=== PATIENT | female | born 1985 | race Caucasian/White ===

== ENCOUNTER 2020-11-09 12:18 | Outpatient (REF) | payer OTHER, SELFPAY ==
[2020-11-09 13:25] LABS: MANUAL DIFF FLAG NO
[2020-11-09 13:34] LABS: Basophils Percent Auto 0.4 % (0-2); Eosinophils Absolute Auto 0.2 X10*3/uL (0.0-0.4); Eosinophils Percent Auto 3.7 % (0-4); Hematocrit 40.3 % (37-47); Hemoglobin 13.1 g/dl (12.0-16.0); Imm Gran Abs Auto 0.02 X10*3/uL (0.00-0.03); Imm Gran Pct Auto 0.4 % (0.0-0.4); Lymphocytes Absolute Auto 2.3 X10*3/uL (1.2-4.9); Lymphocytes Percent Auto 40.7 % (20-40); Mean Corpuscular HGB Conc 32.5 g/dl (31.0-35.0); Mean Corpuscular Hemoglobin 27.1 pg (27.0-33.0); Mean Corpuscular Volume 83.4 fL (80-98); Mean Platelet Volume 10.9 fL (9.4-12.3); Monocytes Absolute Auto 0.5 X10*3/uL (0.1-1.2); Monocytes Percent Auto 9.4 % (2-11); Neutrophils Absolute Auto 2.6 X10*3/uL (2.0-8.3); Neutrophils Percent Auto 45.4 % (45-73); Platelet Count 334 X10*3/uL (160-400); Red Blood Count 4.83 X10*6/uL (4.20-5.50); Red Cell Distribution Width 14.2 % (11.0-16.0); White Blood Count 5.6 X10*3/uL (4.8-10.8)
[2020-11-09 13:40] LABS: Estimated Average Glucose 100 mg/dL; Hemoglobin A1c % 5.1 %
[2020-11-09 14:04] LABS: Alanine Aminotransferase 105 U/L (0-31); Albumin Level 4.1 g/dL (3.5-5.0); Alkaline Phosphatase 73 U/L (39-117); Anion Gap 12 (12-20); Aspartate Amino Transferase 40 U/L (5-31); Bilirubin Total 0.7 mg/dL (0.0-1.0); Blood Urea Nitrogen 10 mg/dL (9-16); Calcium 9.1 mg/dL (8.4-10.2); Carbon Dioxide 29 mmol/L (22-29); Chloride 102 mmol/L (96-108); Cholesterol 165 mg/dL; Estimated Glomerular Filt Rate > 60; Glucose Random 96 mg/dL (60-115); HDL Cholesterol 64 mg/dL; LDL Cholesterol Calculated 81 mg/dl; Potassium 4.2 mmol/L (3.3-5.1); Sodium 139 mmol/L (135-145); Total Protein 7.5 g/dL (6.5-8.0); Triglycerides 101 mg/dL
== END 2020-11-09 12:19 | disposition home or self-care (01) ==
LOC: HO.LAB 12:18
PROVIDERS: PCP Internal Medicine; Visit Provider Internal Medicine
DX: I10 Essential (primary) hypertension (principal); M54.5 Low back pain; N62 Hypertrophy of breast; R07.89 Other chest pain; R42 Dizziness and giddiness
CPT/HCPCS: 36415; 80053; 80061; 83036; 85025

== ENCOUNTER 2020-11-18 08:16 | Outpatient (REF) | payer OTHER, SELFPAY ==
--- NOTE | ~2020-11-18 | US_ITS ---
EXAMINATION: US ABDOMEN COMPLETE CLINICAL INFORMATION: Right upper quadrant pain. COMPARISON: Ultrasound abdomen 07/23/2018 TECHNIQUE: Real-time imaging of the abdominal viscera. FINDINGS: PANCREAS: Normal. ABDOMINAL AORTA: The proximal, mid, and distal segments are normal in caliber. INFERIOR VENA CAVA: Visualized portions are normal. LIVER: The liver is enlarged. The liver contour is normal. Parenchymal echogenicity is increased. No focal hepatic lesion. There is no intrahepatic biliary duct dilatation seen. GALLBLADDER: Surgically absent. COMMON BILE DUCT: Normal in caliber measuring 0.27 cm in diameter. RIGHT KIDNEY: Normal. No hydronephrosis. No renal calculi or focal parenchymal lesions. The kidney measures 12.2 cm in maximum dimension. LEFT KIDNEY: Normal. No hydronephrosis. No renal calculi or focal parenchymal lesions. The kidney measures 11.2 cm in maximum dimension. SPLEEN: Normal. The spleen measures 9.6 cm in maximum dimension. FREE FLUID: None. US/US abdomen complete IMPRESSION: Enlarged right hepatic lobe measuring 20.0 cm. No focal lesion seen in the liver. Similar findings were seen on the previous ultrasound 07/23/2018. Since the previous study, the gallbladder has been removed. The rest of the abdominal ultrasound is unremarkable.
[2020-11-18 10:44] LABS: Alanine Aminotransferase 176 U/L (0-31); Albumin Level 4.3 g/dL (3.5-5.0); Alkaline Phosphatase 65 U/L (39-117); Anion Gap 15 (12-20); Aspartate Amino Transferase 106 U/L (5-31); Bilirubin Total 0.5 mg/dL (0.0-1.0); Blood Urea Nitrogen 9 mg/dL (9-16); Calcium 8.9 mg/dL (8.4-10.2); Carbon Dioxide 25 mmol/L (22-29); Chloride 103 mmol/L (96-108); Estimated Glomerular Filt Rate > 60; Glucose Random 95 mg/dL (60-115); HBsAGNum1 0.18 S/CO (0.00-0.99); Hepatitis B Surface Antigen Negative (Negative); Potassium 4.2 mmol/L (3.3-5.1); Sodium 139 mmol/L (135-145); Total Protein 7.8 g/dL (6.5-8.0)
[2020-11-18 10:46] LABS: Thyroid Stimulating Hormone 2.34 uIU/mL (0.32-4.0)
[2020-11-18 10:57] LABS: HBS Num1 35.07 mIU/mL (0-7.99); HBc Num1 0.09 S/CO (0.00-0.79); Hepatitis B Core Antibody Nonreactive (Nonreactive); ~HepC Num1 0.18 S/CO (0.00-0.79); ~Hepatitis B Surface Antibody REACTIVE (Nonreactive); ~Hepatitis C Antibody Nonreactive (Nonreactive)
[2020-11-19 04:44] LABS: Hepatitis A Antibody IgM 0.21 Index (0-0.79); ~Hepatitis A Antibody IgM Nonreactive (Nonreactive)
== END 2020-11-18 08:17 | disposition home or self-care (01) ==
LOC: HO.US 08:16
PROVIDERS: PCP Internal Medicine; Visit Provider Internal Medicine
DX: R10.11 Right upper quadrant pain (principal); E66.01 Morbid (severe) obesity due to excess calories; H81.12 Benign paroxysmal vertigo, left ear; I10 Essential (primary) hypertension; M54.16 Radiculopathy, lumbar region; R74.01 Elevation of levels of liver transaminase levels
CPT/HCPCS: 36415; 76700; 80053; 84443; 86704; 86706; 86709; 86803; 87340

== ENCOUNTER 2020-11-22 00:26 | Emergency (ER) | payer OTHER, SELFPAY ==
[2020-11-22 00:31] VITALS: BP 130/82; PULSE 77; RESP 16; TEMP 36.8; O2SAT 100; BMI 39.6
--- NOTE | 2020-11-22 01:09 | ED_ITS ---
HPI - Headache General Chief Complaint: Headache Stated Complaint: Headache/? High Blood Pressure Time Seen by Provider: 11/22/20 00:32 Source: patient Mode of arrival: ambulatory History of Present Illness HPI Narrative: This is a 35-year-old female with history of headaches, hypertension who presents with onset of headache that goes from the right shoulder up along the side of her neck and along the right side of her head. This is not associated with photosensitivity auditory sensitivity but patient does describe some dizziness, mild nausea, and states that she did take Tylenol 1 time for the headache with mild improvement but then it came back. She denies any recent illnesses, fevers, chills. Patient did tell triage that the headache started on Sunday and that she had blurry vision, however these were not communicated at this time. She currently suffers from vertigo and is under the care of her primary care provider for this. She denies any speech changes or unilateral numbness/tingling/weakness. She was also concerned because she stated that her blood pressure machine indicated that it was low. Related Data Allergies Allergy/AdvReac Type Severity Reaction Status Date / Time No Known Allergies Allergy Unverified 11/22/20 00:30 Review of Systems Review of Systems: Pertinent positives and negatives as stated in HPI and 10 point review of systems is otherwise negative. PMFSH Past Medical History Source: nursing notes reviewed Medical History Cholecystectomy planned Fibromyalgia Vertigo Social History Social History Smoking Status: Former smoker Use of substances other than those prescribed or required for medical reasons: No Advance Directives: No Advance Directives Information Provided: No Physical Exam Vital Signs: Vital Signs: Last Vital Signs Temp 98.3 F 11/22/20 00:31 Pulse 77 11/22/20 00:31 Resp 16 11/22/20 00:31 BP 130/82 11/22/20 00:31 Pulse Ox 100 11/22/20 00:31 Body Mass Index 39.6 VITAL SIGNS: Reviewed. GENERAL: Well developed, well nourished, in no acute distress. HEAD: Normocephalic/atraumatic EYES: PERRLA, EOMI intact without pain, no nystagmus EARS: Ext canals without abnormality, TMs non-bulging and non-erythematous NOSE: Nares patent bilateral OROPHARYNX: no oral lesions noted, posterior pharynx clear NECK: Supple, no adenopathy LUNGS: Normal breath sounds. No adventitious sounds or accessory muscle use. SpO2<100> CARDIOVASCULAR: Regular rate and rhythm without noted murmurs ABDOMEN: Obese, Soft, non-tender, non-distended with bowel sounds. NEUROLOGIC: Alert and oriented x 4. Strength and sensation to light touch were grossly intact x 4, cranial nerves 2-12 are grossly intact, cerebellar testing is intact, no facial asymmetry. Course Course Course Narrative: This is a 35-year-old female with history and clinical presentation consistent with tension headache and suspect that the dizziness is part of her recently diagnosed vertigo. Low clinical suspicion for any intracranial pathologies. -labs, UA, U preg, IV fluids + migraine cocktail On review of all investigations there are no acute findings from baseline and on re-evaluation patient has had significant improvement of her headache and resolution of her dizziness. All results and findings were discussed with her bedside and she was strongly encouraged to follow-up with her primary care provider tomorrow morning for re-evaluation and further outpatient management her headaches. MDM - Headache Lab Data Result diagrams: 11/22/20 01:20 11/22/20 01:20 Labs: Lab Results 11/22/20 11/22/20 11/22/20 Range/Units 01:20 01:20 01:20 WBC 8.0 (4.8-10.8) X10*3/uL RBC 4.49 (4.20-5.50) X10*6/uL Hgb 12.1 (12.0-16.0) g/dl Hct 37.2 (37-47) % MCV 82.9 (80-98) fL MCH 26.9 L (27.0-33.0) pg MCHC 32.5 (31.0-35.0) g/dl RDW 14.4 (11.0-16.0) % Plt Count 284 (160-400) X10*3/uL MPV 10.1 (9.4-12.3) fL Immature Gran % (Auto) 0.2 (0.0-0.4) % Neut % (Auto) 42.5 L (45-73) % Lymph % (Auto) 44.0 H (20-40) % Garrard % (Auto) 9.0 (2-11) % Eos % (Auto) 4.1 H (0-4) % Baso % (Auto) 0.2 (0-2) % Lymph # (Auto) 3.5 (1.2-4.9) X10*3/uL Garrard # (Auto) 0.7 (0.1-1.2) X10*3/uL Eos # (Auto) 0.3 (0.0-0.4) X10*3/uL Baso # (Auto) 0.0 (0.0-0.2) X10*3/uL Abs Immat Gran (auto) 0.02 (0.00-0.03) X10*3/uL Absolute Neuts (auto) 3.4 (2.0-8.3) X10*3/uL Absolute Nucleated RBC 0.000 (0.0-0.012) X10*3/uL Nucleated RBC % (auto) 0.0 (0.0-0.2) /100WBC Sodium 137 (135-145) mmol/L Potassium 3.7 (3.3-5.1) mmol/L Chloride 104 (96-108) mmol/L Carbon Dioxide 24 (22-29) mmol/L Anion Gap 13 (12-20) BUN 13 (9-16) mg/dL Creatinine 0.77 (0.5-1.4) mg/dL Estim Creat Clear Calc 108.5 Estimated GFR > 60 Random Glucose 84 (60-115) mg/dL Calcium 8.4 (8.4-10.2) mg/dL Total Bilirubin 0.2 (0.0-1.0) mg/dL AST 36 H D (5-31) U/L ALT 110 H (0-31) U/L Alkaline Phosphatase 59 (39-117) U/L Total Protein 6.8 (6.5-8.0) g/dL Albumin 3.7 (3.5-5.0) g/dL Urine Color YELLOW Urine Appearance CLEAR Urine pH 6.0 (5.0-8.0) Ur Specific [place] 1.025 (1.005-1.025) Urine Protein NEG (NEG-TRACE) MG/DL Urine Glucose (UA) NEG (NEG) MG/DL Urine Ketones NEG (NEG) MG/DL Urine Blood NEG (NEG) Urine Nitrite NEG (NEG) Ur Leukocyte Esterase NEG (NEG) Discharge Plan Discharge Clinical Impression: Vertigo Headache Qualifiers: Headache type: tension-type Headache chronicity pattern: acute headache Intractability: not intractable Qualified Code(s): G44.209 - Tension-type headache, unspecified, not intractable Patient Disposition: Home, Self-Care Instructions: General Headache (ED), Vertigo (ED) Additional Instructions: 1. Tylenol 1000 mg, orally, every 6 hours as needed for headache control. Do not exceed 4000 mg within 24 hours. 2. Ibuprofen 400 mg, orally with milk or food, every 6 hours as needed for headache control. Recommend taking this in combination with the Tylenol for improved pain control. 3. Lidocaine patch, this is available at every [facility], apply to area of maximal tenderness on the neck/shoulder area as directed on the outside packaging. As there appears to be somewhat of a tension/stress component to your headaches. 4. Please follow-up with your primary care provider in the morning for re- evaluation. Do not hesitate to return to the emergency department for any acute worsening of your symptoms. Referrals: Graciela Benson MD [Primary Care Provider] - 2 days (Re-evaluation outpatient management of headaches.)
[2020-11-22 01:26] LABS: MANUAL DIFF FLAG NO
[2020-11-22 01:27] LABS: Basophils Percent Auto 0.2 % (0-2); Eosinophils Absolute Auto 0.3 X10*3/uL (0.0-0.4); Eosinophils Percent Auto 4.1 % (0-4); Hematocrit 37.2 % (37-47); Hemoglobin 12.1 g/dl (12.0-16.0); Imm Gran Abs Auto 0.02 X10*3/uL (0.00-0.03); Imm Gran Pct Auto 0.2 % (0.0-0.4); Lymphocytes Absolute Auto 3.5 X10*3/uL (1.2-4.9); Mean Corpuscular HGB Conc 32.5 g/dl (31.0-35.0); Mean Corpuscular Hemoglobin 26.9 pg (27.0-33.0); Mean Corpuscular Volume 82.9 fL (80-98); Mean Platelet Volume 10.1 fL (9.4-12.3); Monocytes Absolute Auto 0.7 X10*3/uL (0.1-1.2); Neutrophils Absolute Auto 3.4 X10*3/uL (2.0-8.3); Neutrophils Percent Auto 42.5 % (45-73); Platelet Count 284 X10*3/uL (160-400); Red Blood Count 4.49 X10*6/uL (4.20-5.50); Red Cell Distribution Width 14.4 % (11.0-16.0)
[2020-11-22 01:29] LABS: Appearance Urine CLEAR; Color Urine YELLOW; Glucose Urine UA NEG (NEG); Leukocyte Esterase Urine NEG (NEG); Nitrite Urine NEG (NEG); Specific Gravity - Urine 1.025 (1.005-1.025); UACC Culture Trigger NO; Urine Blood NEG (NEG); Urine Ketones NEG (NEG); Urine Protein NEG (NEG-TRACE)
[2020-11-22] MEDS: 0.9 % Sodium Chloride 1,000 ML 999 ML IV (01:30)
[2020-11-22] MEDS: diphenhydrAMINE HCL 50 MG/ML VIAL 25 MG IVPUSH (01:43)
[2020-11-22] MEDS: Ketorolac Tromethamine 15 MG/ML VIAL IVPUSH (01:43)
[2020-11-22] MEDS: Metoclopramide HCl 10 MG/2 ML VIAL IVPUSH (01:43)
[2020-11-22] MEDS: Acetaminophen 325 MG TABLET 975 MG PO (01:44)
[2020-11-22 01:49] LABS: Alanine Aminotransferase 110 U/L (0-31); Albumin Level 3.7 g/dL (3.5-5.0); Alkaline Phosphatase 59 U/L (39-117); Anion Gap 13 (12-20); Aspartate Amino Transferase 36 U/L (5-31); Bilirubin Total 0.2 mg/dL (0.0-1.0); Blood Urea Nitrogen 13 mg/dL (9-16); Calcium 8.4 mg/dL (8.4-10.2); Carbon Dioxide 24 mmol/L (22-29); Chloride 104 mmol/L (96-108); Creatinine Clr Calc Pharmacy 108.5; Estimated Glomerular Filt Rate > 60; Glucose Random 84 mg/dL (60-115); Potassium 3.7 mmol/L (3.3-5.1); Sodium 137 mmol/L (135-145); Total Protein 6.8 g/dL (6.5-8.0)
[2020-11-22 02:27] LABS: UPreg QC Valid YES; Urine Pregnancy NEGATIVE (NEGATIVE)
== END 2020-11-22 02:31 | disposition home or self-care (01) ==
PROVIDERS: Emergency Provider Student in an Organized Health Care Education/Training Program; PCP Internal Medicine
DX: G44.209 Tension-type headache, unspecified, not intractable (principal); R42 Dizziness and giddiness; I10 Essential (primary) hypertension
CPT/HCPCS: 36415; 80053; 81003; 81025; 85025; 96361; 96374; 96375; 99284; J1200; J1885; J2765

== ENCOUNTER → 2020-11-26 13:06 | Outpatient (BNVA) | payer OTHER, SELFPAY | PROVIDERS: PCP Internal Medicine; Visit Provider Student in an Organized Health Care Education/Training Program | DX: M54.5 Low back pain (principal) | CPT/HCPCS: 99212 ==

== ENCOUNTER 2021-01-11 14:01 | Outpatient (REF) | payer OTHER, SELFPAY ==
[2021-01-11 15:10] LABS: Prothrombin Time 11.9 SEC (10.8-13.0)
[2021-01-11 15:22] LABS: Alanine Aminotransferase 69 U/L (0-31); Alkaline Phosphatase 66 U/L (39-117); Aspartate Amino Transferase 37 U/L (5-31); Bilirubin Direct 0.2 mg/dL (0.0-0.5); Bilirubin Total 0.4 mg/dL (0.0-1.0); Iron 143 mcg/dL (30-160); Percent Iron Saturation 45 % (15-50); Total Iron Binding Capacity 318 mcg/dL (228-428); Total Protein 7.2 g/dL (6.5-8.0); Unsaturated Iron Binding 175 ug/dL
[2021-01-11 15:44] LABS: Ferritin 222 ng/mL (10-122)
[2021-01-12 08:03] LABS: ~HepC Num1 0.16 S/CO (0.00-0.79); ~Hepatitis C Antibody Nonreactive (Nonreactive)
[2021-01-12 11:42] LABS: Alpha 1 Anti-trypsin 152 mg/dL (83-199)
[2021-01-12 14:12] LABS: Alpha 1 Anti-trypsin 156 mg/dL (83-199); Ceruloplasmin 33 mg/dL (18-53)
[2021-01-13 13:32] LABS: Anti Nuclear Antibody Screen NEGATIVE (NEGATIVE)
[2021-01-13 15:37] LABS: Mitochondrial Antibodies NEGATIVE (NEGATIVE)
[2021-01-14 23:06] LABS: Smooth Muscle Antibody <20 U (<20)
== END 2021-01-11 14:02 | disposition home or self-care (01) ==
LOC: HO.LAB 14:01
PROVIDERS: PCP Internal Medicine; Visit Provider Internal Medicine
DX: R79.89 Other specified abnormal findings of blood chemistry (principal); K76.0 Fatty (change of) liver, not elsewhere classified
CPT/HCPCS: 36415; 80076; 82103; 82390; 82728; 83540; 85610; 86038; 86039; 86255; 86256; 86803

== ENCOUNTER 2021-01-12 08:53 | Day surgery (SDC) | payer OTHER, SELFPAY ==
--- NOTE | 2021-01-10 13:09 | P.CONAN_ITS ---
Documented by User: Tere Hastings 01/10/21 13:10 HPI - Anesthesia Eval Consult details Narrative: 35yo F for Upper Endoscopy PMFSH Active Problems Active Problems: All Active Problems (Updated 11/26/20 @ 13:20 by Ana Jones MD) Low back pain (Acute) Past Medical History Medical History (Updated 01/12/21 @ 09:55 by Ysabel Ramírez) Cholecystectomy planned Epidural anesthesia-induced headache during labor and delivery Fibromyalgia GERD (gastroesophageal reflux disease) hemorrhage Scoliosis Spina bifida Vertigo Vitamin D deficiency Vocal cord polyp Family History Family History Mother Lymphoma Diabetes Father HTN (hypertension) Surgical History Surgical History (Updated 01/12/21 @ 09:55 by Ysabel Ramírez) H/O vaginal surgery History of vocal cord polypectomy Hx laparoscopic cholecystectomy Social History Social History Alcohol intake: current Alcohol intake frequency: holidays/special occasions only Smoking Status: Never smoker Second Hand Smoke Exposure: No Use of substances other than those prescribed or required for medical reasons: No Are you DNR?: No Advance Directives: No Advance Directives Information Provided: Yes Patient : No (HCG negative) Meds Allergies Allergy/AdvReac Type Severity Reaction Status Date / Time No Known Allergies Allergy Verified 11/26/20 13:11 Home Medications Medication Instructions Recorded Confirmed Last Taken Type albuterol sulfate 90 mcg/actuation 2 puff INHALATION Q6H PRN 11/26/20 11/26/20 Unknown History aerosol inhaler cholecalciferol (vitamin D3) 25 25 mcg PO DAILY 11/26/20 11/26/20 Unknown History mcg (1,000 unit) capsule gabapentin 100 mg capsule 100 mg PO BEDTIME 11/26/20 11/26/20 Unknown History ibuprofen 600 mg tablet 600 mg PO Q8H PRN 11/26/20 11/26/20 Unknown History lisinopril 10 mg tablet 10 mg PO DAILY 11/26/20 11/26/20 Unknown History omeprazole 20 mg capsule,delayed 20 mg PO DAILY 11/26/20 11/26/20 Unknown History release sertraline 100 mg tablet 100 mg PO DAILY 11/26/20 11/26/20 Unknown History Exam Exam Date and Time: January 10, 2021 1309 Assessment and Plan Assessment Anesthesia Assessment: Chart Reviewed Documented by User: Ysabel Ramírez 01/12/21 09:57 PMFSH Past Medical History Medical History (Updated 01/12/21 @ 09:55 by Ysabel Ramírez) Cholecystectomy planned Epidural anesthesia-induced headache during labor and delivery Fibromyalgia GERD (gastroesophageal reflux disease) hemorrhage Scoliosis Spina bifida Vertigo Vitamin D deficiency Vocal cord polyp Family History Family History Mother Lymphoma Diabetes Father HTN (hypertension) Family history of problems with anesthesia: No Surgical History Surgical History (Updated 01/12/21 @ 09:55 by Ysabel Ramírez) H/O vaginal surgery History of vocal cord polypectomy Hx laparoscopic cholecystectomy History of Problems with Anesthesia: No Social History Social History Alcohol intake: current Alcohol intake frequency: holidays/special occasions only Smoking Status: Never smoker Second Hand Smoke Exposure: No Use of substances other than those prescribed or required for medical reasons: No Are you DNR?: No Advance Directives: No Advance Directives Information Provided: Yes Patient : No (HCG negative) Meds Allergies Allergy/AdvReac Type Severity Reaction Status Date / Time No Known Allergies Allergy Verified 11/26/20 13:11 Home Medications Medication Instructions Recorded Confirmed Last Taken Type albuterol sulfate 90 mcg/actuation 2 puff INHALATION Q6H PRN 11/26/20 11/26/20 Unknown History aerosol inhaler cholecalciferol (vitamin D3) 25 25 mcg PO DAILY 11/26/20 11/26/20 Unknown History mcg (1,000 unit) capsule gabapentin 100 mg capsule 100 mg PO BEDTIME 11/26/20 11/26/20 Unknown History ibuprofen 600 mg tablet 600 mg PO Q8H PRN 11/26/20 11/26/20 Unknown History lisinopril 10 mg tablet 10 mg PO DAILY 11/26/20 11/26/20 Unknown History omeprazole 20 mg capsule,delayed 20 mg PO DAILY 11/26/20 11/26/20 Unknown Hist ory release sertraline 100 mg tablet 100 mg PO DAILY 11/26/20 11/26/20 Unknown History Exam Height,Weight and Vital Signs: Vital Signs Temp Pulse Resp BP Pulse Ox 01/12/21 09:23 96.2 F L 82 16 124/74 98 Pertinent Lab Results Pertinent Lab Results: Lab Results 01/12/21 Range/Units 08:55 Urine Test NEGATIVE (NEGATIVE) Airway Mallampati Class: II TM Dist: >3cm Neck ROM: Full Loose/Missing/Broken Teeth: Yes (Top front chipped) Heart: RRR Lungs: CTAB Assessment and Plan Assessment Anesthesia Assessment: Anesthesia Plan Discussed and Chart Reviewed Final Anesthetic Review NPO: Yes ASA Class: III Final Preanesthetic Review: No Changes in Pt Med Stat, Meds/Allgs Chart Reviewed, Consent Obtained/Reviewed and Anes Risks/Benef Reviewed Patient Risk: Intermediate Procedure Risk: Low Assessment/Block/Sedation in SS: Assess/Block/Sedation-SS Anesthetic Plan Anesthetic Plan: MAC: Disposition: Standard PACU
[2021-01-12 09:11] LABS: UPreg QC Valid YES; Urine Pregnancy NEGATIVE (NEGATIVE)
[2021-01-12 09:23] VITALS: BP 124/74; PULSE 82; RESP 16; TEMP 35.7; O2SAT 98; BMI 39.6
[2021-01-12] MEDS: Lactated Ringers 1,000 ML 100 ML IVCONT (09:32)
[2021-01-12 10:25] VITALS: BP 106/63; PULSE 87; RESP 16; TEMP 36.8; O2SAT 96
--- NOTE | 2021-01-12 10:28 | PM.OP ---
Brief Operative Note Date of Service: 01/12/21 Pre-op diagnosis: GERD Post-op diagnosis: other (Hiatal hernia, GERD, Gastritis) Procedure: EGD with biopsies Surgeon: Demian Santos Anesthesia: MAC Was an Psychiatry Teacher used for this Procedure?: No Estimated blood loss (mL): 3.0 Pathology: other (A. Gastric antrum B. EG Junction at 35cm) Condition: stable Disposition: PACU
[2021-01-12 10:40] VITALS: BP 112/69; PULSE 82; RESP 16; TEMP 36.8; O2SAT 98
--- NOTE | 2021-01-12 10:42 | OP_ITS ---
SURGEON: Demian Santos MD INDICATIONS: The patient presents for evaluation of chronic gastroesophageal reflux. Full consent has been obtained from her for this, including risks of bleeding and perforation. PREOPERATIVE DIAGNOSIS: Gastroesophageal reflux. POSTOPERATIVE DIAGNOSIS: PROCEDURE PERFORMED: Esophagogastroduodenoscopy with biopsy. ESTIMATED BLOOD LOSS: COMPLICATIONS: ANESTHESIA: Monitored anesthesia care. ASSISTANTS: SPECIMENS: POSTOPERATIVE DIAGNOSES: Gastroesophageal reflux, gastritis, hiatal hernia. DESCRIPTION OF PROCEDURE: The patient was placed in the left lateral decubitus position. The Olympus video gastroscope was passed in the posterior oropharynx and upper esophagus under direct vision. The scope was passed slowly to the distal esophagus. The gastroesophageal junction appeared at 35 cm. There was some slight irregularity consistent with chronic reflux, but no esophagitis nor any evidence of Cali's esophagus. The scope entered into the stomach. There was a small hiatal hernia. The scope was advanced to pylorus and the duodenum was cannulated to the descending portion. The duodenum including the bulb appeared normal without mass or ulceration. The scope was withdrawn back into the stomach. The gastric antrum had areas of gastritis with some erythema and edema. There were no ulcerations nor erosions. There was good peristalsis. The scope was retroflexed visualizing the proximal stomach carefully, which appeared normal, without any sign of mass or ulceration. Scope was straightened. Biopsies were obtained from the gastric antrum. Scope was withdrawn back into the esophagus. Biopsies were obtained from the EG junction at 35 cm. Proximal to this, the esophageal mucosa appeared normal. The scope was withdrawn from the patient. She tolerated the procedure well and was returned to the recovery area in stable condition. IMPRESSION: 1. Hiatal hernia, gastroesophageal reflux. 2. Gastritis. PLAN: The results of the biopsy will be checked. She does report that she continues to do well on her daily omeprazole and I have advised her to continue that on a long-term basis. If Helicobacter pylori is present in the gastric biopsies, we could consider treating that depending upon how she is doing from a clinical standpoint. In regard to the recent elevated LFTs and fatty liver, her most recent liver profile on January 11 was much improved with an AST 37 and ALT of 69, with a normal bilirubin, albumin, and alkaline phosphatase. She will be seen in the fall for a followup visit in that regard. MD HARPREET [place]ied[place]/COLBY / [id number] RAJESH
== END 2021-01-12 10:59 | disposition home or self-care (01) ==
PROVIDERS: Nurse Practitioner; PCP Internal Medicine; Visit Provider Internal Medicine
PROC: 0DJ08ZZ Inspection of Upper Intestinal Tract, Via Natural or Artificial Opening Endoscopic (ICD-10-PCS; CPT 43235; principal; 2021-01-12 09:50)
DX: K21.00 Gastro-esophageal reflux disease with esophagitis, without bleeding (principal); K29.50 Unspecified chronic gastritis without bleeding; B96.81 Helicobacter pylori [H. pylori] as the cause of diseases classified elsewhere; K44.9 Diaphragmatic hernia without obstruction or gangrene; K76.0 Fatty (change of) liver, not elsewhere classified; Z79.899 Other long term (current) drug therapy
CPT/HCPCS: 43239; 81025; 88305; 88342; J3010

== ENCOUNTER 2021-03-08 13:34 | Outpatient (REF) | payer OTHER, SELFPAY ==
--- NOTE | ~2021-03-08 | XR_ITS ---
EXAMINATION: XR LUMBAR SPINE XR HIP, BILATERAL CLINICAL INFORMATION: Low back pain and bilateral hip pain. COMPARISON: None TECHNIQUE: Lumbar spine 3 views. 2 views each hip. FINDINGS: LUMBAR SPINE: There is normal lumbar lordosis. The vertebral heights, alignment and disc heights are normal. There is no visible acute fracture, dislocation or lytic process seen. The SI joints are symmetrical and normal. Incidental findings of a copper T/IUD within the pelvis is noted. RIGHT HIP: There is no visible acute fracture, dislocation or subluxation. No bony erosive changes. The soft tissues are normal. LEFT HIP: The hip joint space is maintained normal. There is a small bone fragment lateral acetabulum likely old injury. No acute fracture seen. The soft tissues are normal. XR/XR hip LT min 2V IMPRESSION: Unremarkable lumbar spine exam. Small avulsion fracture fragment lateral acetabulum left hip. No acute fracture or dislocation seen. The soft tissues are normal.
--- NOTE | ~2021-03-08 | XR_ITS ---
EXAMINATION: XR LUMBAR SPINE XR HIP, BILATERAL CLINICAL INFORMATION: Low back pain and bilateral hip pain. COMPARISON: None TECHNIQUE: Lumbar spine 3 views. 2 views each hip. FINDINGS: LUMBAR SPINE: There is normal lumbar lordosis. The vertebral heights, alignment and disc heights are normal. There is no visible acute fracture, dislocation or lytic process seen. The SI joints are symmetrical and normal. Incidental findings of a copper T/IUD within the pelvis is noted. RIGHT HIP: There is no visible acute fracture, dislocation or subluxation. No bony erosive changes. The soft tissues are normal. LEFT HIP: The hip joint space is maintained normal. There is a small bone fragment lateral acetabulum likely old injury. No acute fracture seen. The soft tissues are normal. XR/XR hip RT min 2V IMPRESSION: Unremarkable lumbar spine exam. Small avulsion fracture fragment lateral acetabulum left hip. No acute fracture or dislocation seen. The soft tissues are normal.
--- NOTE | ~2021-03-08 | XR_ITS ---
EXAMINATION: XR LUMBAR SPINE XR HIP, BILATERAL CLINICAL INFORMATION: Low back pain and bilateral hip pain. COMPARISON: None TECHNIQUE: Lumbar spine 3 views. 2 views each hip. FINDINGS: LUMBAR SPINE: There is normal lumbar lordosis. The vertebral heights, alignment and disc heights are normal. There is no visible acute fracture, dislocation or lytic process seen. The SI joints are symmetrical and normal. Incidental findings of a copper T/IUD within the pelvis is noted. RIGHT HIP: There is no visible acute fracture, dislocation or subluxation. No bony erosive changes. The soft tissues are normal. LEFT HIP: The hip joint space is maintained normal. There is a small bone fragment lateral acetabulum likely old injury. No acute fracture seen. The soft tissues are normal. XR/XR lumbar spine 2-3V IMPRESSION: Unremarkable lumbar spine exam. Small avulsion fracture fragment lateral acetabulum left hip. No acute fracture or dislocation seen. The soft tissues are normal.
[2021-03-08 14:54] LABS: Anion Gap 12 (12-20); Calcium 9.3 mg/dL (8.4-10.2); Carbon Dioxide 26 mmol/L (22-29); Chloride 104 mmol/L (96-108); Sodium 138 mmol/L (135-145)
[2021-03-08 15:14] LABS: T4 Thyroxine 6.1 ug/dL (4.5-12.0); Thyroid Stimulating Hormone 1.68 uIU/mL (0.32-4.0)
== END 2021-03-08 13:35 | disposition home or self-care (01) ==
LOC: HO.XRAY 13:34
PROVIDERS: Absent Provider Psychiatry & Neurology Neurology; PCP Student in an Organized Health Care Education/Training Program; Visit Provider Student in an Organized Health Care Education/Training Program
DX: R25.2 Cramp and spasm (principal); M54.5 Low back pain
CPT/HCPCS: 36415; 72100; 73502; 80051; 82310; 82550; 83735; 84436; 84443

== ENCOUNTER 2021-04-08 15:26 | Outpatient (REF) | payer OTHER, SELFPAY ==
[2021-04-08 16:07] LABS: Prothrombin Time 11.5 SEC (9.9-13.0)
[2021-04-08 16:14] LABS: Alanine Aminotransferase 218 U/L (0-31); Alkaline Phosphatase 65 U/L (39-117); Aspartate Amino Transferase 129 U/L (5-31); Bilirubin Direct 0.2 mg/dL (0.0-0.5); Bilirubin Total 0.4 mg/dL (0.0-1.0); Iron 88 mcg/dL (30-160); Total Protein 7.3 g/dL (6.5-8.0)
[2021-04-08 16:24] LABS: Percent Iron Saturation 27 % (15-50); Total Iron Binding Capacity 330 mcg/dL (228-428); Unsaturated Iron Binding 242 ug/dL
[2021-04-08 16:32] LABS: Ferritin 559 ng/mL (10-122)
[2021-04-09 20:38] LABS: Anti Nuclear Antibody Screen NEGATIVE (NEGATIVE)
[2021-04-11 07:11] LABS: Mitochondrial Antibodies NEGATIVE (NEGATIVE)
[2021-04-11 23:10] LABS: Alpha 1 Anti-trypsin 150 mg/dL (83-199); Ceruloplasmin 33 mg/dL (18-53)
[2021-04-12 18:21] LABS: FIB-ALT 194 U/L (6-29); FIB-Alpha-2-Macroglobulin 200 mg/dL (106-279); FIB-Apolipoprotein A1 168 mg/dL (101-198); FIB-GGT 39 U/L (3-50); FIB-Haptoglobin 74 mg/dL (43-212); FIB-Total Bilirubin 0.3 mg/dL (0.2-1.2); Liver Fibrosis Stage F0; Nec Inflam Act Grade A3; Nec Inflam Act Score 0.75
[2021-04-14 12:11] LABS: Smooth Muscle Antibody <20 U (<20)
== END 2021-04-08 15:27 | disposition home or self-care (01) ==
LOC: HO.LAB 15:26
PROVIDERS: PCP Internal Medicine; Visit Provider Internal Medicine
DX: R79.89 Other specified abnormal findings of blood chemistry (principal); K76.0 Fatty (change of) liver, not elsewhere classified
CPT/HCPCS: 36415; 80076; 81596; 82103; 82390; 82728; 83540; 85610; 86038; 86039; 86255; 86256

== ENCOUNTER 2021-05-09 13:25 | Outpatient (REF) | payer OTHER, SELFPAY ==
[2021-05-09 14:26] LABS: Alanine Aminotransferase 72 U/L (0-31); Albumin Level 3.9 g/dL (3.5-5.0); Alkaline Phosphatase 64 U/L (39-117); Aspartate Amino Transferase 38 U/L (5-31); Bilirubin Direct 0.2 mg/dL (0.0-0.5); Bilirubin Total 0.5 mg/dL (0.0-1.0); Total Protein 6.9 g/dL (6.5-8.0)
== END 2021-05-09 13:26 | disposition home or self-care (01) ==
LOC: HO.LAB 13:25
PROVIDERS: PCP Internal Medicine; Visit Provider Internal Medicine
DX: R79.89 Other specified abnormal findings of blood chemistry (principal); K76.0 Fatty (change of) liver, not elsewhere classified
CPT/HCPCS: 36415; 80076

== ENCOUNTER 2021-05-14 07:41 | Emergency (ER) | payer OTHER, SELFPAY ==
--- NOTE | ~2021-05-14 | US_ITS ---
EXAMINATION: US ABDOMEN LIMITED CLINICAL INFORMATION: Right upper quadrant pain. History of elevated LFTs.. COMPARISON: Ultrasound of the abdomen dated 11/18/2020 and 07/23/2018. TECHNIQUE: Real-time imaging of the right upper quadrant abdominal viscera. FINDINGS: PANCREAS: Normal. LIVER: Abnormal. The liver is normal in size. The liver contour is normal. There is diffuse increased liver parenchymal echogenicity, consistent with hepatic steatosis. No focal hepatic lesion. There is no intrahepatic biliary duct dilatation seen. With color Doppler imaging, normal hepatopetal flow is seen within the main and right portal vein. Dedicated Doppler ultrasound of the liver was not performed. GALLBLADDER: Normal. The gallbladder is physiologically distended without evidence of stones, sludge, polyps, wall thickening or pericholecystic fluid. COMMON BILE DUCT: Normal in caliber measuring 0.2 cm in diameter. RIGHT KIDNEY: Normal. No hydronephrosis. No renal calculi or focal parenchymal lesions. The kidney measures 11.6 cm in maximum dimension. FREE FLUID: None. US/US abdomen limited IMPRESSION: 1. Diffuse hepatic steatosis. 2. Otherwise unremarkable right upper quadrant ultrasound.
--- NOTE | 2021-05-14 08:49 | ED_ITS ---
HPI - Abdominal Pain General Chief Complaint: Abdominal Pain Stated Complaint: ABD PAIN Time Seen by Provider: 05/14/21 08:49 Source: patient Mode of arrival: ambulatory Limitations: no limitations History of Present Illness MD elicited complaint: abdominal pain Pertinent past history: other (elevated LFTs and fatty liver) Onset (ago): month(s) (November) Pain Consistency: intermittent Location: RUQ Severity: mild Quality: cramping Radiation: none Migration to: no migration Exacerbating factors: nothing Relieving factors: nothing Context: history of similar episodes (was told she had a fatty liver by GI doctor) Associated symptoms: nausea and vomiting (intermittent AM since November) Related Data Home Medications Medication Instructions Recorded Confirmed albuterol sulfate 90 mcg/actuation 2 puff INHALATION Q6H PRN 11/26/20 11/26/20 aerosol inhaler cholecalciferol (vitamin D3) 25 25 mcg PO DAILY 11/26/20 11/26/20 mcg (1,000 unit) capsule gabapentin 100 mg capsule 100 mg PO BEDTIME 11/26/20 11/26/20 ibuprofen 600 mg tablet 600 mg PO Q8H PRN 11/26/20 11/26/20 lisinopril 10 mg tablet 10 mg PO DAILY 11/26/20 11/26/20 omeprazole 20 mg capsule,delayed 20 mg PO DAILY 11/26/20 11/26/20 release sertraline 100 mg tablet 100 mg PO DAILY 11/26/20 11/26/20 Previous Rx's Medication Instructions Recorded tizanidine 2 mg tablet 2 mg PO BEDTIME PRN #30 tab 11/26/20 nitrofurantoin 100 mg PO Q12H 5 Days #10 cap 05/14/21 monohydrate/macrocrystals 100 mg capsule (Macrobid) ondansetron 4 mg disintegrating 4 mg PO Q8H PRN #20 tab 05/14/21 tablet Allergies Allergy/AdvReac Type Severity Reaction Status Date / Time No Known Allergies Allergy Verified 11/26/20 13:11 Review of Systems Review of Systems Constitutional : No Weight loss, No Fever, No Chills ENT/Mouth : No sore throat, No Rhinorrhea Eyes: No Swelling, No Redness Cardiovascular : No Chest Pain, No SOB, NoEdema Respiratory : No Cough, No Sputum, No Wheezing Gastrointestinal : Positive Nausea, Positive Vomiting, no Diarrhea, positive abdominal Pain, No Hematochezia, No Melena Genitourinary : No Dysuria, No Urinary Frequency, No Hematuria, No Urgency Musculoskeletal : No joint pain, No Myalgias, No Joint Swelling Skin : No Skin Lesions, No rash Neuro : No Weakness, No Numbness, No Dizziness, No Headache Psych : No Anxiety/Panic, No Depression Heme/Lymph: No Bruising, No Lymphadenopathy Endocrine : No Polyuria, No Polydipsia All other systems reviewed and are negative. Physical Exam Vital Signs: Vital Signs: Last Vital Signs Temp 98.4 F 05/14/21 09:02 Pulse 78 05/14/21 09:02 Resp 16 05/14/21 09:02 BP 110/70 05/14/21 09:02 Pulse Ox 98 05/14/21 09:02 Body Mass Index 39.1 Appearance: Alert. Oriented X3. No acute distress. Eyes: Pupils equal, round and reactive to light. ENT: Pharynx normal. Neck: Normal inspection. Neck supple. CVS: Normal heart rate and rhythm. Pulses normal. Respiratory: No respiratory distress. Breath sounds normal. Abdomen: Soft and mild RUQ ttp no rebound or guarding, no mass felt Skin: Skin warm and dry. Normal skin color. Normal skin turgor. Extremities: No lower extremity edema. No calf ttp Neuro: Oriented X 3. No motor deficit. No sensory deficit. Course Course Course Narrative: LFTs down, fatty liver, + UA will dc home MDM - Abdominal Pain MDM Narrative Medical decision making narrative: 36 yo female chronic abdominal pain RUQ known fatty liver has seen GI in past at one point her LFTs were in 200s she cut out ETOH and APAP / greasy food at times has AM n/v - came in today as pain came ba ck and she is worried. At this time will need repeat labs, US to evaluate liver she is not toxic appearing anticipate DC home pending results Lab Data Result diagrams: 05/14/21 10:00 05/14/21 10:00 Labs: Lab Results 05/14/21 05/14/21 05/14/21 Range/Units 09:58 09:58 10:00 WBC 6.6 (4.8-10.8) X10*3/uL RBC 5.09 (4.20-5.50) X10*6/uL Hgb 13.6 (12.0-16.0) g/dl Hct 40.9 (37-47) % MCV 80.4 (80-98) fL MCH 26.7 L (27.0-33.0) pg MCHC 33.3 (31.0-35.0) g/dl RDW 13.2 (11.0-16.0) % Plt Count 294 (160-400) X10*3/uL MPV 10.5 (9.4-12.3) fL Immature Gran % (Auto) 0.5 H (0.0-0.4) % Neut % (Auto) 42.9 L (45-73) % Lymph % (Auto) 42.3 H (20-40) % [place] % (Auto) 11.4 H (2-11) % Eos % (Auto) 2.4 (0-4) % Baso % (Auto) 0.5 (0-2) % Lymph # (Auto) 2.8 (1.2-4.9) X10*3/uL [place] # (Auto) 0.8 (0.1-1.2) X10*3/uL Eos # (Auto) 0.2 (0.0-0.4) X10*3/uL Baso # (Auto) 0.0 (0.0-0.2) X10*3/uL Abs Immat Gran (auto) 0.03 (0.00-0.03) X10*3/uL Absolute Neuts (auto) 2.8 (2.0-8.3) X10*3/uL Absolute Nucleated RBC 0.000 (0.0-0.012) X10*3/uL Nucleated RBC % (auto) 0.0 (0.0-0.2) /100WBC Sodium (135-145) mmol/L Potassium (3.3-5.1) mmol/L Chloride (96-108) mmol/L Carbon Dioxide (22-29) mmol/L Anion Gap (12-20) BUN (9-16) mg/dL Creatinine (0.5-1.4) mg/dL Estim Creat Clear Calc Estimated GFR Random Glucose (60-115) mg/dL Calcium (8.4-10.2) mg/dL Magnesium (1.6-2.6) mg/dL Total Bilirubin (0.0-1.0) mg/dL Direct Bilirubin (0.0-0.5) mg/dL AST (5-31) U/L ALT (0-31) U/L Alkaline Phosphatase (39-117) U/L Total Protein (6.5-8.0) g/dL Albumin (3.5-5.0) g/dL Lipase (8-78) U/L Urine Color YELLOW Urine Appearance HAZY Urine pH 6.0 (5.0-8.0) Ur Specific Lancing 1.010 (1.005-1.025) Urine Protein TRACE (NEG-TRACE) MG/DL Urine Glucose (UA) NEG (NEG) MG/DL Urine Ketones NEG (NEG) MG/DL Urine Blood 2+ H (NEG) Urine Nitrite NEG (NEG) Ur Leukocyte Esterase 3+ H (NEG) Urine RBC 5-9 H (0) /HPF Urine WBC 30-49 H (0-4) /HPF Ur Squamous Epith Cells 2+ /LPF Urine Bacteria 2+ /LPF Urine Test NEGATIVE (NEGATIVE) 05/14/21 Range/Units 10:00 WBC (4.8-10.8) X10*3/uL RBC (4.20-5.50) X10*6/uL Hgb (12.0-16.0) g/dl Hct (37-47) % MCV (80-98) fL MCH (27.0-33.0) pg MCHC (31.0-35.0) g/dl RDW (11.0-16.0) % Plt Count (160-400) X10*3/uL MPV (9.4-12.3) fL Immature Gran % (Auto) (0.0-0.4) % Neut % (Auto) (45-73) % Lymph % (Auto) (20-40) % [place] % (Auto) (2-11) % Eos % (Auto) (0-4) % Baso % (Auto) (0-2) % Lymph # (Auto) (1.2-4.9) X10*3/uL [place] # (Auto) (0.1-1.2) X10*3/uL Eos # (Auto) (0.0-0.4) X10*3/uL Baso # (Auto) (0.0-0.2) X10*3/uL Abs Immat Gran (auto) (0.00-0.03) X10*3/uL Absolute Neuts (auto) (2.0-8.3) X10*3/uL Absolute Nucleated RBC (0.0-0.012) X10*3/uL Nucleated RBC % (auto) (0.0-0.2) /100WBC Sodium 137 (135-145) mmol/L Potassium 3.9 (3.3-5.1) mmol/L Chloride 106 (96-108) mmol/L Carbon Dioxide 25 (22-29) mmol/L Anion Gap 10 L (12-20) BUN 11 (9-16) mg/dL Creatinine 0.78 (0.5-1.4) mg/dL Estim Creat Clear Calc 105.2 Estimated GFR > 60 Random Glucose 89 (60-115) mg/dL Calcium 9.1 (8.4-10.2) mg/dL Magnesium 2.0 (1.6-2.6) mg/dL Total Bilirubin 0.3 (0.0-1.0) mg/dL Direct Bilirubin 0.2 (0.0-0.5) mg/dL AST 34 H (5-31) U/L ALT 66 H (0-31) U/L Alkaline Phosphatase 68 (39-117) U/L Total Protein 7.2 (6.5-8.0) g/dL Albumin 3.9 (3.5-5.0) g/dL Lipase 37 (8-78) U/L Urine Color Urine Appearance Urine pH (5.0-8.0) Ur Specific Lancing (1.005-1.025) Urine Protein (NEG-TRACE) MG/DL Urine Glucose (UA) (NEG) MG/DL Urine Ketones (NEG) MG/DL Urine Blood (NEG) Urine Nitrite (NEG) Ur Leukocyte Esterase (NEG) Urine RBC (0) /HPF Urine WBC (0-4) /HPF Ur Squamous Epith Cells /LPF Urine Bacteria /LPF Urine Test (NEGATIVE) Discharge Plan Discharge Clinical Impression: Fatty liver UTI (urinary tract infection) Qualifiers: Urinary tract infection type: acute cystitis Hematuria presence: with hematuria Qualified Code(s): N30.01 - Acute cystitis with hematuria Patient Disposition: Home, Self-Care Instructions: Urinary Tract Infection in Women (ED), Non-Alcoholic Fatty Liver Disease (ED) Additional Instructions: return to ED for any worsening symptoms or concerns avoid alcohol and tylenol (acetaminophen) Prescriptions: New nitrofurantoin monohyd/m-cryst [Macrobid] 100 mg capsule 100 mg PO Q12H 5 Days Qty: 10 RF: 0 ondansetron 4 mg tablet,disintegrating 4 mg PO Q8H PRN (Reason: nausea and vomiting) Qty: 20 RF: 0 No Action lisinopril 10 mg tablet 10 mg PO DAILY RF: 0 cholecalciferol (vitamin D3) 25 mcg (1,000 unit) capsule 25 mcg PO DAILY RF: 0 omeprazole 20 mg capsule,delayed release(DR/EC) 20 mg PO DAILY RF: 0 albuterol sulfate 90 mcg/actuation HFA aerosol inhaler 2 puff inhalation Q6H PRNRF: 0 gabapentin 100 mg capsule 100 mg PO BEDTIME RF: 0 sertraline 100 mg tablet 100 mg PO DAILY RF: 0 ibuprofen 600 mg tablet 600 mg PO Q8H PRNRF: 0 tizanidine 2 mg tablet 2 mg PO BEDTIME PRN (Reason: muscle spasticity) Qty: 30 RF: 0 Stand Alone Forms: Work/School Release Print Language: English [facility] Past Medical History Medical History (Updated 05/14/21 @ 10:38 by Mariela Alicea DO) Cholecystectomy planned Epidural anesthesia-induced headache during labor and delivery Fatty liver Fibromyalgia GERD (gastroesophageal reflux disease) hemorrhage Scoliosis Spina bifida Vertigo Vitamin D deficiency Vocal cord polyp Surgical History (Updated 01/12/21 @ 09:55 by Ysabel Ramírez MD) H/O vaginal surgery History of vocal cord polypectomy Hx laparoscopic cholecystectomy Family History Family History Mother Lymphoma Diabetes Father HTN (hypertension) Social History Social History (Updated 05/14/21 @ 08:56 by Mariela Alicea DO) Alcohol intake: current Alcohol intake frequency: holidays/special occasions only Patient Tobacco Use Status: Never used Tobacco Second Hand Smoke Exposure: No Advance Directives: Yes Advance Directives Information Provided: No Advance Directives on File: No
[2021-05-14 09:02] VITALS: BP 110/70; PULSE 78; RESP 16; TEMP 36.9; O2SAT 98; BMI 39.1
[2021-05-14] MEDS: Ondansetron ODT 4 MG TAB.RAPDIS TRANSLINGU (09:12)
--- NOTE | 2021-05-14 09:45 | PC.NURSE ---
pt alert and oriented, vss. pt reports abdominal pain accompanied by nausea that has been going on for a few months. no c/o sob/dizziness/chest pain. no other symptoms reported
[2021-05-14 10:06] LABS: MANUAL DIFF FLAG NO
[2021-05-14 10:09] LABS: Basophils Percent Auto 0.5 % (0-2); Eosinophils Absolute Auto 0.2 X10*3/uL (0.0-0.4); Eosinophils Percent Auto 2.4 % (0-4); Hematocrit 40.9 % (37-47); Hemoglobin 13.6 g/dl (12.0-16.0); Imm Gran Abs Auto 0.03 X10*3/uL (0.00-0.03); Imm Gran Pct Auto 0.5 % (0.0-0.4); Lymphocytes Absolute Auto 2.8 X10*3/uL (1.2-4.9); Lymphocytes Percent Auto 42.3 % (20-40); Mean Corpuscular HGB Conc 33.3 g/dl (31.0-35.0); Mean Corpuscular Hemoglobin 26.7 pg (27.0-33.0); Mean Corpuscular Volume 80.4 fL (80-98); Mean Platelet Volume 10.5 fL (9.4-12.3); Monocytes Absolute Auto 0.8 X10*3/uL (0.1-1.2); Monocytes Percent Auto 11.4 % (2-11); Neutrophils Absolute Auto 2.8 X10*3/uL (2.0-8.3); Neutrophils Percent Auto 42.9 % (45-73); Platelet Count 294 X10*3/uL (160-400); Red Blood Count 5.09 X10*6/uL (4.20-5.50); Red Cell Distribution Width 13.2 % (11.0-16.0); White Blood Count 6.6 X10*3/uL (4.8-10.8)
[2021-05-14 10:09] LABS: Appearance Urine HAZY; Color Urine YELLOW; Glucose Urine UA NEG (NEG); Leukocyte Esterase Urine 3+ (NEG); Nitrite Urine NEG (NEG); UACC Culture Trigger YES; Urine Blood 2+ (NEG); Urine Ketones NEG (NEG); Urine Protein TRACE MG/DL (NEG-TRACE)
[2021-05-14 10:12] LABS: UPreg QC Valid YES; Urine Pregnancy NEGATIVE (NEGATIVE)
[2021-05-14 10:23] LABS: Bacteria Urine 2+ /LPF; Squamous Epithelial Cell Urine 2+ /LPF; WBC Urine 30-49 /HPF (0-4)
[2021-05-14 10:24] LABS: Alanine Aminotransferase 66 U/L (0-31); Albumin Level 3.9 g/dL (3.5-5.0); Alkaline Phosphatase 68 U/L (39-117); Anion Gap 10 (12-20); Aspartate Amino Transferase 34 U/L (5-31); Bilirubin Direct 0.2 mg/dL (0.0-0.5); Bilirubin Total 0.3 mg/dL (0.0-1.0); Blood Urea Nitrogen 11 mg/dL (9-16); Calcium 9.1 mg/dL (8.4-10.2); Carbon Dioxide 25 mmol/L (22-29); Chloride 106 mmol/L (96-108); Creatinine Clr Calc Pharmacy 105.2; Estimated Glomerular Filt Rate > 60; Glucose Random 89 mg/dL (60-115); Lipase 37 U/L (8-78); Potassium 3.9 mmol/L (3.3-5.1); Sodium 137 mmol/L (135-145); Total Protein 7.2 g/dL (6.5-8.0)
== END 2021-05-14 10:47 | disposition home or self-care (01) ==
PROVIDERS: Emergency Provider Emergency Medicine; PCP Internal Medicine
DX: N30.01 Acute cystitis with hematuria (principal); K76.0 Fatty (change of) liver, not elsewhere classified; R10.11 Right upper quadrant pain; Z79.899 Other long term (current) drug therapy
CPT/HCPCS: 36415; 76705; 80048; 80076; 81001; 81025; 83690; 83735; 85025; 87086; 87635; 99283; 99284

== ENCOUNTER 2021-07-27 09:30 | Outpatient (REF) | payer OTHER, SELFPAY ==
[2021-07-27 09:51] LABS: MANUAL DIFF FLAG NO
[2021-07-27 10:18] LABS: Basophils Percent Auto 0.3 % (0-2); Eosinophils Absolute Auto 0.2 X10*3/uL (0.0-0.4); Hemoglobin 12.7 g/dl (12.0-16.0); Imm Gran Abs Auto 0.03 X10*3/uL (0.00-0.03); Imm Gran Pct Auto 0.5 % (0.0-0.4); Lymphocytes Absolute Auto 2.4 X10*3/uL (1.2-4.9); Lymphocytes Percent Auto 37.6 % (20-40); Mean Corpuscular HGB Conc 32.6 g/dl (31.0-35.0); Mean Corpuscular Hemoglobin 26.6 pg (27.0-33.0); Mean Corpuscular Volume 81.6 fL (80.0-98.0); Mean Platelet Volume 10.5 fL (9.4-12.3); Monocytes Absolute Auto 0.5 X10*3/uL (0.1-1.2); Monocytes Percent Auto 8.4 % (2-11); Neutrophils Absolute Auto 3.2 x10*3/uL (2.0-8.3); Neutrophils Percent Auto 50.2 % (45-73); Platelet Count 314 X10*3/uL (160-400); Red Blood Count 4.78 X10*6/uL (4.20-5.50); Red Cell Distribution Width 14.4 % (11.0-16.0); White Blood Count 6.3 X10*3/uL (4.8-10.8)
[2021-07-27 10:45] LABS: Alanine Aminotransferase 89 U/L (0-31); Albumin Level 3.8 g/dL (3.5-5.0); Alkaline Phosphatase 78 U/L (39-117); Anion Gap 11 (12-20); Aspartate Amino Transferase 55 U/L (5-31); Bilirubin Total 0.5 mg/dL (0.0-1.0); Blood Urea Nitrogen 9 mg/dL (9-16); Calcium 9.3 mg/dL (8.4-10.2); Carbon Dioxide 27 mmol/L (22-29); Chloride 104 mmol/L (96-108); Cholesterol 171 mg/dL; Estimated Glomerular Filt Rate > 60; Glucose Random 120 mg/dL (60-115); HDL Cholesterol 63 mg/dL; LDL Cholesterol Calculated 92 mg/dl; Potassium 3.8 mmol/L (3.3-5.1); Sodium 138 mmol/L (135-145); Total Protein 7.3 g/dL (6.5-8.0); Triglycerides 83 mg/dL
[2021-07-27 11:08] LABS: Thyroid Stimulating Hormone 1.99 uIU/mL (0.32-4.0)
== END 2021-07-27 09:31 | disposition home or self-care (01) ==
LOC: HO.LAB 09:30
PROVIDERS: Absent Provider Internal Medicine; PCP Internal Medicine; Visit Provider Internal Medicine
DX: B96.81 Helicobacter pylori [H. pylori] as the cause of diseases classified elsewhere (principal); F33.41 Major depressive disorder, recurrent, in partial remission; H81.11 Benign paroxysmal vertigo, right ear; I10 Essential (primary) hypertension; K59.00 Constipation, unspecified; R74.01 Elevation of levels of liver transaminase levels
CPT/HCPCS: 36415; 80053; 80061; 84443; 85025

== ENCOUNTER 2021-08-30 17:25 | Outpatient (REF) | payer OTHER, SELFPAY ==
[2021-08-30 17:56] LABS: Prothrombin Time 11.1 SEC (9.9-13.0)
== END 2021-08-30 17:26 | disposition home or self-care (01) ==
LOC: HO.LAB 17:25
PROVIDERS: PCP Internal Medicine; Visit Provider Internal Medicine
DX: K76.0 Fatty (change of) liver, not elsewhere classified (principal); R79.89 Other specified abnormal findings of blood chemistry
CPT/HCPCS: 36415; 85610; 85730

== ENCOUNTER 2021-09-06 07:53 | Day surgery (SDC) | payer OTHER, SELFPAY ==
[2021-09-06] VITALS (7 sets, daily range): BP systolic 97–113; BP diastolic 43–71; PULSE 66–82; RESP 16; TEMP 36.5; O2SAT 98–100; BMI 39.6
--- NOTE | ~2021-09-06 | US_ITS ---
EXAMINATION: ULTRASOUND-GUIDED LIVER BIOPSY CLINICAL INFORMATION: Fatty liver. COMPARISON: None TECHNIQUE: Procedure and risks and benefits including bleeding and infection were discussed with the patient and informed consent was obtained. The right upper quadrant was prepped and draped in the usual sterile fashion. The skin and soft tissues were anesthetized with 1% lidocaine plain. Using ultrasound guidance and a coaxial system, access to the right lobe of the liver was obtained. Three 20-gauge core biopsies were obtained. There were no complication. Patient received Versed 1 mg and fentanyl 50 mcg intravenously during the procedure. Total sedation time was 20 minutes. FINDINGS: Liver echotexture is increased. No ascites, focal fluid collection or hematoma seen post biopsy. US/US biopsy liver IMPRESSION: Ultrasound-guided liver biopsy.
[2021-09-06 08:27] LABS: UPreg QC Valid YES; Urine Pregnancy NEGATIVE (NEGATIVE)
[2021-09-06 08:37] LABS: MANUAL DIFF FLAG NO
[2021-09-06 08:45] LABS: Basophils Percent Auto 0.3 % (0-2); Eosinophils Absolute Auto 0.2 X10*3/uL (0.0-0.4); Eosinophils Percent Auto 2.4 % (0-4); Hematocrit 36.8 % (37.0-47.0); Hemoglobin 12.1 g/dl (12.0-16.0); Imm Gran Abs Auto 0.02 X10*3/uL (0.00-0.03); Imm Gran Pct Auto 0.3 % (0.0-0.4); Lymphocytes Absolute Auto 2.3 X10*3/uL (1.2-4.9); Mean Corpuscular HGB Conc 32.9 g/dl (31.0-35.0); Mean Corpuscular Hemoglobin 26.6 pg (27.0-33.0); Mean Corpuscular Volume 80.9 fL (80.0-98.0); Monocytes Absolute Auto 0.6 X10*3/uL (0.1-1.2); Neutrophils Absolute Auto 3.3 x10*3/uL (2.0-8.3); Platelet Count 283 X10*3/uL (160-400); Red Blood Count 4.55 X10*6/uL (4.20-5.50); Red Cell Distribution Width 14.5 % (11.0-16.0); White Blood Count 6.3 X10*3/uL (4.8-10.8)
[2021-09-06] MEDS: Lidocaine HCl 1 % MPF 5 ML VIAL 6 ML SUBCUT (09:52)
--- NOTE | 2021-09-06 09:52 | HO.RADPN ---
RADIOLOGY Narrative Narrative: right lobe liver biopsy using coaxial system. 3 20g core biopsies obtained. no complication.
[2021-09-06] MEDS: oxyCODONE HCl Immed Release 5 MG TABLET PO (10:20)
== END 2021-09-06 12:00 | disposition home or self-care (01) ==
PROVIDERS: PCP Internal Medicine; Visit Provider Radiology Diagnostic Radiology
DX: R79.89 Other specified abnormal findings of blood chemistry (principal); K76.0 Fatty (change of) liver, not elsewhere classified; K75.81 Nonalcoholic steatohepatitis (NASH); K22.70 Barrett's esophagus without dysplasia; K21.9 Gastro-esophageal reflux disease without esophagitis; M79.7 Fibromyalgia; J45.909 Unspecified asthma, uncomplicated; Z79.899 Other long term (current) drug therapy
CPT/HCPCS: 36415; 47000; 76942; 81025; 85025; 88307; 88313; 99152; 99153; J2250; J3010

== ENCOUNTER 2021-10-17 10:45 | Outpatient (REF) | payer OTHER, SELFPAY ==
[2021-10-17 11:56] LABS: Estimated Average Glucose 108 mg/dL; Hemoglobin A1c % 5.4 %
[2021-10-17 12:04] LABS: Alanine Aminotransferase 45 U/L (0-31); Albumin Level 3.9 g/dL (3.5-5.0); Alkaline Phosphatase 68 U/L (39-117); Anion Gap 11 (12-20); Aspartate Amino Transferase 18 U/L (5-31); Bilirubin Total 0.3 mg/dL (0.0-1.0); Blood Urea Nitrogen 12 mg/dL (9-16); Calcium 9.4 mg/dL (8.4-10.2); Carbon Dioxide 30 mmol/L (22-29); Chloride 103 mmol/L (96-108); Estimated Glomerular Filt Rate > 60; Glucose Random 82 mg/dL (60-115); Potassium 3.4 mmol/L (3.3-5.1); Sodium 141 mmol/L (135-145); Total Protein 7.4 g/dL (6.5-8.0)
== END 2021-10-17 10:46 | disposition home or self-care (01) ==
LOC: HO.LAB 10:45
PROVIDERS: PCP Internal Medicine; Visit Provider Internal Medicine
DX: B96.81 Helicobacter pylori [H. pylori] as the cause of diseases classified elsewhere (principal); I10 Essential (primary) hypertension; K22.70 Barrett's esophagus without dysplasia; R73.01 Impaired fasting glucose; R74.01 Elevation of levels of liver transaminase levels
CPT/HCPCS: 36415; 80053; 83036

== ENCOUNTER 2021-12-27 12:54 | Outpatient (REF) | payer OTHER, SELFPAY ==
--- NOTE | ~2021-12-27 | MM_ITS ---
EXAMINATION: MM DIAGNOSTIC DIGITAL BREAST TOMOSYNTHESIS, BILATERAL US DIAGNOSTIC ULTRASOUND BREAST, RIGHT CLINICAL INFORMATION: 36-year-old with right sized palpable concern inferior medial right breast for approximately 2 months. No prior breast imaging. TC score 7%. COMPARISON: None (current study represents initial baseline exam). TECHNIQUE: Digital breast tomosynthesis is performed in both the craniocaudal and mediolateral oblique views along with computer-aided detection (CAD). Synthesized 2D images are generated from the tomosynthesis. Additional bilateral CC and additional bilateral MLO views are provided. Ultrasound right breast is targeted to the area of clinical concern. Patient is able to point to the area of concern at time of imaging. Grayscale imaging and color Doppler are performed without and with harmonics. FINDINGS: There are scattered areas of fibroglandular density (ACR BI-RADS breast composition Category b). There are no significant masses, abnormal calcifications, or other abnormalities. The axilla and skin contours are unremarkable. No skin thickening or coarsening of the Willis's ligaments. No mammographic correlate for patient's symptoms. Ultrasound right breast demonstrates no cystic or solid mass, architectural abnormality, or focal duct ectasia. No skin thickening or edema tracking in soft tissue planes. Results are discussed with the patient at time of visit. Patient should be managed based on the clinical impression. If clinically indicated, further evaluation may be considered with surgical consult. Decision to proceed with biopsy should be based on clinical grounds and degree of clinical concern. MM/MM tomosynthesis diagnostic BI IMPRESSION: -No mammographic evidence of malignancy. -Unremarkable targeted right breast ultrasound. ASSESSMENT: BI-RADS 1: Negative RECOMMENDATION: 1. Patient should be managed based on the clinical impression. If clinically indicated, further evaluation may be considered with surgical consult. Decision to proceed with biopsy should be based on clinical grounds and degree of clinical concern. 2. Otherwise, routine annual screening mammography, beginning age 40, or earlier as clinical risk factors warrant. This patient's information was entered into a reminder system with a target due date for their next mammogram.
[2021-12-27 14:31] LABS: MANUAL DIFF FLAG NO
[2021-12-27 14:57] LABS: Basophils Percent Auto 0.5 % (0-2); Eosinophils Absolute Auto 0.1 X10*3/uL (0.0-0.4); Eosinophils Percent Auto 1.7 % (0-4); Hematocrit 39.9 % (37.0-47.0); Hemoglobin 13.1 g/dl (12.0-16.0); Imm Gran Abs Auto 0.02 X10*3/uL (0.00-0.03); Imm Gran Pct Auto 0.3 % (0.0-0.4); Lymphocytes Absolute Auto 2.7 X10*3/uL (1.2-4.9); Lymphocytes Percent Auto 42.7 % (20-40); Mean Corpuscular HGB Conc 32.8 g/dl (31.0-35.0); Mean Corpuscular Volume 82.3 fL (80.0-98.0); Mean Platelet Volume 10.7 fL (9.4-12.3); Monocytes Absolute Auto 0.6 X10*3/uL (0.1-1.2); Monocytes Percent Auto 8.6 % (2-11); Neutrophils Percent Auto 46.2 % (45-73); Platelet Count 314 X10*3/uL (160-400); Red Blood Count 4.85 X10*6/uL (4.20-5.50); White Blood Count 6.4 X10*3/uL (4.8-10.8)
[2021-12-27 15:16] LABS: Alanine Aminotransferase 140 U/L (0-31); Albumin Level 4.1 g/dL (3.5-5.0); Alkaline Phosphatase 75 U/L (39-117); Aspartate Amino Transferase 87 U/L (5-31); Bilirubin Direct 0.2 mg/dL (0.0-0.5); Bilirubin Total 0.6 mg/dL (0.0-1.0); Total Protein 7.8 g/dL (6.5-8.0)
[2021-12-27 15:20] LABS: Prothrombin Time 11.6 SEC (9.9-13.0)
[2021-12-27 15:23] LABS: Partial Thromboplastin Time 32.2 SEC (24.1-38.0)
== END 2021-12-27 12:55 | disposition home or self-care (01) ==
LOC: HO.MAMMO 12:54
PROVIDERS: Absent Provider Internal Medicine; PCP Internal Medicine; Visit Provider Internal Medicine
DX: N63.14 Unspecified lump in the right breast, lower inner quadrant (principal); R79.89 Other specified abnormal findings of blood chemistry; K76.0 Fatty (change of) liver, not elsewhere classified
CPT/HCPCS: 36415; 76642; 77062; 77066; 80076; 85025; 85610; 85730

== ENCOUNTER → 2022-01-19 10:50 | Outpatient (BNVA) | payer OTHER, SELFPAY | PROVIDERS: PCP Internal Medicine; Visit Provider Surgery | DX: N63.14 Unspecified lump in the right breast, lower inner quadrant (principal) | CPT/HCPCS: 99202 ==

== ENCOUNTER → 2022-02-21 10:55 | Outpatient (BNVA) | payer OTHER, SELFPAY | PROVIDERS: PCP Internal Medicine; Referring Provider Internal Medicine; Visit Provider Surgery | DX: N60.11 Diffuse cystic mastopathy of right breast (principal) | CPT/HCPCS: 99212 ==

== ENCOUNTER 2022-04-14 11:46 | Outpatient (REF) | payer OTHER, SELFPAY ==
[2022-04-14 12:17] LABS: MANUAL DIFF FLAG NO
[2022-04-14 12:44] LABS: Basophils Percent Auto 0.5 % (0-2); Eosinophils Absolute Auto 0.1 X10*3/uL (0.0-0.4); Eosinophils Percent Auto 1.7 % (0-4); Hemoglobin 13.3 g/dl (12.0-16.0); Lymphocytes Absolute Auto 2.9 X10*3/uL (1.2-4.9); Lymphocytes Percent Auto 49.3 % (20-40); Mean Corpuscular HGB Conc 33.3 g/dl (31.0-35.0); Mean Corpuscular Volume 81.1 fL (80.0-98.0); Mean Platelet Volume 10.6 fL (9.4-12.3); Monocytes Absolute Auto 0.5 X10*3/uL (0.1-1.2); Monocytes Percent Auto 8.4 % (2-11); Neutrophils Absolute Auto 2.4 x10*3/uL (2.0-8.3); Neutrophils Percent Auto 40.1 % (45-73); Platelet Count 329 X10*3/uL (160-400); Red Blood Count 4.93 X10*6/uL (4.20-5.50); Red Cell Distribution Width 13.5 % (11.0-16.0); White Blood Count 5.9 X10*3/uL (4.8-10.8)
[2022-04-14 12:52] LABS: Estimated Average Glucose 100 mg/dL; Hemoglobin A1c % 5.1 %
[2022-04-14 13:06] LABS: Alanine Aminotransferase 77 U/L (0-31); Alanine Aminotransferase 78 U/L (0-31); Albumin Level 4.2 g/dL (3.5-5.0); Alkaline Phosphatase 71 U/L (39-117); Alkaline Phosphatase 72 U/L (39-117); Anion Gap 15 (12-20); Aspartate Amino Transferase 49 U/L (5-31); Aspartate Amino Transferase 51 U/L (5-31); Bilirubin Direct 0.3 mg/dL (0.0-0.5); Bilirubin Total 0.8 mg/dL (0.0-1.0); Blood Urea Nitrogen 6 mg/dL (9-16); Calcium 9.6 mg/dL (8.4-10.2); Carbon Dioxide 26 mmol/L (22-29); Chloride 101 mmol/L (96-108); Estimated Glomerular Filt Rate > 60; Glucose Random 92 mg/dL (60-115); Potassium 4.2 mmol/L (3.3-5.1); Sodium 138 mmol/L (135-145); Total Protein 7.9 g/dL (6.5-8.0)
== END 2022-04-14 11:47 | disposition home or self-care (01) ==
LOC: HO.LAB 11:46
PROVIDERS: Absent Provider Internal Medicine; PCP Internal Medicine; Visit Provider Internal Medicine
DX: Z00.00 Encounter for general adult medical examination without abnormal findings (principal); I10 Essential (primary) hypertension; M54.50 Low back pain, unspecified; N62 Hypertrophy of breast; R74.01 Elevation of levels of liver transaminase levels; K76.0 Fatty (change of) liver, not elsewhere classified; R79.89 Other specified abnormal findings of blood chemistry
CPT/HCPCS: 36415; 80053; 80076; 82248; 83036; 85025

== ENCOUNTER 2022-06-27 16:40 | Outpatient (REF) | payer OTHER, SELFPAY ==
[2022-06-27 17:47] LABS: Alanine Aminotransferase 33 U/L (0-31); Albumin Level 4.2 g/dL (3.5-5.0); Alkaline Phosphatase 66 U/L (39-117); Aspartate Amino Transferase 22 U/L (5-31); Bilirubin Direct 0.2 mg/dL (0.0-0.5); Bilirubin Total 0.4 mg/dL (0.0-1.0); Total Protein 7.5 g/dL (6.5-8.0)
== END 2022-06-27 16:41 | disposition home or self-care (01) ==
LOC: HO.LAB 16:40
PROVIDERS: PCP Internal Medicine; Visit Provider Internal Medicine
DX: K76.0 Fatty (change of) liver, not elsewhere classified (principal); R79.89 Other specified abnormal findings of blood chemistry
CPT/HCPCS: 36415; 80076

== ENCOUNTER 2023-04-17 14:54 | Outpatient (REF) | payer OTHER, SELFPAY ==
[2023-04-17 15:03] LABS: MANUAL DIFF FLAG NO
[2023-04-17 15:33] LABS: Basophils Percent Auto 0.6 % (0-2); Eosinophils Absolute Auto 0.1 X10*3/uL (0.0-0.4); Eosinophils Percent Auto 1.9 % (0-4); Hematocrit 40.3 % (37.0-47.0); Hemoglobin 13.2 g/dl (12.0-16.0); Imm Gran Abs Auto 0.02 X10*3/uL (0.00-0.03); Imm Gran Pct Auto 0.3 % (0.0-0.4); Lymphocytes Absolute Auto 2.5 X10*3/uL (1.2-4.9); Lymphocytes Percent Auto 40.2 % (20-40); Mean Corpuscular HGB Conc 32.8 g/dl (31.0-35.0); Mean Corpuscular Hemoglobin 26.7 pg (27.0-33.0); Mean Corpuscular Volume 81.6 fL (80.0-98.0); Mean Platelet Volume 10.5 fL (9.4-12.3); Monocytes Absolute Auto 0.5 X10*3/uL (0.1-1.2); Monocytes Percent Auto 7.8 % (2-11); Neutrophils Absolute Auto 3.1 x10*3/uL (2.0-8.3); Neutrophils Percent Auto 49.2 % (45-73); Platelet Count 339 X10*3/uL (160-400); Red Blood Count 4.94 X10*6/uL (4.20-5.50); Red Cell Distribution Width 14.3 % (11.0-16.0); White Blood Count 6.3 X10*3/uL (4.8-10.8)
[2023-04-17 16:55] LABS: Erythrocyte Sedimentation Rate 11 MM/HR (0-20)
[2023-04-17 17:10] LABS: Rheumatoid Factor < 13.0 IU/mL (<15.0)
[2023-04-17 17:14] LABS: Alanine Aminotransferase 48 U/L (0-31); Albumin Level 4.2 g/dL (3.5-5.0); Alkaline Phosphatase 64 U/L (39-117); Anion Gap 12 (12-20); Aspartate Amino Transferase 33 U/L (5-31); Bilirubin Total 0.5 mg/dL (0.0-1.0); Blood Urea Nitrogen 6 mg/dL (9-16); Calcium 9.9 mg/dL (8.4-10.2); Carbon Dioxide 27 mmol/L (22-29); Chloride 103 mmol/L (96-108); Cholesterol 175 mg/dL (<200); Estimated Glomerular Filt Rate > 60; Glucose Random 87 mg/dL (60-115); HDL Cholesterol 77 mg/dL (>40); LDL Cholesterol Calculated 84 mg/dL (<100); Potassium 3.9 mmol/L (3.3-5.1); Sodium 138 mmol/L (135-145); Total Protein 7.9 g/dL (6.5-8.0); Triglycerides 71 mg/dL (<150)
[2023-04-17 17:22] LABS: Thyroid Stimulating Hormone 2.72 uIU/mL (0.32-4.0)
[2023-04-18 14:13] LABS: Cyclic Citrullinated Peptide <16 UNITS
== END 2023-04-17 14:55 | disposition home or self-care (01) ==
LOC: HO.LAB 14:54
PROVIDERS: PCP Internal Medicine; Visit Provider Internal Medicine
DX: H81.11 Benign paroxysmal vertigo, right ear (principal); R74.01 Elevation of levels of liver transaminase levels; M20.10 Hallux valgus (acquired), unspecified foot
CPT/HCPCS: 36415; 80053; 80061; 84443; 85025; 85652; 86200; 86431

== ENCOUNTER 2023-06-07 13:51 | Outpatient (REF) | payer OTHER, SELFPAY ==
[2023-06-07 14:59] LABS: Alanine Aminotransferase 28 U/L (0-31); Alkaline Phosphatase 55 U/L (39-117); Aspartate Amino Transferase 24 U/L (5-31); Bilirubin Direct < 0.2 mg/dL (0.0-0.5); Bilirubin Total 0.2 mg/dL (0.0-1.0); Total Protein 7.5 g/dL (6.5-8.0)
== END 2023-06-07 13:52 | disposition home or self-care (01) ==
LOC: HO.LAB 13:51
PROVIDERS: PCP Internal Medicine; Visit Provider Internal Medicine
DX: K76.0 Fatty (change of) liver, not elsewhere classified (principal); R79.89 Other specified abnormal findings of blood chemistry
CPT/HCPCS: 36415; 80076

== ENCOUNTER 2023-06-19 16:47 | Outpatient (REF) | payer OTHER, SELFPAY ==
[2023-06-22 16:13] LABS: Anti Nuclear Antibody Screen NEGATIVE (NEGATIVE)
== END 2023-06-19 16:48 | disposition home or self-care (01) ==
LOC: HO.LAB 16:47
PROVIDERS: PCP Internal Medicine; Visit Provider Internal Medicine
DX: H81.399 Other peripheral vertigo, unspecified ear (principal); K22.70 Barrett's esophagus without dysplasia; K44.9 Diaphragmatic hernia without obstruction or gangrene; K59.00 Constipation, unspecified; R10.13 Epigastric pain; R23.8 Other skin changes
CPT/HCPCS: 36415; 86038

== ENCOUNTER 2023-11-23 09:17 | Day surgery (SDC) | payer OTHER, SELFPAY ==
[2023-11-21 15:15] VITALS: BMI 36.9
--- NOTE | 2023-11-21 15:33 | P.CONAN_ITS ---
Documented by User: Tere Hastings NP 11/21/23 15:34 HPI - Anesthesia Eval Consult details Narrative: 38yo F for Upper Endoscopy Hx vocal cord polypectomy PMFSH Active Problems Active Problems: All Active Problems (Updated 11/21/23 @ 15:14 by Cici Sher RN) Fibrocystic changes of right breast (Acute) Breast mass, right (Acute) Low back pain (Acute) Hx laparoscopic cholecystectomy (Acute) History of vocal cord polypectomy (Acute) Past Medical History Medical History (Updated 11/21/23 @ 15:15 by Cici Sher RN) HTN (hypertension) Asthma Fatty liver hemorrhage Epidural anesthesia-induced headache during labor and delivery Spina bifida Scoliosis GERD (gastroesophageal reflux disease) Vitamin D deficiency Vocal cord polyp Cholecystectomy planned Fibromyalgia Vertigo Family History Family History Mother Lymphoma Diabetes Father HTN (hypertension) Maternal Uncle Lymphoma Family history of problems with anesthesia: No Surgical History Surgical History (Updated 11/21/23 @ 15:14 by Cici Sher RN) History of liver biopsy History of esophagogastroduodenoscopy (EGD) Hx laparoscopic cholecystectomy History of vocal cord polypectomy H/O vaginal surgery History of Problems with Anesthesia: No Social History Social History Alcohol intake: current Alcohol intake frequency: holidays/special occasions only Patient Tobacco Use Status: Never used Tobacco Second Hand Smoke Exposure: No Advance Directives: No Advance Directives Information Provided: Yes Meds Allergies Allergy/AdvReac Type Severity Reaction Status Date / Time No Known Allergies Allergy Verified 02/21/22 11:04 Home Medications Medication Instructions Recorded Confirmed Last Taken Type albuterol sulfate 90 mcg/actuation 2 puff inhalation Q6H PRN 11/26/20 11/21/23 Unknown History aerosol inhaler Shortness Of Breath cholecalciferol (vitamin D3) 25 25 mcg PO DAILY 11/26/20 11/21/23 Unknown History mcg (1,000 unit) capsule lisinopril 10 mg tablet 10 mg PO DAILY 11/26/20 11/21/23 Unknown History omeprazole 20 mg capsule,delayed 20 mg PO DAILY 11/26/20 11/21/23 Unknown History release meclizine 12.5 mg tablet 12.5 mg PO TID PRN vertigo 11/21/23 11/21/23 Unknown History trazodone 50 mg tablet 50 - 100 mg PO BEDTIME PRN Insomnia 11/21/23 11/21/23 Unknown History Exam Height,Weight and Vital Signs: Height 5 ft 2 in Weight 91.626 kg Assessment and Plan Assessment Anesthesia Assessment: Chart Reviewed Final Anesthetic Review Family History of Problems with Anesthesia: No History of Problems with Anesthesia: No Documented by User: Ravi Stahl MD 11/23/23 09:55 [facility] Past Medical History Medical History (Updated 11/21/23 @ 15:15 by Cici Sher RN) HTN (hypertension) Asthma Fatty liver hemorrhage Epidural anesthesia-induced headache during labor and delivery Spina bifida Scoliosis GERD (gastroesophageal reflux disease) Vitamin D deficiency Vocal cord polyp Cholecystectomy planned Fibromyalgia Vertigo Family History Family History Mother Lymphoma Diabetes Father HTN (hypertension) Maternal Uncle Lymphoma Surgical History Surgical History (Updated 11/21/23 @ 15:14 by Cici Sher RN) History of liver biopsy History of esophagogastroduodenoscopy (EGD) Hx laparoscopic cholecystectomy History of vocal cord polypectomy H/O vaginal surgery Social History Social History Alcohol intake: current Alcohol intake frequency: holidays/special occasions only Patient Tobacco Use Status: Never used Tobacco Second Hand Smoke Exposure: No Advance Directives: No Advance Directives Information Provided: Yes Meds Allergies Allergy/AdvReac Type Severity Reaction Status Date / Time No Known Allergies Allergy Verified 02/21/22 11:04 Home Medications Medication Instructions Recorded Confirmed Last Taken Type albuterol sulfate 90 mcg/actuation 2 puff inhalation Q6H PRN 11/26/20 11/21/23 Unknown History aerosol inhaler Shortness Of Breath cholecalciferol (vitamin D3) 25 25 mcg PO DAILY 11/26/20 11/21/23 Unknown History mcg (1,000 unit) capsule lisinopril 10 mg tablet 10 mg PO DAILY 11/26/20 11/21/23 Unknown History omeprazole 20 mg capsule,delayed 20 mg PO DAILY 11/26/20 11/21/23 Unknown History release meclizine 12.5 mg tablet 12.5 mg PO TID PRN vertigo 11/21/23 11/21/23 Unknown History trazodone 50 mg tablet 50 - 100 mg PO BEDTIME PRN Insomnia 11/21/23 11/21/23 Unknown History Exam Airway Mallampati Class: II TM Dist: >3cm Loose/Missing/Broken Teeth: Yes (8 chipped) Heart: rrr Lungs: cta b/l Assessment and Plan Assessment Anesthesia Assessment: Anesthesia Plan Discussed and Chart Reviewed Final Anesthetic Review NPO: Yes ASA Class: II Final Preanesthetic Review: No Changes in Pt Med Stat, Meds/Allgs Chart Reviewed, Consent Obtained/Reviewed and Anes Risks/Benef Reviewed Patient Risk: Intermediate Procedure Risk: Intermediate Anesthetic Plan Anesthetic Plan: MAC: Disposition: Standard PACU
[2023-11-23 09:59] VITALS: BMI 36.6
[2023-11-23 10:08] LABS: UPreg QC Valid YES; Urine Pregnancy NEGATIVE (NEGATIVE)
[2023-11-23] MEDS: Lactated Ringers 1,000 ML 100 ML IVCONT (10:08)
[2023-11-23 10:21] VITALS: BP 124/87; PULSE 101; RESP 18; TEMP 36.8; O2SAT 98
[2023-11-23 11:16] VITALS: BP 103/58; PULSE 81; RESP 18; TEMP 36.1; O2SAT 100
--- NOTE | 2023-11-23 11:21 | P.BOP_ITS ---
Brief Operative Note Date of Service: 11/23/23 Pre-op diagnosis: GERD, Cali's Post-op diagnosis: other (Same, hiatal hernia) Procedure: EGD with biopsies Surgeon: Demian Santos MD Anesthesia: MAC Was an Claims Investigator used for this Procedure?: No Estimated blood loss (mL): 2.0 Pathology: other (A. Gastric antrum B. EG Junction at 35cm) Condition: stable Disposition: PACU
[2023-11-23 11:31] VITALS: BP 118/60; PULSE 88; RESP 16; TEMP 36.4; O2SAT 100
--- NOTE | 2023-11-23 11:59 | OP_ITS ---
DATE OF SERVICE: 11/23/2023 SURGEON: Demian Santos MD INDICATIONS: The patient presents for evaluation of gastroesophageal reflux, Cali esophagus, and abdominal discomfort. Full consent has been obtained from her for this, including risks of bleeding and perforation. PREOPERATIVE DIAGNOSIS: POSTOPERATIVE DIAGNOSIS: PROCEDURE PERFORMED: Procedure esophagogastroduodenoscopy with biopsies. ESTIMATED BLOOD LOSS: COMPLICATIONS: ANESTHESIA: Monitored anesthesia care. ASSISTANTS: SPECIMENS: PREOPERATIVE DIAGNOSES: Gastroesophageal reflux, history of Cali esophagus, abdominal discomfort. POSTOPERATIVE DIAGNOSES: Gastroesophageal reflux, history of Cali esophagus, abdominal discomfort, hiatal hernia, rule out Helicobacter pylori. DESCRIPTION OF PROCEDURE: The patient was placed in the left lateral decubitus position. The Olympus video gastroscope was passed in the posterior oropharynx and upper esophagus under direct vision. The scope was passed slowly into the distal esophagus. The gastroesophageal junction appeared at 35 cm. There was some slight irregularity consistent with reflux and less than 1 cm areas of possible Cali mucosa. There was no evidence of any lesions nor mass. There was no esophagitis. The scope entered the stomach. There was a small hiatal hernia. The scope was advanced to the pylorus, and the duodenum was cannulated to the descending portion. The duodenum including the bulb appeared normal without mass or ulceration. The scope was withdrawn back to the stomach. The gastric antrum and body appeared normal and had some minimal erythema and edema in the pre-pyloric antrum. There was good peristalsis. There was no ulceration or mass. Biopsies were obtained from the antrum. The scope was retroflexed visualizing the proximal stomach carefully, which appeared normal, without any sign of mass or ulceration. The scope was straightened and withdrawn back to the esophagus. Biopsies were obtained at the EG junction at 35 cm. Proximal to this, the esophageal mucosa appeared normal. The scope was withdrawn from the patient. She tolerated the procedure well and was returned to the recovery area in stable condition. IMPRESSION: 1. Hiatal hernia, gastroesophageal reflux, history of Cali esophagus. 2. Rule out Helicobacter pylori. PLAN: The results of the biopsies will be checked. She will continue her daily 40 mg omeprazole for symptomatic relief of reflux. She has had H pylori in the past, and if this is still present and her abdominal discomfort persists, I would then recommend we eventually treat that. I did advise her to see me in the fall for a followup visit in regard to this as well as her underlying history of fatty liver. She was advised not to use any aspirin or NSAIDs for least 1 week. MD HARPREET Oviedo/COLBY / [phone]
== END 2023-11-23 12:00 | disposition home or self-care (01) ==
PROVIDERS: Nurse Practitioner; PCP Internal Medicine; Visit Provider Internal Medicine
PROC: 0DJ08ZZ Inspection of Upper Intestinal Tract, Via Natural or Artificial Opening Endoscopic (ICD-10-PCS; CPT 43235; principal; 2023-11-23 11:30)
DX: K21.9 Gastro-esophageal reflux disease without esophagitis (principal); K22.70 Barrett's esophagus without dysplasia; K44.9 Diaphragmatic hernia without obstruction or gangrene; K58.1 Irritable bowel syndrome with constipation; K76.0 Fatty (change of) liver, not elsewhere classified; I10 Essential (primary) hypertension; J45.909 Unspecified asthma, uncomplicated; Z79.899 Other long term (current) drug therapy; Z98.890 Other specified postprocedural states; Z90.49 Acquired absence of other specified parts of digestive tract
CPT/HCPCS: 43239; 81025; 88305; 88313; 88342; J2704

== ENCOUNTER 2023-12-13 07:10 | Emergency (ER) | payer OTHER, SELFPAY ==
--- NOTE | ~2023-12-13 | XR_ITS ---
EXAMINATION: XR CHEST CLINICAL INFORMATION: Cough and chest pain COMPARISON: 02/14/2016 TECHNIQUE: 2 views of the chest were obtained. FINDINGS: No significant abnormality is noted involving the heart, lungs, mediastinum, bony thorax or soft tissues. Surgical clips are present in the gallbladder fossa. XR/XR chest 2V IMPRESSION: Unremarkable examination.
[2023-12-13 07:16] VITALS: BP 121/86; PULSE 89; RESP 20; TEMP 37.2; O2SAT 100; BMI 37.4
--- NOTE | 2023-12-13 07:45 | ED.BACK ---
HPI - Back Pain/Injury General Chief Complaint: Back Pain/Injury Stated Complaint: upper back pain Time Seen by Provider: 12/13/23 07:29 Source: patient Mode of arrival: ambulatory Limitations: no limitations History of Present Illness HPI Narrative: 38 yo female with PMH of GERD, HTN, fibromyalgia, back pain, asthma here with c/o bilateral posterior rib pain denies trauma but has been coughing recently after diagnosis of flu illness 1 week ago. She is not on OCPs no travel, has copper IUD. Hurts to move cough and take deep breaths. MD elicited complaint: back pain Pertinent past history: prior back pain Onset (ago): day(s) (1) Timing: constant Severity: moderate Similar Symptoms Previously: Yes Quality: aching, spasming and throbbing Location: right upper back and left upper back Radiation: none Exacerbating factors: movement, deep breaths, coughing/sneezing and lifting Relieving factors: none Context: other (recent URI) Associated symptoms: denies other symptoms Treatments prior to arrival: acetaminophen Work related injury: No Related Data Home Medications ?Medication ?Instructions ?Recorded ?Confirmed albuterol sulfate 90 mcg/actuation 2 puff inhalation Q6H PRN 11/26/20 11/21/23 aerosol inhaler Shortness Of Breath cholecalciferol (vitamin D3) 25 25 mcg PO DAILY 11/26/20 11/21/23 mcg (1,000 unit) capsule lisinopril 10 mg tablet 10 mg PO DAILY 11/26/20 11/21/23 omeprazole 20 mg capsule,delayed 20 mg PO DAILY 11/26/20 11/21/23 release meclizine 12.5 mg tablet 12.5 mg PO TID PRN vertigo 11/21/23 11/21/23 trazodone 50 mg tablet 50 - 100 mg PO BEDTIME PRN Insomnia 11/21/23 11/21/23 Previous Rx's ?Medication ?Instructions ?Recorded tizanidine 2 mg tablet 2 mg PO BEDTIME PRN muscle 11/26/20 spasticity #30 tabs cyclobenzaprine 10 mg tablet 10 mg PO TID PRN muscle spasm #20 12/13/23 tabs Allergies Allergy/AdvReac Type Severity Reaction Status Date / Time No Known Allergies Allergy Verified 12/13/23 07:18 Review of Systems Review of Systems: Constitutional : No Weight loss, No Fever, No Chills, ENT/Mouth : No Hearing loss, No Ear Pain, No Nasal Congestion, No Sinus Pain, No Hoarseness, No sore throat, No Rhinorrhea, No Swallowing Difficulty Cardiovascular : No Chest Pain, No SOB Respiratory : No Cough, No Dyspnea Gastrointestinal : No Nausea, No Vomiting, No Diarrhea, No abdominal Pain, No Hematochezia, No Melena Genitourinary : No Dysuria, No Urinary Frequency, No Hematuria, No Urinary Incontinence, Musculoskeletal : positive back pain Skin : No Skin Lesions, No rash Neuro : No Weakness, No Numbness, No Paresthesias, no loss of bowel or bladder incontinence, no saddle anesthesia all other systems reviewed and are negative PMFSH Past Medical History Attestation statement: The following information was validated with the patient. Source: old records reviewed Medical History HTN (hypertension) Asthma Fatty liver hemorrhage Epidural anesthesia-induced headache during labor and delivery Spina bifida Scoliosis GERD (gastroesophageal reflux disease) Vitamin D deficiency Vocal cord polyp Cholecystectomy planned Fibromyalgia Vertigo Surgical History History of liver biopsy History of esophagogastroduodenoscopy (EGD) Hx laparoscopic cholecystectomy History of vocal cord polypectomy H/O vaginal surgery Family History Family History Mother Lymphoma Diabetes Father HTN (hypertension) Maternal Uncle Lymphoma Social History Social History Alcohol intake: current Alcohol intake frequency: holidays/special occasions only Patient Tobacco Use Status: Never used Tobacco Second Hand Smoke Exposure: No Advance Directives: No Advance Directives Information Provided: Yes Physical Exam Vital Signs: Vital Signs: Last Vital Signs Temp 98.4 F 12/13/23 09:38 Pulse 76 12/13/23 09:38 Resp 18 12/13/23 09:38 BP 108/58 L 12/13/23 09:38 Pulse Ox 99 12/13/23 09:38 O2 Del Method Room Air 12/13/23 09:38 BMI result Body Mass Index 37.4 Appearance: Alert. Oriented X3. No acute distress. Eyes: Pupils equal, round and reactive to light. ENT: Pharynx normal. Neck: Normal inspection. Neck supple. CVS: Normal heart rate and rhythm. Pulses normal. Respiratory: No respiratory distress. Breath sounds normal. Abdomen: Soft and nontender. Back: ttp along bilateral posterior ribs reproduces pain - movement taking deep breaths Skin: Skin warm and dry. Normal skin color. Normal skin turgor. Extremities: No lower extremity edema. Neuro: Oriented X 3. No motor deficit. No sensory deficit. Medical Decision Making Medical Decision Making MDM Narrative: 38 yo female with PMH of GERD, HTN, fibromyalgia, back pain, asthma here with c/o atraumatic back pain in setting of recent flu dx she is PERC Negative, pain is reproduceable at this time will obtain xrays to rule out rib fracture, mass, pneumonia and if negative treat as MSK strain. Differential Diagnosis Differential Diagnoses: The differential diagnosis associated with the presentation includes strain, sprain, rib contusion PERC negative doubt VTE pneumonia Admission/Observation Consideration of admission/observation: Escalation of care including admission/observation considered VS and xray normal Independent Interpretation I performed an independent interpretation of an: Plain X-Ray (normal ) Radiology Impression Discussion of test interpretation with radiology: I have reviewed the radiologist's reading. External Record Review External record reviewed: Office record Prescription Management I considered prescription management with: Pain Medication and Other Discharge Plan Discharge Clinical Impression: Strain of thoracic region Patient Disposition: Home, Self-Care Instructions: Muscle Strain (ED), Back Pain (ED) Additional Instructions: xray is normal at this time will start on muscle relaxers return for worsening pain, increased difficulty breathing xray is normal Prescriptions: New cyclobenzaprine 10 mg tablet 10 mg PO TID PRN (Reason: muscle spasm) Qty: 20 0RF No Action trazodone 50 mg tablet 50 - 100 mg PO BEDTIME PRN (Reason: Insomnia) meclizine 12.5 mg tablet 12.5 mg PO TID PRN (Reason: vertigo) lisinopril 10 mg tablet 10 mg PO DAILY cholecalciferol (vitamin D3) 25 mcg (1,000 unit) capsule 25 mcg PO DAILY omeprazole 20 mg capsule,delayed release(DR/EC) 20 mg PO DAILY albuterol sulfate 90 mcg/actuation HFA aerosol inhaler 2 puff inhalation Q6H PRN (Reason: Shortness Of Breath) tizanidine 2 mg tablet 2 mg PO BEDTIME PRN (Reason: muscle spasticity) Qty: 30 0RF Stand Alone Forms: Work/School Release Print Language: Romanian
[2023-12-13 09:38] VITALS: BP 108/58; PULSE 76; RESP 18; TEMP 36.9; O2SAT 99
[2023-12-13 09:42] LABS: Appearance Urine Clear; Color Urine Yellow; Glucose Urine UA 250 mg/dL (Negative); Leukocyte Esterase Urine Trace (Negative); Nitrite Urine Negative (Negative); Specific Gravity - Urine 1.015 (1.005-1.025); UMIC TRIGGER UACC YES; Urine Blood Negative (Negative); Urine Ketones Negative (Negative); Urine Protein Negative (Neg-Trace)
[2023-12-13 09:47] LABS: Bacteria Urine None Seen (None Seen); Hyaline Casts Urine 0-2 /LPF (0-2); RBC Urine 0-2 /HPF (0-2); WBC Urine 0-5 /HPF (0-5)
[2023-12-13] MEDS: Acetaminophen 325 MG TABLET 650 MG PO (10:18)
[2023-12-13] MEDS: Ondansetron ODT 4 MG TAB.RAPDIS TRANSLINGU (10:18)
[2023-12-13 10:20] VITALS: BP 108/58; PULSE 76; RESP 16; TEMP 36.9; O2SAT 99
== END 2023-12-13 10:21 | disposition home or self-care (01) ==
PROVIDERS: Emergency Provider Emergency Medicine; PCP Internal Medicine
DX: S29.012A Strain of muscle and tendon of back wall of thorax, initial encounter (principal); I10 Essential (primary) hypertension; X58.XXXA Exposure to other specified factors, initial encounter; Y93.9 Activity, unspecified; Y92.9 Unspecified place or not applicable; Y99.9 Unspecified external cause status
CPT/HCPCS: 71046; 81001; 99283

== ENCOUNTER 2024-04-29 11:03 | Outpatient (REF) | payer OTHER, SELFPAY ==
[2024-04-29 11:14] LABS: MANUAL DIFF FLAG NO
[2024-04-29 11:41] LABS: Basophils Percent Auto 0.4 % (0-2); Eosinophils Absolute Auto 0.2 X10*3/uL (0.0-0.4); Eosinophils Percent Auto 3.1 % (0-4); Hematocrit 39.1 % (37.0-47.0); Hemoglobin 12.8 g/dl (12.0-16.0); Imm Gran Abs Auto 0.02 X10*3/uL (0.00-0.03); Imm Gran Pct Auto 0.3 % (0.0-0.4); Lymphocytes Absolute Auto 3.3 X10*3/uL (1.2-4.9); Lymphocytes Percent Auto 43.9 % (20-40); Mean Corpuscular HGB Conc 32.7 g/dl (31.0-35.0); Mean Corpuscular Hemoglobin 26.4 pg (27.0-33.0); Mean Corpuscular Volume 80.6 fL (80.0-98.0); Mean Platelet Volume 10.5 fL (9.4-12.3); Monocytes Absolute Auto 0.7 X10*3/uL (0.1-1.2); Monocytes Percent Auto 9.2 % (2-11); Neutrophils Absolute Auto 3.2 x10*3/uL (2.0-8.3); Neutrophils Percent Auto 43.1 % (45-73); Platelet Count 333 X10*3/uL (160-400); Red Blood Count 4.85 X10*6/uL (4.20-5.50); Red Cell Distribution Width 14.8 % (11.0-16.0); White Blood Count 7.4 X10*3/uL (4.8-10.8)
[2024-04-29 12:42] LABS: Alanine Aminotransferase 24 U/L (0-31); Alkaline Phosphatase 60 U/L (39-117); Anion Gap 11 (12-20); Aspartate Amino Transferase 25 U/L (5-31); Bilirubin Total 0.1 mg/dL (0.0-1.0); Blood Urea Nitrogen 10 mg/dL (9-16); Calcium 9.1 mg/dL (8.4-10.2); Carbon Dioxide 26 mmol/L (22-29); Chloride 108 mmol/L (96-108); Cholesterol 168 mg/dL (<200); Estimated Glomerular Filt Rate > 60; Glucose Random 93 mg/dL (60-115); HDL Cholesterol 51 mg/dL (>40); LDL Cholesterol Calculated 66 mg/dL (<100); Potassium 3.9 mmol/L (3.3-5.1); Sodium 141 mmol/L (135-145); Total Protein 7.8 g/dL (6.5-8.0); Triglycerides 257 mg/dL (<150)
[2024-04-29 12:43] LABS: Thyroid Stimulating Hormone 2.62 uIU/mL (0.32-4.0)
== END 2024-04-29 11:04 | disposition home or self-care (01) ==
LOC: HO.LAB 11:03
PROVIDERS: PCP Internal Medicine; Visit Provider Internal Medicine
DX: I10 Essential (primary) hypertension (principal); L71.9 Rosacea, unspecified; M79.7 Fibromyalgia; R74.01 Elevation of levels of liver transaminase levels; Z68.37 Body mass index [BMI] 37.0-37.9, adult
CPT/HCPCS: 36415; 80053; 80061; 83498; 84443; 85025

== ENCOUNTER 2024-09-10 08:25 | Outpatient (REF) | payer OTHER, SELFPAY ==
[2024-09-10 10:02] LABS: Cholesterol 137 mg/dL (<200); HDL Cholesterol 56 mg/dL (>40); LDL Cholesterol Calculated 66 mg/dL (<100); Triglycerides 77 mg/dL (<150)
[2024-09-20 18:44] LABS: Testosterone, Free 3.9 pg/mL (0.1-6.4); Testosterone, Total 39 ng/dL (2-45)
== END 2024-09-10 08:26 | disposition home or self-care (01) ==
LOC: HO.LAB 08:25
PROVIDERS: PCP Internal Medicine; Visit Provider Internal Medicine
DX: E78.2 Mixed hyperlipidemia (principal); F32.2 Major depressive disorder, single episode, severe without psychotic features; J45.909 Unspecified asthma, uncomplicated; L65.0 Telogen effluvium; L68.2 Localized hypertrichosis
CPT/HCPCS: 36415; 80061; 84402; 84403

== ENCOUNTER 2024-11-06 07:53 | Outpatient (AMB) | payer OTHER, SELFPAY ==
--- OUTSIDE RECORDS SUMMARY | 2024-11-06 07:55 | XMS_ITS | Clinical Summary ---
Author Organization [facility] Address [address] [place] [address] Phone Care Team Providers Care Juvenile Corrections Officer Name Role Phone Graciela Benson MD Primary Care Provider [phone] Allergies No known active allergies Medications cholecalciferol (VITAMIN D-3) 50 mcg (2,000 unit) capsule Take 1 capsule (2,000 Units total) by mouth 1 (one) time each day. 08/06/2023 Active amitriptyline HCl (AMITRIPTYLINE ORAL) Take 20 mg by mouth 1 (one) time each day in the evening. Active lisinopriL (PRINIVIL,ZESTR IL) 10 mg tablet Take 1 tablet (10 mg total) by mouth 1 (one) time each day. Active gabapentin (NEURONTIN) 100 mg capsule Take 1 capsule (100 mg total) by mouth 1 (one) time each day. Active sertraline HCl (SERTRALINE ORAL) Take by mouth. Active omeprazole OTC (PriLOSEC OTC) 20 mg EC tablet Take 1 tablet (20 mg total) by mouth 1 (one) time each day. Active Active Problems Problem Noted Date Diagnosed Date Chronic neck and back pain 06/05/2018 Intertrigo 06/05/2018 Macromastia 06/05/2018 GBS (group B Streptococcus c arrier), +RV culture, currently 12/11/2017 Overview (10/21/2024): Treat in labor Hx of preeclampsia, prior , currently p regnant 08/01/2017 Overview (10/21/2024): Per pt report, she was found to have preeclampsia at of her first baby. Started on ASA 81mg daily by Dr Sylvester 07/31/17. Immunizations Name Administration Dates Next Due Hepatitis A-Hepatitis B Adul t (Twinrix) 18yo and older 04/09/2015,11/05/2014,10/08/2014 Influenza Quadravalent, MDCK , 0.5ml, preservative free (Flucelvax) 6mo and older 06/06/2017 Tdap Tetanus diptheria acell ular pertussis (Boostrix; Adacel) 7yo and older 09/28/2017 Medical History Medical History Date Comments Anxiety state DX:Anxiety state Venereal disease DX:Venereal dis ease Asthma DX:Asthma History of vitamin D deficiency 10/05/2015 DX:History of vitamin D deficiency; COMMENT: Vitamin D = 17 Bacterial vaginosis 10/05/2015 DX:Bacterial vaginosis; COMMENT: 06/21/15, 09/21/14, 07/15/08 Vaginal yeast infection 02/05/2014 DX:Vagin al yeast infection; COMMENT: 05/21/13, 05/30/12 Elevated TSH 07/15/2008 DX:Elevated TSH; COMMENT: TSH = 7.29 Vocal cord polyp 2011 DX:Vocal cord p olyp Essential hypertension DX:Essent ial hypertension Migraines DX:Migraines Family History Medical History Relation Name Comments Diabetes Maternal Grandmother Arthritis Mother Asthma Mother Diabetes Mother Hypertension Mother Other: fibromyalgia Mother Breast cancer Neg Hx Colon cancer Neg Hx Ovarian cancer Neg Hx Prostate cancer Neg Hx Relation Name Status Comments Father Alive Maternal Grandmother Mother Alive Social History Tobacco Use Types Packs/Day Years Used Date Smoking Tobacco: Never Smokeless Tobacco: Never Alcohol Use Standard Drinks/Week Comments Yes 0 (1 standard drink = 0.6 oz pur e alcohol) Comments Unknown Sex and Gender Information Value Date Recorded Sex Assigned at Not on file Legal Sex Female 9:03 AM EST Gender Identity Not on file Sexual Orientation Not on file Obstetrics History Last Filed Vital Signs Vital Sign Reading Time Taken Comments Blood Pressure 114/62 08/06/2023 10:00 AM EST Pulse 74 08/06/2023 10:00 AM EST Temperature - - Respiratory Rate - - Oxygen Saturation - - Inhaled Oxygen Concentration - - Weight 90.3 kg (199 lb) 08/06/2023 10:00 AM EST Height 154.9 cm (5' 1 ) 08/06/2023 10:00 AM EST Body Mass Index 37.6 08/06/2023 10:00 AM EST Plan of Treatment Upcoming Encounters Date Type Department Care Team (Late st Contact Info) Description 02/16/2025 1:30 PM EDT Office Visit Obstetrics & Gynecology - [facility] [address] [place] [address] Suyapa Beaulieu, CNM [address] [place] [address] Health Maintenance Due Date Last Done Comments Depression Screening 07/30/2022 Social Influencers of Health Screening 07/30/2022 COVID-19 Vaccine (2023-2 5 season) 2024 Influenza Vaccine (#1) 2024 06/06/2017 Cervical Cancer Screening: HPV 02/07/2026 02/07/2021 DTaP,Tdap,and Td Vaccines (2 - Td or Tdap) 09/28/2027 09/28/2017 Hepatitis A Vaccines Aged Out 04/09/2015, 11/05/2014, 10/08/2014 No longer eligible based on patient's age to complete this topic Hepatitis B Vaccines Completed 04/09/2015, 11/05/2014, 10/08/2014 HIV Screening Completed 02/07/2021 Hepatitis C Screening Completed 02/07/2021 HIB Vaccines Aged Out No longer eligi ble based on patient's age to complete this topic HPV Vaccines Aged Out No longer eligi ble based on patient's age to complete this topic IPV Vaccines Aged Out No longer eligi ble based on patient's age to complete this topic MMR Vaccines Aged Out No longer eligi ble based on patient's age to complete this topic Meningococcal ACWY Vaccine Aged Out N o longer eligible based on patient's age to complete this topic Meningococcal B Vacine Aged Out No lo nger eligible based on patient's age to complete this topic Pneumococcal Vaccine: Pediatrics (0 to 5 Years) and At-Risk Patients (6 to 64 Years) Aged Out No longer eligible b ased on patient's age to complete this topic RSV Immunization Patients Under 20 months Aged Out No longer eligible b ased on patient's age to complete this topic Varicella Vaccines Aged Out No longer eligible based on patient's age to complete this topic Procedures Procedure Name Priority Date/Time Associated Diagnosis Comments HPV Routine 02/07/2021 HEPATITIS C SCREENING Routine 02/07/2021 HIV SCREENING Routine 02/07/2021 from Last 3 Months or Most Recently Relevant to Health Maintenance Results * Cervical Cancer Screening: HPV (02/07/2021) Cervical Cancer Screening: HPV Abstracted, Negative [facility] Provider MD HEALTH MAINTENANCE Final Result * HIV Screening (02/07/2021) Pathologist [facility] HIV Screening Abstracted [facility] Provider MD HEALTH MAINTENANCE Final Result * Hepatitis C Screening (02/07/2021) Pathologist [facility] Hepatitis C Screening Abstracted [facility] Provider HEALTH MAINTENANCE Final Result from Last 3 Months or Most Recently Relevant to Health Maintenance Insurance [employer] Care Teams Juvenile Corrections Officer Relationship Specialty Start Date End Date Garciela Benson MD [phone] PCP - General Internal Medicine 10/12/16
--- OUTSIDE RECORDS SUMMARY | 2024-11-06 07:55 | XMS_ITS ---
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 Name Role Phone YoditbrendenGraciela Primary Care Provider UnavailDemian Villarreal Unavailable [phone] Allergies No Known Allergies REASON FOR VISIT Patient presents today for a fatty liver Medications Medication SIG (Take, Route, Frequency, Duration) Notes Start Date End Date Status Omeprazole 40 MG 1 capsule Orally Onc e a day Active Dicyclomine HCl 10 MG 1 - 2 capsules Ora lly Every 6 hours as needed for abdominal discomfort for 30 day(s) 06/12/2023 Not-Taking Tylenol prn Not-Taking Flovent HFA Not-Taki ng Albuterol Not-Taking Meclizine HCl Not-Ta kenny tiZANidine HCl 4 MG TAKE 1 TABLET BY TWICE A DAY Oral for 30 Not-Taki ng Lisinopril 5 MG 2 tablet Orally Once a day Active Meloxicam 15 MG Oral for 30 No t-Taking traZODone HCl 50 MG Oral for 30 Not-Taking Vitamin D 1000 UNIT 1 tablet Orally Once a day Active Social History Tobacco Use: Social History Observation Description Date Details (start date - stop date) Never Smoker NA - NA Tobacco Use/Smoking Question Answer Notes Patient is a nonsmoker Alcohol Screen Question Answer Notes Did you have a drink contain ing alcohol in the past year? Yes How often did you have a dri nk containing alcohol in the past year? Monthly or less (1 point) How many drinks did you have on a typical day when you were drinking in the past year? 1 or 2 drinks (0 point) How often did you have 6 or more drinks on one occasion in the past year? Never (0 point) Points 1 Interpretation Negative Section Notes: Nonsmoker; she describes hav ing a 6 pack of beer about every other weekend in the past, but now only occ. EtOH as of the 07/27/2021 OV Vital Signs Blood pressure systolic 00 mm Hg 05/27/20 24 Blood pressure diastolic 00 mm Hg 024 Height 5 ft 1 in in 05/27/2024 Weight 195 lbs 05/27/2024 BMI 36.84 kg/m2 05/27/2024 Encounters Encounter Location Date Provider Diagnosis [facility] [address] [place] [address] 05/27/2024 Demian Santos Gastroesophageal ref lux disease, esophagitis presence not specified K21.9 ; Abdominal pain, epigastric R10.13 ; Constipation, unspecified constipation type K59.00 ; Fatty liver K76.0 ; Elevated liver function tests R79.89 ; Cali's esophagus without dysplasia K22.70 and Irritable bowel syndrome with constipation K58.1 Assessments Encounter Date Diagnosis (ICD Code) Assessment Notes Treatment Notes Treatment Clinical Notes Section Notes 05/27/2024 Gastroesophageal reflux disease, esophagitis presence not specified (ICD-10 - K21.9) Use the omeprazole daily Zoraida appears well from a clinical standpoint. We did review the findings on her upper endoscopy and I advised her of the need for a followup upper endoscopy in 2026 despite the negative biopsies for Cali's esophagus this year. I did advise her to continue omeprazole at least once a day for her reflux symptoms. We did review that medications such as the Wegovy can cause a lot of GI symptoms including increased reflux, early satiety, some constipation, and bloating. I did advise her to use MiraLax at least once or twice a day on a regular basis to hopefully facilitate more regular bowel movements. I advised her that would help decrease her bloating and gas. I did advise her to certainly use Gas-X and the dicyclomine for the irritable bowel symptoms and discomfort. We did review her recent normal liver profile which is obviously very encouraging. I advised her that weight loss, healthy diet, and avoidance of alcohol are the most important things for her to do at this point in regard to her overall health, as well as the fatty liver. If things are stable I will plan to see Zoraida in one year for a followup visit. I did advise her to certainly call should she have any problems or questions I can be of assistance with in the interim. Zoraida was comfortable with this plan. Thank you again for allowing me to participate in Zoraida's care. I shall continue to keep you advised of her progress. 05/27/2024 Abdominal pain, epigastric (ICD-10 - R10.13) Use the Dicyclomine and Gas-X for the abdominal pain, bloating, and gas. Try to keep the BM's moving regularly Zoraida appears well from a clinical standpoint. We did review the findings on her upper endoscopy and I advised her of the need for a followup upper endoscopy in 2026 despite the negative biopsies for Cali's esophagus this year. I did advise her to continue omeprazole at least once a day for her reflux symptoms. We did review that medications such as the Wegovy can cause a lot of GI symptoms including increased reflux, early satiety, some constipation, and bloating. I did advise her to use MiraLax at least once or twice a day on a regular basis to hopefully facilitate more regular bowel movements. I advised her that would help decrease her bloating and gas. I did advise her to certainly use Gas-X and the dicyclomine for the irritable bowel symptoms and discomfort. We did review her recent normal liver profile which is obviously very encouraging. I advised her that weight loss, healthy diet, and avoidance of alcohol are the most important things for her to do at this point in regard to her overall health, as well as the fatty liver. If things are stable I will plan to see Zoraida in one year for a followup visit. I did advise her to certainly call should she have any problems or questions I can be of assistance with in the interim. Zoraida was comfortable with this plan. Thank you again for allowing me to participate in Zoraida's care. I shall continue to keep you advised of her progress. 05/27/2024 Constipation, unspecified constipation type (ICD-10 - K59.00) Use Miralax twice a day Zoraida appears well from a clinical standpoint. We did review the findings on her upper endoscopy and I advised her of the need for a followup upper endoscopy in 2026 despite the negative biopsies for Cali's esophagus this year. I did advise her to continue omeprazole at least once a day for her reflux symptoms. We did review that medications such as the Wegovy can cause a lot of GI symptoms including increased reflux, early satiety, some constipation, and bloating. I did advise her to use MiraLax at least once or twice a day on a regular basis to hopefully facilitate more regular bowel movements. I advised her that would help decrease her bloating and gas. I did advise her to certainly use Gas-X and the dicyclomine for the irritable bowel symptoms and discomfort. We did review her recent normal liver profile which is obviously very encouraging. I advised her that weight loss, healthy diet, and avoidance of alcohol are the most important things for her to do at this point in regard to her overall health, as well as the fatty liver. If things are stable I will plan to see Zoraida in one year for a followup visit. I did advise her to certainly call should she have any problems or questions I can be of assistance with in the interim. Zoraida was comfortable with this plan. Thank you again for allowing me to participate in Zoraida's care. I shall continue to keep you advised of her progress. 05/27/2024 Fatty liver (ICD-10 - K76.0) Try to lose weight with the Wegovy and avoid alcohol Zoraida appears well from a clinical standpoint. We did review the findings on her upper endoscopy and I advised her of the need for a followup upper endoscopy in 2026 despite the negative biopsies for Cali's esophagus this year. I did advise her to continue omeprazole at least once a day for her reflux symptoms. We did review that medications such as the Wegovy can cause a lot of GI symptoms including increased reflux, early satiety, some constipation, and bloating. I did advise her to use MiraLax at least once or twice a day on a regular basis to hopefully facilitate more regular bowel movements. I advised her that would help decrease her bloating and gas. I did advise her to certainly use Gas-X and the dicyclomine for the irritable bowel symptoms and discomfort. We did review her recent normal liver profile which is obviously very encouraging. I advised her that weight loss, healthy diet, and avoidance of alcohol are the most important things for her to do at this point in regard to her overall health, as well as the fatty liver. If things are stable I will plan to see Zoraida in one year for a followup visit. I did advise her to certainly call should she have any problems or questions I can be of assistance with in the interim. Zoraida was comfortable with this plan. Thank you again for allowing me to participate in Zoraida's care. I shall continue to keep you advised of her progress. 05/27/2024 Elevated liver function tests (ICD-10 - R79.89) Zoraida appears well from a clinical standpoint. We did review the findings on her upper endoscopy and I advised her of the need for a followup upper endoscopy in 2026 despite the negative biopsies for Cali's esophagus this year. I did advise her to continue omeprazole at least once a day for her reflux symptoms. We did review that medications such as the Wegovy can cause a lot of GI symptoms including increased reflux, early satiety, some constipation, and bloating. I did advise her to use MiraLax at least once or twice a day on a regular basis to hopefully facilitate more regular bowel movements. I advised her that would help decrease her bloating and gas. I did advise her to certainly use Gas-X and the dicyclomine for the irritable bowel symptoms and discomfort. We did review her recent normal liver profile which is obviously very encouraging. I advised her that weight loss, healthy diet, and avoidance of alcohol are the most important things for her to do at this point in regard to her overall health, as well as the fatty liver. If things are stable I will plan to see Zoraida in one year for a followup visit. I did advise her to certainly call should she have any problems or questions I can be of assistance with in the interim. Zoraida was comfortable with this plan. Thank you again for allowing me to participate in Zoraida's care. I shall continue to keep you advised of her progress. 05/27/2024 Cali's esophagus without dysplasia (ICD-10 - K22.70) Repeat the upper endoscopy in 2026. Zoraida appears well from a clinical standpoint. We did review the findings on her upper endoscopy and I advised her of the need for a followup upper endoscopy in 2026 despite the negative biopsies for Cali's esophagus this year. I did advise her to continue omeprazole at least once a day for her reflux symptoms. We did review that medications such as the Wegovy can cause a lot of GI symptoms including increased reflux, early satiety, some constipation, and bloating. I did advise her to use MiraLax at least once or twice a day on a regular basis to hopefully facilitate more regular bowel movements. I advised her that would help decrease her bloating and gas. I did advise her to certainly use Gas-X and the dicyclomine for the irritable bowel symptoms and discomfort. We did review her recent normal liver profile which is obviously very encouraging. I advised her that weight loss, healthy diet, and avoidance of alcohol are the most important things for her to do at this point in regard to her overall health, as well as the fatty liver. If things are stable I will plan to see Zoraida in one year for a followup visit. I did advise her to certainly call should she have any problems or questions I can be of assistance with in the interim. Zoraida was comfortable with this plan. Thank you again for allowing me to participate in Zoraida's care. I shall continue to keep you advised of her progress. 05/27/2024 Irritable bowel syndrome with constipation (ICD-10 - K58.1) Zoraida appears well from a clinical standpoint. We did review the findings on her upper endoscopy and I advised her of the need for a followup upper endoscopy in 2026 despite the negative biopsies for Cali's esophagus this year. I did advise her to continue omeprazole at least once a day for her reflux symptoms. We did review that medications such as the Wegovy can cause a lot of GI symptoms including increased reflux, early satiety, some constipation, and bloating. I did advise her to use MiraLax at least once or twice a day on a regular basis to hopefully facilitate more regular bowel movements. I advised her that would help decrease her bloating and gas. I did advise her to certainly use Gas-X and the dicyclomine for the irritable bowel symptoms and discomfort. We did review her recent normal liver profile which is obviously very encouraging. I advised her that weight loss, healthy diet, and avoidance of alcohol are the most important things for her to do at this point in regard to her overall health, as well as the fatty liver. If things are stable I will plan to see Zoraida in one year for a followup visit. I did advise her to certainly call should she have any problems or questions I can be of assistance with in the interim. Zoraida was comfortable with this plan. Thank you again for allowing me to participate in Zoraida's care. I shall continue to keep you advised of her progress. Plan Of Treatment Treatment Notes Assessment Notes Gastroesophageal reflux dise ase, esophagitis presence not specified Use the omeprazole daily Abdominal pain, epigastric Use the Dicyc lomine and Gas-X for the abdominal pain, bloating, and gas. Try to keep the BM's moving regularly Constipation, unspecified constipation t ype Use Miralax twice a day Fatty liver Try to lose weight w ith the Wegovy and avoid alcohol Cali's esophagus without dysplasia Re peat the upper endoscopy in 2026. Next Appt Details Follow Up: 1 Year, Reason: Provider Name:Demian Santos , 05/28/2025 10:00:00 AM, [address] [place] [address], [address], [place], [address], Progress Notes * SUSAN BELLO B:1985 (39 yo F)Acc No.[id number]:05/27/2024 Progress Notes Patient:?Harinder BELLO Provider:?Demain Santos MD :1985???Age:39 Y???Sex:Female D ate:05/27/2024 Address:[address] [place], [place] [id number] Pcp:Graciela Benson Subjective: * Chief Complaints: * ???Patient presents today fo r a fatty liver * HPI: ???incontinence:? I saw Zoraida in followup today in regard to her underlying history of fatty liver with previously elevated LFTs, gastroesophageal reflux with a small area of Cali's esophagus, and irritable bowel syndrome associated constipation. ?I last saw Zoraida in October, at which time she underwent a followup upper endoscopy which revealed only a small hiatal hernia, but no changes of esophagitis nor gastritis. Esophageal biopsies were negative for Cali's mucosa and gastric biopsies were negative for H. pylori. ?She describes remaining on omeprazole twice a day. She does not have much in the way of any heartburn but does have a lot of postprandial abdominal complaints of bloating, abdominal burning, abdominal cramps, gas, and belching. She denies any anorexia, dysphagia, nausea, nor vomiting. She does remain constipated despite taking daily MiraLax. She has a bowel movement every second or third day. She has not noticed any signs of bleeding, jaundice, fevers, nor unintentional weight loss. She has been started on Wegovy ingections recently for weight loss. ?She describes that she has been trying to eat carefully and healthy. She has been using only minimal amounts of alcohol on the weekend. Her most recent labs from early April revealed a normal CBC with platelet count, normal chemistries, and completely normal liver profile. * ROS:?General/Constitutional:?Change in appetite?denies.?Chills?denies.?Fatigue?denies.?Ophthalmologic:?Comments?all negative.?ENT:?Comments?all negative.?Respiratory:?hemoptysis?denies.?Cough?denies.?Cardiovascular:?Chest pain?denies.?Orthopnea?denies.?Gastrointestinal:?Comments?See HPI for details.?Genitourinary:?Hematuria?denies.?Dysuria?denies.?Musculoskeletal:?Painful joints?denies.?Weakness?denies.?Skin:?Itching?denies.?Rash?denies.?Neurologic:?Headache?denies.?Seizures?denies.?Psychiatric:?Comments?all negative.? * Medical History:? * Surgical History:?Vocal cord surgery(polyps) 2014Cholecystectomy for gallstones in 08/2018 -Dr. Murray * Hospitalization/Major Diagno stic Procedure:?No Hospitalization History. * Family History:?Father: helen ludwig?Mother: alive, throat cancer/ lymphomia, diagnosed with HTN (hypertension), Diabetes.?Paternal uncle: alive, diagnosed with Colon cancer.?Maternal uncle: alive, lymphoma.? No known hx of colon cancer nor liver disease. * Social History:?Tobacco Use:?Tobacco Use/Smoking?Patient is a?nonsmoker.?Drugs/Alcohol:?Alcohol Screen?Did you have a drink containing alcohol in the past year??Yes,?How often did you have a drink containing alcohol in the past year??Monthly or less (1 point), How many drinks did you have on a typical day when you were drinking in the past year??1 or 2 drinks (0 point),?How often did you have 6 or more drinks on one occasion in the past year??Never (0 point),?Points?1,?Interpretation?Negative.?Miscellaneous:?Caffeine: 1-2 cups per day. Marital status: Single. 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 ???Nonsmoker; she describes having a 6 pack of beer about every other weekend in the past, but now only occ. EtOH as of the 07/27/2021 OV. * Medications:?TakingVitamin D 1000 UNIT Tablet 1 tablet Orally Once a dayLisinopril 5 MG Tablet 2 tablet Orally Once a dayOmeprazole 40 MG Capsule Delayed Release 1 capsule Orally Once a dayTaking Vitamin D 1000 UNIT Tablet 1 tablet Orally Once a dayTaking Lisinopril 5 MG Tablet 2 tablet Orally Once a dayTaking Omeprazole 40 MG Capsule Delayed Release 1 capsule Orally Once a dayNot-Taking/PRNtiZANidine HCl 4 MG Tablet TAKE 1 TABLET BY MOUTH TWICE A DAY Oral Meclizine HCl traZODone HCl 50 MG Tablet Oral Meloxicam 15 MG Tablet Oral Albuterol Flovent HFA Tylenol prnDicyclomine HCl 10 MG Capsule 1 - 2 capsules Orally Every 6 hours as needed for abdominal discomfortMedication List reviewed and reconciled with the patientNot-Taking/PRN tiZANidine HCl 4 MG Tablet TAKE 1 TABLET BY MOUTH TWICE A DAY Oral Not- Taking/PRN Meclizine HCl Not-Taking/PRN traZODone HCl 50 MG Tablet Oral Not-Taking/PRN Meloxicam 15 MG Tablet Oral Not-Taking/PRN Albuterol Not-Taking/PRN Flovent HFA Not- Taking/PRN Tylenol prnNot-Taking/PRN Dicyclomine HCl 10 MG Capsule 1 - 2 capsules Orally Every 6 hours as needed for abdominal discomfortMedication List reviewed and reconciled with the patient * Allergies:?N.K.D.A.yes[Aller gies Verified] Objective: * Vitals:?Wt: 195 lbs, Ht: 5 f t 1 in, BMI:36.84 Index, BP: 00/00 mm Hg. * Examination: ???General Examination: ?GENERAL APPEARANCE:?pleasant, well nourished, well developed, in no acute distress.?EYES:?sclera non-icteric.?ORAL CAVITY:?mucosa moist.?NECK/THYROID:?no cervical lymphadenopathy, neck supple.?SKIN:?nonjaundiced, no spider angiomata.?HEART:?S1, S2 normal.?LUNGS:?clear to auscultation bilaterally.?ABDOMEN:?normal bowel sounds, no guarding or rigidity, no guarding or rigidity, no masses palpable, soft, nontender, nondistended.?EXTREMITIES:?no edema.?NEUROLOGIC:?alert and oriented.? Assessment: * Assessment: 1.?Gastroesophageal reflux d isease, esophagitis presence not specified - K21.9 (Primary)?2.?Abdominal pain, epigastric - R10.13?3.?Constipation, unspecified constipation type - K59.00?4.?Fatty liver - K76.0?5.?Elevated liver function tests - R79.89?6.?Cali's esophagus without dysplasia - K22.70?7.?Irritable bowel syndrome with constipation - K58.1? Zoraida appears well from a clinical standpoint. We did review the findings on her upper endoscopy and I advised her of the need for a followup upper endoscopy in 2026 despite the negative biopsies for Cali's esophagus this year. I did advise her to continue omeprazole at least once a day for her reflux symptoms. We did review that medications such as the Wegovy can cause a lot of GI symptoms including increased reflux, early satiety, some constipation, and bloating. I did advise her to use MiraLax at least once or twice a day on a regular basis to hopefully facilitate more regular bowel movements. I advised her that would help decrease her bloating and gas. I did advise her to certainly use Gas-X and the dicyclomine for the irritable bowel symptoms and discomfort. We did review her recent normal liver profile which is obviously very encouraging. I advised her that weight loss, healthy diet, and avoidance of alcohol are the most important things for her to do at this point in regard to her overall health, as well as the fatty liver. If things are stable I will plan to see Zoraida in one year for a followup visit. I did advise her to certainly call should she have any problems or questions I can be of assistance with in the interim. Zoraida was comfortable with this plan. Thank you again for allowing me to participate in Zoraida's care. I shall continue to keep you advised of her progress. Plan: * Treatment: 2.?Abdominal pain, epigastri c? Notes: Use the Dicyclomine and Gas-X for the abdominal pain, bloating, and gas. Try to keep the BM's moving regularly?? 3.?Constipation, unspecified constipation type? Notes: Use Miralax twice a day?? 4.?Fatty liver? Notes: Try to lose weight with the Wegovy and avoid alcohol?? 5.?Cali's esophagus witho ut dysplasia? Notes: Repeat the upper endoscopy in 2026.?? * Procedure Codes:?1036F TOBAC CO [id number] BP SCR NOT PRFRM REC REASON NOS * Preventive Medicine:? ??Counseling:?Care goal follow-up plan:?Above Normal BMI Follow-up?Giving encouragement to exercise,?BMI management provided?Yes.? * Follow Up:?1 Year * * Sign off status: Completed true * Provider:?Demian Santos MD Date:? 024 Generated for Roberto freire/Sam/Salty on:?11/06/2024 07:55 AM EDT History and Physical Notes * HPI (History of Present Illness) Category Sub-Category Detail Notes Category Not es incontinence I saw Zoraida in followup today in regard to her underlying history of fatty liver with previously elevated LFTs, gastroesophageal reflux with a small area of Cali's esophagus, and irritable bowel syndrome associated constipation. I last saw Zoraida in October, at which time she underwent a followup upper endoscopy which revealed only a small hiatal hernia, but no changes of esophagitis nor gastritis. Esophageal biopsies were negative for Cali's mucosa and gastric biopsies were negative for H. pylori. She describes remaining on omeprazole twice a day. She does not have much in the way of any heartburn but does have a lot of postprandial abdominal complaints of bloating, abdominal burning, abdominal cramps, gas, and belching. She denies any anorexia, dysphagia, nausea, nor vomiting. She does remain constipated despite taking daily MiraLax. She has a bowel movement every second or third day. She has not noticed any signs of bleeding, jaundice, fevers, nor unintentional weight loss. She has been started on Wegovy ingections recently for weight loss. She describes that she has been trying to eat carefully and healthy. She has been using only minimal amounts of alcohol on the weekend. Her most recent labs from early April revealed a normal CBC with platelet count, normal chemistries, and completely normal liver profile. Examination Category Sub-Category Detail Notes Category Not es General Examination GENERAL APPEARANCE: pleasant , well nourished, well developed, in no acute distress HEAD: EYES: sclera non-icteric EARS: NOSE: THROAT: NECK/THYROID: no cervical lymphade nopathy, neck supple HEART: S1, S2 normal CHEST: LUNGS: clear to auscultatio n bilaterally ABDOMEN: normal bowel sounds, no guarding or rigidity, no guarding or rigidity, no masses palpable, soft, nontender, nondistended NEUROLOGIC: alert and oriented SKIN: nonjaundiced, no spi rodolfo angiomata EXTREMITIES: no edema PERIPHERAL PULSES: BACK: BREASTS: MUSCULOSKELETAL: MALE GENITOURINARY: LYMPH NODES: RECTAL EXAM: FEMALE GENITOURINARY: ORAL CAVITY: mucosa moist
--- OUTSIDE RECORDS SUMMARY | 2024-11-06 07:55 | XMS_ITS ---
Author Organization [facility] Address [address] [place] [address] Care Team Providers Care Recycling Or Rubbish Collector Name Role Phone Marcelino Graciela Primary Care Provider Unavailab Demian Gray Unavailable [phone] REASON FOR VISIT Needs f/u with Dr. Santos in the fall Encounters Encounter Location Date Provider Diagnosis [facility] [address] [place] [address] 11/26/2023 Demian Santos Plan Of Treatment Next Appt Details Provider Name:Demian Santos , 05/28/2025 10:00:00 AM, [address], [address], [place], [address], Progress Notes * SUSAN BELLO B:1985 (38 yo F)Acc No.[id number]:11/26/2023 Patient:?Harinder BELLO :1985???Age:38 Y???Sex:Female Address:[address] [place] [address] [place], [address] * true * Date:? Generated for Printi ng/Sam/eTransmitting on:?11/06/2024 07:55 AM EDT
--- OUTSIDE RECORDS SUMMARY | 2024-11-06 07:55 | XMS_ITS | Data Portability ---
Author Organization [facility] ([facility] Address [address], [address] [place] [address] Assessment No assessment recorded. Plan of Treatment Reminders Order Date Submit Date Provider Last Modified By Organization Details Last Modified Time Details Appointments None record ed. Lab None record ed. Referral None record ed. Procedures None record ed. Surgeries None record ed. Imaging None record ed. Medication Orders None record ed. Patient TargetsNo targets recorded. Patient InstructionsNo instructions recorded. Reason for Referral None Reported. Medical Equipment None Reported. Medications Name Sig Start Date Stop Date Status Note LastModified by Organization Details LastModified Time clindamycin HCl 300 mg capsule active Not Available Not Availab le Not Available meclizine 12.5 mg tablet active Not Available Not Available Not Available metronidazole 500 mg tablet active Not Available Not Available No t Available clotrimazole-beta methasone 1 %-0.05 % topical cream active Not Available Not Available Not Available omeprazole 20 mg capsule,delayed release active Not Available Not Available Not Available sertraline 50 mg tablet active Not Available Not Available Not Available sulindac 200 mg tablet active Not Available Not Available Not Available naproxen 500 mg tablet active Not Available Not Available Not Available Ventolin HFA 90 mcg/actuation aerosol inhaler active Not Available Not Availa ble Not Available cyclobenzaprine 5 mg tablet active Not Available Not Available No t Available Pain and Fever 325 mg tablet active Not Available Not Availabl e Not Available Vitamin D3 50 mcg (2,000 unit) capsule active Not Available Not Available Not Available 28 mg iron-800 mcg tablet active Not Available Not Available Not Available Vitals None Recorded Social History None recorded. Functional Status None recorded. Mental Status None recorded. Family History Nothing Reported. Medical History No medical history recorded. Gynecological HistoryNo gynecological history recorded. Obstetrics History GPAL:G 0 P 0 0 0 0 Past Encounters Encounter ID Performer Location Encounter Start Date Encounter Closed Date Diagnosis/Indication Diagnosis SNOMED-CT Code Diagnosis ICD10 Code Diagnosis [id number] [address] [facility] [place] [address] 10/31/2017 11:19:30 10/31/2017 11:19:53 [id number] [facility] [address] [place] [address] 12/27/2017 15:25:47 12/27/2017 15:26:[id number] [place] [address] 01/08/2018 09:10:10 01/08/2018 09:10:23 Health Concerns Section Related Observation LastModified by Organization Detai ls LastModified Time None Recorded Concern Status LastModified by Organization Details LastModified Time None Recorded Advance Directives Directive None Recorded Payers Encounter Date Sequence Insurance Name Policy Number Policy Brock Covered Member ID Brock Member ID Guarantor Name 10/30/2017 1 [facility] - TOGETHER (MEDICAID HMO) Lina Anna [id number] 1 Lina Anna 12/26/2017 1 [facility] [employer] - TOGETHER (MEDICAID HMO) Lina Anna [id number] Lina Anna 01/04/2018 1 [facility] [employer] - TOGETHER (MEDICAID HMO) Lina Ramquez [id number] Lina Anna OBGyn Episode No OBEpisode recorded.
--- OUTSIDE RECORDS SUMMARY | 2024-11-06 07:56 | XMS_ITS ---
Author Organization [facility] Address [address] [place] [address] Care Team Providers Care Insurance Professional Name Role Phone Graciela Benson Primary Care Provider Unavailab Demian Gray [phone] REASON FOR VISIT RESULTS OF ENDOSCOPY Encounters Encounter Location Date Provider Diagnosis [facility] [address] [place] [address] 11/30/2023 Demian Santos Plan Of Treatment Next Appt Details Provider Name:Demian Santos , 05/28/2025 10:00:00 AM, [address], [address], [place], [address], Progress Notes * SUSAN BELLO B:1985 (38 yo F)Acc No.[id number]:11/30/2023 Patient:?Harinder BELLO :1985???Age:38 Y???Sex:Female Address:[place], [address] * true * Date:? Generated for Timothyi mouna/Sam/eTransmitting on:?11/06/2024 07:55 AM EDT
--- OUTSIDE RECORDS SUMMARY | 2024-11-06 07:56 | XMS_ITS | Patient Health Record ---
Author Organization [facility] Address [address] [place] [address] Care Team Providers Care Mortgage Loan Closer Name Role Phone Graciela Benson Primary Care Provider Unavailab Demian Gray Unavailable [phone] Allergies No Known Allergies Results Component Value Reference Range Notes Ur Preg Test Reviewed date:11/23/2023 12:50:56 PM Interpretation: Performing Lab:[facility], [address] [place] [phone] Notes/Report: Urine NEGATIVE NEGATIVE This test was developed to detect early . False negative results may occur after the 5th - 7th week of when using this test method. If clinically indicated, consider a serum hCG. Pathology Reviewed date:12/02/2023 11:46:38 PM Interpretation: Performing Lab:[facility], [address] [place] [phone] Notes/Report: ------- Name: Lina Bello Age/Sex: 38/F : 1985 Unit#: [id number] Attend Dr: Demian Santos Re11/23/23 Status : [facility] Location: [facility] Disch: ------- SPEC : [id number] RECD : 11/23/23-1214 STATUS: SP MANDUJANO NUM: [id number] MATTHIEU: 11/23/23-[address]: eDmian Santos ENTERED: 11/23/23- 30 SP TYPE: Surgical OTHR DR: Graciela Benson MD ORDERED: HE Stain/6, Gross Micro L4/2, IHC, Special st. 2/2, H. pylori, AB/PAS/2 Diagnosis A. Gastric antrum, b iopsy: Gastric antral mucosa with reactive changes and minimal chronic inactive gas tritis; negative for H pylori, intestinal metaplasia and dysplasia. B. Esophagogastric junction, at 35 cm, biopsy: Squamous mucosa with hyperplasia and intraepithelial eosi nophils (focally greater than 30 per high-power field, see comment) consistent with esophagitis, and columnar mucosa with moderate chronic inflammation; negative for intesti nal metaplasia and dysplasia. Comment: (B): These findings can be seen with reflux esophagitis, but eosinophilic esophagitis cannot be excluded, and clinical and endoscopic correlation is necessary. Clinical History Pre-Op Dx: Cali's esophagus, reflux Post-Op Dx: Hiatal h ernia, reflux Microscopic Description Microscopic sections reviewed. Immunostain for H. pylori on A is negative. AB/PAS on A and B are negative f or intestinal metaplasia. Controls stain appropriately. Material Received A. Bx gastric antrum B. Bx EG junction 35 cm Gross Description Received in 2 parts. Part A: Received in formalin labeled ?bx gastric antrum? are 3 yung-pink rectangular tissue fragments each measu ring 0.35 cm, submitted in toto in a cassette labeled A. Part B: Received in formalin labeled ?bx EG junction 35 cm? are 3 youssef-pink irregular tissue fragments eac h measuring 0.3 cm, submitted in toto in a cassette labeled B. CEDS Special studies orde red and performed: Immunostain for H. pylori on A1; AB/PAS stains on A1 and B1. CONTINUED ON NEXT PAGE ------- Name: Lina Bello Age/Sex: 38/F : 1985 Unit#: [id number] Attend Dr: Demian Santos Re11/23/23 Status : [facility] Location: [facility] Disch: ------- SPEC : [id number] REC -[id number] STATUS: SP NAZIA NUM: [id number] MATTHIEU: 11/23/23-[address] [facility] DR: Demian Santos ENTERED: 11/23/23- 30 SP TYPE: Surgical OTHR DR: Graciela Benson MD ORDERED: HE Stain/6, Gross Micro L4/2, IHC, Special st. 2/2, H. pylori, AB/PAS/2 Copies To: Graciela Benson MD [address] [place] [address] [address] [phone] Demian Santos [address] [place] [address] [id number] [phone] ------- Signed (si gnse on file) Jodi Sheth 11/26/23 1515 ------- END OF REPORT Reason For Referral No Information Medications Medication SIG (Take, Route, Frequency, Duration) Notes Start Date End Date Status Omeprazole 40 MG 1 capsule Orally Onc e a day Active Dicyclomine HCl 10 MG TAKE 1 TO 2 CAPSUL ES BY MOUTH EVERY 6 HOURS NEEDED FOR ABDOMINAL DISCOMFORT for 5 Active Tylenol prn Not-Taking Flovent HFA Not-Carla freire Albuterol Not-Taking Meclizine HCl Not-Jean Pierre cox tiZANidine HCl 4 MG TAKE 1 TABLET BY VILMA TWICE A DAY Oral for 30 Not-Carla freire Lisinopril 5 MG 2 tablet Orally Once a day Active Vitamin D 1000 UNIT 1 tablet Orally Once a day Active Meloxicam 15 MG Oral for 30 No t-Taking traZODone HCl 50 MG Oral for 30 Not-Taking Immunizations Vaccine Route Administration Date Status Comme nts Influenza Unknown 07/04/2018 Refused Influenza Unknown 07/27/2021 Refused Influenza Unknown 07/18/2022 Refused Social History Tobacco Use: Social History Observation [...] Points 1 Interpretation Negative Section Notes: Nonsmoker; no sig alcohol Nonsmoker; no sig alcohol Nonsmoker; she describes hav ing a 6 pack of beer about every other weekend. Nonsmoker; she describes hav ing a 6 pack of beer about every other weekend in the past, but now only occ. EtOH as of the 07/27/2021 OV Nonsmoker; she describes hav ing a 6 pack of beer about every other weekend in the past, but now only occ. EtOH as of the 07/27/2021 OV Nonsmoker; she describes hav ing a 6 pack of beer about every other weekend in the past, but now only occ. EtOH as of the 07/27/2021 OV Nonsmoker; she describes hav ing a 6 pack of beer about every other weekend in the past, but now only occ. EtOH as of the 07/27/2021 OV Nonsmoker; she describes hav ing a 6 pack of beer about every other weekend in the past, but now only occ. EtOH as of the 07/27/2021 OV Nonsmoker; she describes hav ing a 6 pack of beer about every other weekend in the past, but now only occ. EtOH as of the 07/27/2021 OV Problems Problem Type SNOMED Code ICD Code Onset Dates Problem Status W/U Status Risk Notes Problem 053297395 Cali's esophagus without dysplasia (K22.70) Active confirmed Problem 42961465 Abdominal pain, epigastric (R10.13) Active confirmed Problem 306956313 Elevated liver function tests (R79.89) Active confirmed Problem 004812299 Gastroesophageal reflux disease without esophagitis (K21.9) Active confirmed Problem 634502589 Fatty liver (K76.0) Active confirmed Problem 798158756 Gastroesophageal reflux disease, esophagitis presence not specified (K21.9) Active confirmed Problem 98178547 Constipation, unspecified constipation type (K59.00) Active confirmed Problem Cali esophagus (928417077) Cali esophagus (K22.70) Active confirmed Problem 680825627 Irritable bowel syndrome with constipation (K58.1) Active confirmed Problem 521418194 Helicobacter pylori gastrointestinal tract infection (A04.8) Active confirmed Problem 897628008 Gastroesophageal reflux disease, unspecified whether esophagitis present (K21.9) Active confirmed Problem Gastroesophageal reflux disease (022220953) Chronic GERD (K21.9) Active confirmed Vital Signs Temperature 98.6 degrees Fahrenheit 11/13/2023 Blood pressure diastolic 00 mm Hg 05/27/2024 Height 5 ft 1 in in 05/27/2024 Blood pressure systolic 00 mm Hg 05/27/2024 Weight 195 lbs 05/27/2024 BMI 36.84 kg/m2 05/27/2024 Encounters Encounter Location Date Provider Diagnosis [facility] [address] [place] [id number] 11/23/2023 Demian Santos Chronic GERD K21.9 ; Hiatal hernia K44.9 ; Other diseases of stomach and duodenum K31.89 ; Cali esophagus K22.70 and Abdominal pain R10.9 [facility] [address] [place] [phone] 11/13/2023 Demian Santos Gastroesophageal ref lux disease, esophagitis presence not specified K21.9 ; Cali's esophagus without dysplasia K22.70 and Irritable bowel syndrome with constipation K58.1 [facility] [address] [phone] 05/27/2024 Demian Santos Gastroesophageal ref lux disease, esophagitis presence not specified K21.9 ; Abdominal pain, epigastric R10.13 ; Constipation, unspecified constipation type K59.00 ; Fatty liver K76.0 ; Elevated liver function tests R79.89 ; Cali's esophagus without dysplasia K22.70 and Irritable bowel syndrome with constipation K58.1 [facility] [address] [place] [phone] 11/13/2023 Demian Santos [facility] [address] [place] [phone] 11/26/2023 Demian Santos [facility] [address] [place] [phone] 11/30/2023 Demian Santos Assessments Encounter Date Diagnosis (ICD Code) Assessment Notes Treatment Notes Treatment Clinical Notes Section Notes 11/23/2023 Hiatal hernia (ICD-10 - K44.9) 11/23/2023 Chronic GERD (ICD-10 - K21.9) 11/13/2023 Cali's esophagus without dysplasia (ICD-10 - K22.70) Overall, Lina appears well. Her reflux seems to be reasonably well-controlle d on her daily 40 mg omeprazole. We did review that obviously diet and weight play an important role in reflux symptoms and she needs to try to avoid any fatty foods, overeating, and alcohol. I did recommend a followup upper endoscopy in regard to her Cali's esophagus. I will also plan to obtain followup gastric biopsies in regard to the H. pylori infection. Full consent was obtained for the procedure, including risks of bleeding and perforation. The procedure will be done with monitored anesthesia care. In regard to her chronic constipation, I reviewed with her the need to remain on MiraLax on a regular and daily basis once or twice a day. I encouraged her to maintain a healthy diet with plenty of fruits, vegetables, and water. I also advised her to try to exercise somewhat. In regard to the fatty liver, the most recent liver profile several months ago was normal which is certainly encouraging. We did review that diet and weight play a major role in this condition as well. I did advise her to avoid alcohol completely. Lina was comfortable with this plan. Thank you again for allowing me to participate in Lina's care. I shall continue to keep you advised of her progress. 11/13/2023 Gastroesophageal reflux disease, esophagitis presence not specified (ICD-10 - K21.9) Overall, Lina appears well. Her reflux seems to be reasonably well-controlle d on her daily 40 mg omeprazole. We did review that obviously diet and weight play an important role in reflux symptoms and she needs to try to avoid any fatty foods, overeating, and alcohol. I did recommend a followup upper endoscopy in regard to her Cali's esophagus. I will also plan to obtain followup gastric biopsies in regard to the H. pylori infection. Full consent was obtained for the procedure, including risks of bleeding and perforation. The procedure will be done with monitored anesthesia care. In regard to her chronic constipation, I reviewed with her the need to remain on MiraLax on a regular and daily basis once or twice a day. I encouraged her to maintain a healthy diet with plenty of fruits, vegetables, and water. I also advised her to try to exercise somewhat. In regard to the fatty liver, the most recent liver profile several months ago was normal which is certainly encouraging. We did review that diet and weight play a major role in this condition as well. I did advise her to avoid alcohol completely. Lina was comfortable with this plan. Thank you again for allowing me to participate in Lina's care. I shall continue to keep you advised of her progress. 05/27/2024 Abdominal pain, epigastric (ICD-10 - R10.13) Use the Dicyclomine and Gas-X for the abdominal pain, bloating, and gas. Try to keep the BM's moving regularly Lina appears well from a clinical standpoint. We [...] are stable I will plan to see Lina in one year for a followup visit. I did advise her to certainly call should she have any problems or questions I can be of assistance with in the interim. Lina was comfortable with this plan. Thank you again for allowing me to participate in Lina's care. I shall continue to keep you advised of her progress. 05/27/2024 Gastroesophageal reflux disease, esophagitis presence not specified (ICD-10 - K21.9) Use the omeprazole daily Lina appears well from a clinical standpoint. We [...] are stable I will plan to see Lina in one year for a followup visit. I did advise her to certainly call should she have any problems or questions I can be of assistance with in the interim. Lina was comfortable with this plan. Thank you again for allowing me to participate in Lina's care. I shall continue to keep you advised of her progress. 11/23/2023 Other diseases of stomach and duodenum (ICD-10 - K31.89) 11/13/2023 Irritable bowel syndrome with constipation (ICD-10 - K58.1) Use Miralax twice a day on a regular basis. Eat fruits and vegetables every day with a lot of water. Overall, Lina appears well. Her reflux seems to be reasonably well-controlle d on her daily 40 mg omeprazole. We did review that obviously diet and weight play an important role in reflux symptoms and she needs to try to avoid any fatty foods, overeating, and alcohol. I did recommend a followup upper endoscopy in regard to her Cali's esophagus. I will also plan to obtain followup gastric biopsies in regard to the H. pylori infection. Full consent was obtained for the procedure, including risks of bleeding and perforation. The procedure will be done with monitored anesthesia care. In regard to her chronic constipation, I reviewed with her the need to remain on MiraLax on a regular and daily basis once or twice a day. I encouraged her to maintain a healthy diet with plenty of fruits, vegetables, and water. I also advised her to try to exercise somewhat. In regard to the fatty liver, the most recent liver profile several months ago was normal which is certainly encouraging. We did review that diet and weight play a major role in this condition as well. I did advise her to avoid alcohol completely. Lina was comfortable with this plan. Thank you again for allowing me to participate in Lina's care. I shall continue to keep you advised of her progress. 05/27/2024 Constipation, unspecified constipation type (ICD-10 - K59.00) Use Miralax twice a day Lina appears well from a clinical standpoint. We [...] are stable I will plan to see Lina in one year for a followup visit. I did advise her to certainly call should she have any problems or questions I can be of assistance with in the interim. Lina was comfortable with this plan. Thank you again for allowing me to participate in Lina's care. I shall continue to keep you advised of her progress. 11/23/2023 Cali esophagus (ICD-10 - K22.70) 05/27/2024 Fatty liver (ICD-10 - K76.0) Try to lose weight with the Wegovy and avoid alcohol Lina appears well from a clinical standpoint. We [...] are stable I will plan to see Lina in one year for a followup visit. I did advise her to certainly call should she have any problems or questions I can be of assistance with in the interim. Lina was comfortable with this plan. Thank you again for allowing me to participate in Lina's care. I shall continue to keep you advised of her progress. 11/23/2023 Abdominal pain (ICD-10 - R10.9) 05/27/2024 Elevated liver function tests (ICD-10 - R79.89) Lina appears well from a clinical standpoint. We [...] are stable I will plan to see Lina in one year for a followup visit. I did advise her to certainly call should she have any problems or questions I can be of assistance with in the interim. Lina was comfortable with this plan. Thank you again for allowing me to participate in Lina's care. I shall continue to keep you advised of her progress. 05/27/2024 Cali's esophagus without dysplasia (ICD-10 - K22.70) Repeat the upper endoscopy in 2026. Lina appears well from a clinical standpoint. We [...] are stable I will plan to see Lina in one year for a followup visit. I did advise her to certainly call should she have any problems or questions I can be of assistance with in the interim. Lina was comfortable with this plan. Thank you again for allowing me to participate in Lina's care. I shall continue to keep you advised of her progress. 05/27/2024 Irritable bowel syndrome with constipation (ICD-10 - K58.1) Lina appears well from a clinical standpoint. We [...] are stable I will plan to see Lina in one year for a followup visit. I did advise her to certainly call should she have any problems or questions I can be of assistance with in the interim. Lina was comfortable with this plan. Thank you again for allowing me to participate in Lina's care. I shall continue to keep you advised of her progress. Plan Of Treatment Pending Test Test Name Order Date LIVER PROFILE 12/28/2021 LIVER PROFILE 07/18/2022 LIVER PROFILE 04/26/2022 LIVER PROFILE 01/07/2021 LIVER PROFILE 07/27/2021 IRON + IBC (FE) 01/07/2021 CBC w DIFF 07/27/2021 PROTHROMBIN TIME (PT, INR) 01/07/2021 PROTHROMBIN TIME (PT, INR) 07/27/2021 CERULOPLASMIN 01/07/2021 MITOCHONDRIAL AB 01/07/2021 SMOOTH MUSCLE ANTIBODIES 01/07/2021 US LIVER BIOPSY CORE GUIDE 07/27/2021 FLUOR. ANTINUCLEAR AB SCREEN (WLATER) 12/25 HCV LIVER FIBROSIS, FIBRO TEST Partial Thromboplastin Time 07/27/2021 Liver Panel 04/12/2021 Ferritin 01/07/2021 Future Test Test Name Order Date UPPER GI ENDOSCOPY 07/04/2018 UPPER GI ENDOSCOPY 01/07/2021 UPPER GI ENDOSCOPY 11/13/2023 Next Appt Details Provider Name:Demian Ankit Santos , 05/28/2025 10:00:00 AM, [address], [address], [place], [address], Insurance Providers Payer Name Payer Address Payer Phone Subscriber Number Group Number Insured Name Patient Relationship to Insured Coverage Start Date Coverage End Date [facility] [address] [place] [address] [id number] GONZALEZYOSELYN GARCIALINA Self - patient is the insured Medical (General) History Medical History History ICD Code Asthma Denies CO,DM,CVA,renal disease GERD--EGD at [facility]--approx 2014--told of hiatal hernia Hypertension Fatty liver with elevated LF Ts--negative hepatitis B and C serologies other than a positive hepatitis B surface antibody; complete liver workup was negative in 2020; LFTs became significantly elevated in March of 2021 in relation to some alcohol with an ALT of 218 and AST of 129--her iron saturation was 27% at that time with an iron of 88 and a ferritin of 559; her ferritin had been 222 in December 2020. She underwent a liver biopsy in in August 2021 with the finding of only mild inflammatory changes and only minimal fibrosis in relation to what was felt to be fatty liver and CARDENAS GERD with associated Cali 's esophagus--EGD in 12/2020 revealed a small hiatal hernia, mild changes of reflux but no esophagitis, small area of Cali's esophagus without dysplasia, and gastritis with H. pylori. Gastritis and H. pylori seen on 12/2020 E GD Upper endoscopy in October of 2023 revealed her known small hiatal hernia, changes of reflux but biopsies were negative for Cali's esophagus/intestinal metaplasia, and gastric biopsies were negative for H. pylori. There was no ulcer disease nor significant gastritis Surgical History Surgery Date(Month/Year) Vocal cord surgery(polyps) 2013 Cholecystectomy for gallstones in 08/2018 -Dr. Murray
--- NOTE | 2024-11-06 11:50 | MHC.OFFVISWM ---
VS Expanded 11/06/24 12:13 Height 5 ft 1 in Weight 184 lb 2 oz BMI 34.8 Body Fat % 39.5 Body Fat Mass 72.8 Fat Free Mass 111.4 Visceral Fat Rating 9 Body Water % 43.4 Body Water Mass 79.8 Basal Metabolic Rate/Score 1,549 Intake Visit Reasons: TV R[facility]GING [facility] *SEE COMMENTS* Allergies No Known Allergies Allergy (Verified 11/06/24 11:50) Medication List - Last Reconciled 11/06/24 by Irvin Miles MD albuterol sulfate 90 mcg/actuation 2 puffs inhalation Q6H PRN cholecalciferol (vitamin D3) 25 mcg PO DAILY linaclotide (Linzess) 72 mcg PO DAILY meclizine 12.5 mg PO TID PRN omeprazole 20 mg PO DAILY spironolactone 50 mg PO BID trazodone 50 - 100 mg PO BEDTIME PRN HPI HPI TV RIGGING [facility] *SEE COMMENTS*: Details: Start time: 11.40pm, End time: 12.32pm ?I spent 47 minutes speaking with the patient on the phone plus an additional 5 minutes reviewing and updating records for a total of 52 minutes HPI Comments Details: [place] efforts[place] [facility] [facility] 6 months (15lbs) Wakes up: 7am, Sleeps: 11pm Breakfast: 4/week at 10am (eggs, toast, avocado) Lunch: 2pm (Smoothies or fruits) Dinner: 6pm (rice, salad, meat) Snacks: 4pm (candy), 8pm (jello, fruit) Exercise: has a stationary bike and treadmill at home Fluids: Coffee (1-2/day with Splenda with creamer, or black), hot and ice tea: 2-3/wk ([place]), soda: 1/month, juice: none, ETOH: 2/month Tests reviewed: 2021 liver biopsy: CARDENAS 2020 and 2023 EGD and path reports: diaphragmatic hernia with esophagitis and [facility] Medical History (Updated 11/06/24 @ 12:28 by Irvin Miles MD) CARDENAS (nonalcoholic steatohepatitis) Insomnia IBS (irritable bowel syndrome) PCOS (polycystic ovarian syndrome) Obesity Cali esophagus Hiatal hernia HTN (hypertension) Asthma Fatty liver hemorrhage Epidural anesthesia-induced headache during labor and delivery Spina bifida Scoliosis GERD (gastroesophageal reflux disease) Vitamin D deficiency Vocal cord polyp Cholecystectomy planned Fibromyalgia Vertigo Surgical History History of liver biopsy History of esophagogastroduodenoscopy (EGD) Hx laparoscopic cholecystectomy History of vocal cord polypectomy H/O vaginal surgery Family History Mother Lymphoma Diabetes Father HTN (hypertension) Maternal Uncle Lymphoma Social History Alcohol intake: current Alcohol intake frequency: holidays/special occasions only Patient Tobacco Use Status: Never used Tobacco Second Hand Smoke Exposure: No Female Reproductive History Menstrual Age of Menarche: 13 Telehealth Telehealth Telehealth Platform: Telephone Location of provider rendering services: practice address Location of patient: address on file Patient Identification confirmed using: Name, : Yes Telehealth method: voice only Patient verbally consented to treatment: Yes Patient verbally consented to billing insurance company: Yes Patient informed of any privacy concerns related to visit: Yes Minutes spent on Phone/Video with Pt.: 52 Assessment & Plan Assessment & Plan (1) Obesity: Code(s): E66.9 - Obesity, unspecified Category: Medical Qualifiers: Obesity type: due to excess calories Obesity classification: adult class 1 (BMI 30 - 34.9) Serious obesity comorbidity presence: with serious comorbidity Body mass index: BMI 34.0-34.9 Qualified Code(s): E66.811 - Obesity, class 1; E66.09 - Other obesity due to excess calories; Z68.34 - Body mass index [BMI] 34.0-34.9, adult Plan: 1. We discussed in detail the available therapeutic options: 1) our lifestyle intervention program. We discussed about the use of our [employer] software jami for the meal and exercise plan. 2) She has used [employer] already for 6 months and recently it was not authorized. I don;t think this will be adequate to lose 60 lbs that she needs to lose and also address the diaphragmatic hernia that she has. 3) We also discussed about the?? lap sleeve gastrectomy. I think that would be the best option given she has a diaphragmatic hernia with active esophagitis and history of Cali's esophagus, because we could address both problems with one operation and achieve the weight loss that she needs. I emphasized the importance of close follow-up, adherence to instructions and good communication. The surgery does not replace the need to change your lifestlyle which is the cause of the obesity problem. The surgery provides the motivation to try again to change your lifestyle, it reduces the appetite and make the transition to a better lifestyle easier and doubles the amount of weight you would lose compared to doing the lifestyle change without the surgery. You will need to be on a liquid diet with protein shakes for 2 weeks before surgery to maximize weight loss and boost your nutritional status to recover better from surgery and also for the first two weeks after surgery to let the stomach heal before we introduce other foods. After the first 2 weeks we will introduce protein bars and soft foods like scrambled eggs, cottage cheese and yogurt and after the 6th week will introduce meat, fish and cooked vegetables in small amounts. Over time you should be able to eat everything in small amounts. Side effects like nausea, vomiting, heartburn or abdominal pain are not common in the practice unless you are not following in the practice. This operation requires lifetime commitment to following in our practice and communication with me. You will much less weight and experience side effects if you don?t communicate or not following in the practice. Complications are rare and in our practice is about 1/10 of the national average. The patient will consider these options and she will get back to me with her decision.
[2024-11-06 12:13] VITALS: BMI 34.8
== END 2024-11-06 12:33 | disposition home or self-care (01) ==
LOC: HO.HBS 07:53
PROVIDERS: PCP Internal Medicine; Visit Provider Surgery
DX: E66.811 Obesity, class 1 (principal); Z68.34 Body mass index [BMI] 34.0-34.9, adult
CPT/HCPCS: 98010

== ENCOUNTER 2024-11-09 08:09 | Emergency (ER) | payer OTHER, SELFPAY ==
--- NOTE | ~2024-11-09 | XR_ITS ---
CLINICAL HISTORY: chest pressure 1 view chest x-ray Comparison: CR/AL/SR - XR CHEST 2V - 12/13/23 08:04 EDT Findings: The lungs are clear. Heart size is normal. No acute fracture. IMPRESSION: 1. No acute findings. This document has been electronically signed by: Jn Umana MD on 11/09/2024 09:38:30
--- NOTE | 2024-11-09 08:10 | ECG_ITS ---
Test Reason : CHEST PAIN Blood Pressure : */* mmHG Vent. Rate : 80 BPM Atrial Rate : 80 BPM P-R Int : 142 ms QRS Dur : 110 ms QT Int : 356 ms P-R-T Axes : 52 -11 6 degrees QTcB Int : 410 ms Normal sinus rhythm Incomplete right bundle branch block Nonspecific T wave abnormality Abnormal ECG When compared with ECG of 14-Feb-2016 09:36, No significant change was found Referred By: Generic ED Physician Electronically Signed By: MARINA CHISHOLM
[2024-11-09 08:18] VITALS: BP 125/81; PULSE 79; RESP 17; TEMP 37; O2SAT 100; BMI 35.0
[2024-11-09 08:37] LABS: Basophils Percent Auto 0.7 % (0-2); Eosinophils Absolute Auto 0.2 X10*3/uL (0.0-0.4); Eosinophils Percent Auto 3.3 % (0-4); Hematocrit 38.1 % (37.0-47.0); Hemoglobin 12.7 g/dl (12.0-16.0); Imm Gran Abs Auto 0.01 X10*3/uL (0.00-0.03); Imm Gran Pct Auto 0.2 % (0.0-0.4); Lymphocytes Absolute Auto 2.3 X10*3/uL (1.2-4.9); Lymphocytes Percent Auto 38.1 % (20-40); MANUAL DIFF FLAG NO; Mean Corpuscular HGB Conc 33.3 g/dl (31.0-35.0); Mean Corpuscular Volume 81.1 fL (80.0-98.0); Mean Platelet Volume 10.1 fL (9.4-12.3); Monocytes Absolute Auto 0.6 X10*3/uL (0.1-1.2); Neutrophils Absolute Auto 2.9 x10*3/uL (2.0-8.3); Neutrophils Percent Auto 47.7 % (45-73); Platelet Count 301 X10*3/uL (160-400); Red Cell Distribution Width 14.2 % (11.0-16.0); White Blood Count 6.1 X10*3/uL (4.8-10.8)
[2024-11-09 08:53] LABS: Anion Gap 12 (12-20); Blood Urea Nitrogen 9 mg/dL (9-16); Calcium 8.9 mg/dL (8.4-10.2); Carbon Dioxide 25 mmol/L (22-29); Chloride 106 mmol/L (96-108); Creatinine Clr Calc Pharmacy 98.6; Estimated Glomerular Filt Rate > 60; Glucose Random 95 mg/dL (60-115); Potassium 3.7 mmol/L (3.3-5.1); Sodium 139 mmol/L (135-145)
--- NOTE | 2024-11-09 09:02 | ED_ITS ---
HPI - Chest Pain General Chief Complaint: Chest Pain Stated Complaint: chest pain Time Seen by Provider: 11/09/24 09:02 Source: patient Mode of arrival: ambulatory Limitations: no limitations History of Present Illness ED Provider: Cate Chao PA-C HPI narrative: Patient is a 39 year old female with a past medical history of asthma, GERD, PCOS, and HTN who presents to the ED for complaints of chest pain. She states that she began experiencing cough, congestion, and increased SOB with exertion about 2 weeks ago for which she has been utilizing her albuterol inhaler. 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 She states the pain is located to the left upper chest, tight in nature, non radiating, and increases with exertion. No recent travel, surgeries, or immobilization. She endorses mild abdominal discomfort consistent with her GERD that she is being treated for. She denies syncope, nausea, vomiting, diarrhea, constipation, dysuria, hematuria. Patient states that she just wanted to make sure everything was OK before her tummy tuck procedure upcoming. MD complaint: chest pain Pertinent past history: asthma Onset (ago): day(s) Timing of current episode: episodic Onset: during rest and during exertion Pain location: left chest Pain radiation: none Quality: tightness Relieving factors: rest Exacerbating factors: exertion Context: recent illness Associated symptoms: dyspnea Treatment prior to arrival: none Risk Factors Coronary artery disease risk factors: hypertension Related Data Home Medications ?Medication ?Instructions ?Recorded ?Confirmed albuterol sulfate 90 mcg/actuation 2 puff inhalation Q6H PRN 11/26/20 11/06/24 aerosol inhaler Shortness Of Breath cholecalciferol (vitamin D3) 25 25 mcg PO DAILY 11/26/20 11/06/24 mcg (1,000 unit) capsule omeprazole 20 mg capsule,delayed 20 mg PO DAILY 11/26/20 11/06/24 release meclizine 12.5 mg tablet 12.5 mg PO TID PRN vertigo 11/21/23 11/06/24 trazodone 50 mg tablet 50 - 100 mg PO BEDTIME PRN Insomnia 11/21/23 11/06/24 linaclotide 72 mcg capsule 72 mcg PO DAILY 10/29/24 11/06/24 (Linzess) spironolactone 50 mg tablet 50 mg PO BID 10/29/24 11/06/24 Allergies Allergy/AdvReac Type Severity Reaction Status Date / Time No Known Allergies Allergy Verified 11/09/24 08:20 Review of Systems 2 Constitutional: Constitutional: Reports no additional constitutional complaints, Denies chills, Denies fever(s) and Denies night sweats Eyes: Eyes: Reports no additional eye complaints, Denies blurry vision, Denies change in vision, Denies diplopia, Denies eye discharge, Denies loss of vision and Denies eye pain ENT: Denies dizziness Cardiovascular: Cardiovascular: Reports no additional cardiovascular complaints, Reports chest pain, Denies lightheadedness, Denies Loss of Consciousness and Reports dyspnea Respiratory: Respiratory: Reports no additional respiratory complaints and Reports dyspnea Gastrointestinal: Gastrointestinal: Reports no additional gastrointestinal complaints, Reports abdominal pain, Denies melena, Denies hematochezia, Denies change in bowel habits and Denies change in stool character Genitourinary: Genitourinary: Denies hematuria, Denies urinary frequency, Denies dysuria, Denies urinary incontinence, Denies urinary hesitancy and Denies urinary urgency Musculoskeletal: Musculoskeletal: Reports no additional musculoskeletal complaints, Denies numbness and Denies tingling Neurologic: Denies dizziness, Denies loss of vision, Denies numbness and Denies tingling Psychiatric: Psychiatric: Reports no additional psychiatric complaints Endocrine: Endocrine: Reports no additional endocrine complaints Hematologic/Lymphatic: Hematologic/Lymphatic: Reports no additional hematologic/lymphatic complaints Allergic/Immunologic: Allergic/Immunologic: Reports no additional allergic/immunologic complaints PMFSH Past Medical History Attestation statement: The following information was validated with the patient. Source: old records reviewed and nursing notes reviewed Medical History CARDENAS (nonalcoholic steatohepatitis) Insomnia IBS (irritable bowel syndrome) PCOS (polycystic ovarian syndrome) Obesity Cali esophagus Hiatal hernia HTN (hypertension) Asthma Fatty liver hemorrhage Epidural anesthesia-induced headache during labor and delivery Spina bifida Scoliosis GERD (gastroesophageal reflux disease) Vitamin D deficiency Vocal cord polyp Cholecystectomy planned Fibromyalgia Vertigo Surgical History History of liver biopsy History of esophagogastroduodenoscopy (EGD) Hx laparoscopic cholecystectomy History of vocal cord polypectomy H/O vaginal surgery Family History Family History Mother Lymphoma Diabetes Father HTN (hypertension) Maternal Uncle Lymphoma Social History Social History Alcohol intake: current Alcohol intake frequency: holidays/special occasions only Patient Tobacco Use Status: Never used Tobacco Smoked in Last 30 Days: No Second Hand Smoke Exposure: No Use of substances other than those prescribed or required for medical reasons: No Advance Directives: No Advance Directives Information Provided: Yes Do you have a plan to hurt others: No Plan Physical Exam 2 Vital Signs: Vital Signs: Last Vital Signs Temp 98.2 F 11/09/24 10:01 Pulse 84 11/09/24 10:01 Resp 12 11/09/24 10:01 BP 103/73 11/09/24 10:01 Pulse Ox 98 11/09/24 10:01 O2 Del Method Room Air 11/09/24 10:01 BMI result Body Mass Index 35.0 Const: General: cooperative, no acute distress, alert and awake Nutritional Appearance: well nourished Orientation/consciousness: patient oriented x3 Limitations: no limitations HEENT: Head: Yes normal to inspection and Yes atraumatic Ears: hearing grossly normal bilaterally and external ears normal General nose exam: Normal external nose present, no nasal discharge noted and no epistaxis Face and sinus: Yes normal facial exam, No abrasion and No laceration Mouth: Normal oral and palatal mucosa present, no drooling and no muffled voice Eyes: General: appearance normal, both eyes and all related structures P eriorbital: periorbital findings normal Eyelids: Yes eyelids normal C onjunctivae: conjunctivae normal Pupils: Equal, round and reactive pupils present EOM: EOMs intact bilaterally Neck: Neck: Yes normal visual inspection, Yes full ROM and Yes no lymphadenopathy Chest: Chest palpation & inspection: normal inspection of the chest Resp: Effort & Inspection: normal respiratory effort and able to speak in complete sentences Auscultation: clear to auscultation bilaterally Cardio: Rate: regular rate Rhythm: regular rhythm Heart sounds: S1 normal heart sound present, S2 normal heart sound present, no gallops, no murmurs and no rubs GI: Inspection: Yes normal to inspection Palpation (GI): Soft to palpation, not firm, nontender, no guarding and not rigid Neuro: General: patient oriented x3, moves all extremities and CN's II-XI intact bilaterally Cranial nerves: Yes Equal, round and reactive pupils present Cognition (Neuro): normal cognition Extrem: General: Yes normal to inspection, Yes full ROM and Yes capillary refill normal Psych: Appearance: grossly normal Mental Status: mental status grossly normal Affect: normal affect Attitude: cooperative Thought process: N ormal thought process present Thought content: Normal thought content present Insight: Good insight present (Psych) Medications Administered Discontinued Medications Generic Name Dose Route Start Last Admin Trade Name Freq PRN Reason Stop Dose Admin Albuterol/Ipratropium 3 ml 11/09/24 09:33 11/09/24 09:38 Albuterol/Iprat 2.5/0.5mg 3 Ml Ampul.Neb INHALE 11/09/24 09:34 3 ml ONCE ONE Administration Medical Decision Making Medical Decision Making MDM Narrative: Patient is a 39 year old female with a past medical history of asthma, GERD, HTN, and PCOS who presented to the ED today for chest pain that began Sunday morning in the setting of increased SOB on exertion, cough, and congestion. On presentation, vitals, CBC, and chemistries were within normal limits. CXR shows no consolidations, fractures, or other acute findings. Troponin was under 2.7 and EKG showed normal sinus with no ST elevations and no changes from previous making ACS less likely. She has had no recent travel, surgeries, immobilization, or estrogen use. Wells and PERC score 0 making PE less likely. Her recent symptoms of cough, congestion, increased SOB and chest tightness on exertion are consistent with a mild asthma exacerbation in the setting of an upper respiratory infection. Flu A and B, RSV, SARS-CoV-2 all negative. Patient received 1 duoneb here in the ED. On reevaluation patient continued to appear well and in no acute distress, vitals remained within normal limits, and lung sounds clear. Overall, patient is safe for discharge to home and should continue to rest and utilize her albuterol inhaler as prescribed if needed. I explained my physical exam findings as well as all test results to the patient. I answered all questions asked by the patient. I stressed the importance of the patient taking her medication as directed (either prescribed or as the over the counter packaging recommends). I stressed the importance of the patient following up with her primary care provider. I stressed the importance of the patient returning to the emergency department immediately if her symptoms were to worsen or if she were to develop any dizziness, shortness of breath, difficulty breathing, chest pain, blurry vision, loss of vision, nausea, vomiting, abdominal pain, fever, chills, back pain, or any other complaints. Patient verbalized agreement and understanding with this treatment plan and discharge/transfer. Differential Diagnosis Differential Diagnoses: The differential diagnosis associated with the presentation includes Asthma exacerbation in the setting of recent URI Acute coronary syndrome Pulmonary Embolism Viral illness Admission/Observation Consideration of admission/observation: Escalation of care including admission/observation considered Patient would have been admitted to the hospital had her work up had any findings where hospital admission was appropriate and her clinical presentation warranted hospital admission. Lab Data [facility] Lab Attestation statement: I reviewed the patient's lab results. My interpretation of these results are in the [facility] Rationale portion of this note. 11/09/24 08:30 11/09/24 08:30 Labs: Lab Results 11/09/24 Range/Units 08:30 WBC 6.1 (4.8-10.8) X10*3/uL RBC 4.70 (4.20-5.50) X10*6/uL Hgb 12.7 (12.0-16.0) g/dl Hct 38.1 (37.0-47.0) % MCV 81.1 (80.0-98.0) fL MCH 27.0 (27.0-33.0) pg MCHC 33.3 (31.0-35.0) g/dl RDW 14.2 (11.0-16.0) % Plt Count 301 (160-400) X10*3/uL MPV 10.1 (9.4-12.3) fL Immature Gran % (Auto) 0.2 (0.0-0.4) % Neut % (Auto) 47.7 (45-73) % Lymph % (Auto) 38.1 (20-40) % [place] % (Auto) 10.0 (2-11) % Eos % (Auto) 3.3 (0-4) % Baso % (Auto) 0.7 (0-2) % Lymph # (Auto) 2.3 (1.2-4.9) X10*3/uL [place] # (Auto) 0.6 (0.1-1.2) X10*3/uL Eos # (Auto) 0.2 (0.0-0.4) X10*3/uL Baso # (Auto) 0.0 (0.0-0.2) X10*3/uL Abs Immat Gran (auto) 0.01 (0.00-0.03) X10*3/uL Absolute Neuts (auto) 2.9 (2.0-8.3) x10*3/uL Absolute Nucleated RBC 0.000 (0.0-0.012) X10*3/uL Nucleated RBC % (auto) 0.0 (0.0-0.2) /100WBC Sodium 139 (135-145) mmol/L Potassium 3.7 (3.3-5.1) mmol/L Chloride 106 (96-108) mmol/L Carbon Dioxide 25 (22-29) mmol/L Anion Gap 12 (12-20) BUN 9 (9-16) mg/dL Creatinine 0.76 (0.5-1.4) mg/dL Estim Creat Clear Calc 98.6 Estimated GFR > 60 Random Glucose 95 (60-115) mg/dL Calcium 8.9 (8.4-10.2) mg/dL Troponin I High Sens < 2.7 (<3.5-17.0) ng/L Influenza Type A (PCR) NEGATIVE (Negative) Influenza Type B (PCR) NEGATIVE (Negative) RSV RNA Qual (PCR) NEGATIVE (Negative) SARS-CoV-2 RNA (RT-PCR) NEGATIVE (Negative) Independent Interpretation I performed an independent interpretation of an: EKG and Plain X-Ray Interpretation: My interpretation is in agreement with the radiologist's impression of this imaging study. L CLINICAL HISTORY: chest pressure 1 view chest x-ray Comparison: CR/VT/SR - XR CHEST 2V - 12/13/23 08:04 EDT Findings: The lungs are clear. Heart size is normal. No acute fracture. IMPRESSION: 1. No acute findings. This document has been electronically signed by: Jn Umana MD on 11/09/2024 09:38:30 Dictated By: Jn Umana MD Signed By: Electronically signed by Jn Umana MD 11/09/24 0939 I independently interpreted this EKG and am in agreement with the below findings: Vent. Rate: 80 BPM Atrial Rate: 80 BPM P-R Int: 142 ms QRS Dur: 110 ms QT Int: 356 ms P-R-T Axes: 52 -11 6 degrees QTcB Int: 410 ms Normal sinus rhythm Incomplete right bundle branch block Nonspecific T wave abnormality When compared with ECG of 14-Feb-2016 09:36, No significant change was found Electronically Signed By: DAMIAN CHISHOLM Dictated By: Damian Chisholm MD Signed By: Electronically signed by Damian Chisholm MD 11/09/24 1047 Radiology Impression Discussion of test interpretation with radiology: I have reviewed the radiologist's reading. Chronic Conditions Patient?s care impacted by: Hypertension Discharge Plan Discharge Clinical Impression: Atypical chest pain, Asthma Patient Disposition: Home, Self-Care Instructions: Asthma (DC), Noncardiac Chest Pain (ED) Additional Instructions: Follow up with your primary care provider. Return to the emergency department immediately if your symptoms worsen or if you develop any numbness, tingling, dizziness, shortness of breath, difficulty breathing, chest pain, blurry vision, loss of vision, nausea, vomiting, abdominal pain, fever, chills, back pain, or any other complaints. Please see the information below about our Patient Portal. If you are not yet enrolled in the [facility] Patient Portal, you will receive an enrollment email invitation following your visit to any [facility] setting. You may also self-enroll in the Patient Portal by visiting our website: [email or web address] The following information is required to access the Patient Portal: - Your [facility] Medical Record Number - Your personal home email address (must match what is in your electronic medical record, Registration staff can assist with this) - Name - Date of Capabilities of the Patient Portal: - Message some providers - View upcoming appointments - Access your health summary, medical history, and visit history - View current conditions and allergies - View procedure and lab results - View your medications, including guidelines, side effects, and precautions - Complete pre-appointment questionnaires requested by your provider - Ready summary reports of your office visits and procedures To access the Patient Portal Mobile Go, follow these directions: - Search Incont in the Go Store or GetO2 Store - Download the Go - Search for [facility] - Enter your login/password Prescriptions: No Action trazodone 50 mg tablet 50 - 100 mg PO BEDTIME PRN (Reason: Insomnia) meclizine 12.5 mg tablet 12.5 mg PO TID PRN (Reason: vertigo) cholecalciferol (vitamin D3) 25 mcg (1,000 unit) capsule 25 mcg PO DAILY omeprazole 20 mg capsule,delayed release(DR/EC) 20 mg PO DAILY albuterol sulfate 90 mcg/actuation HFA aerosol inhaler 2 puff inhalation Q6H PRN (Reason: Shortness Of Breath) spironolactone 50 mg tablet 50 mg PO BID Linzess 72 mcg capsule 72 mcg PO DAILY Referrals: Graciela Benson MD [Primary Care Provider] - Interventions: ED Discharge Assessment Last Done: 11/09/24 10:01 Discharge Date/Time: 11/09/24 10:03 Print Language: Argentine
[2024-11-09 09:14] LABS: Influenza A PCR NEGATIVE (Negative); Influenza B PCR NEGATIVE (Negative); Resp Syncy Virus RNA Qual PCR NEGATIVE (Negative); SARS COV2 PCR INHOUSE NEGATIVE (Negative)
[2024-11-09 09:15] VITALS: BP 125/81; PULSE 79; RESP 17; TEMP 37; O2SAT 100
[2024-11-09 09:22] LABS: Troponin-I High Sensitivity < 2.7 ng/L (<3.5-17.0)
[2024-11-09 09:33] VITALS: PULSE 80; RESP 20; O2SAT 100
[2024-11-09] MEDS: Albuterol/Iprat 2.5/0.5MG 3 ML AMPUL.NEB INHALE (09:38)
[2024-11-09 09:47] VITALS: BP 103/73; PULSE 84; RESP 12; O2SAT 98
[2024-11-09 10:01] VITALS: BP 103/73; PULSE 84; RESP 12; TEMP 36.8; O2SAT 98
== END 2024-11-09 10:03 | disposition home or self-care (01) ==
PROVIDERS: Emergency Provider Emergency Medicine; PCP Internal Medicine
DX: R07.89 Other chest pain (principal); J45.909 Unspecified asthma, uncomplicated; R05.9 Cough, unspecified; R06.02 Shortness of breath; Z03.818 Encounter for observation for suspected exposure to other biological agents ruled out
CPT/HCPCS: 0241U; 36415; 71045; 80048; 84484; 85025; 93005; 94640; 99284; 99285

== ENCOUNTER → 2024-11-09 08:10 | Outpatient (BNV) | payer OTHER, SELFPAY | PROVIDERS: Emergency Provider Emergency Medicine; PCP Internal Medicine; Visit Provider Internal Medicine | DX: I45.10 Unspecified right bundle-branch block (principal) | CPT/HCPCS: 93010 ==

== ENCOUNTER → 2024-11-09 08:35 | Outpatient (BNV) | payer OTHER, SELFPAY | PROVIDERS: Emergency Provider Emergency Medicine; PCP Internal Medicine; Visit Provider Radiology Diagnostic Radiology | DX: R07.9 Chest pain, unspecified (principal) | CPT/HCPCS: 71045 ==

== ENCOUNTER 2025-05-04 16:13 | Outpatient (REF) | payer OTHER, SELFPAY ==
--- OUTSIDE RECORDS SUMMARY | 2023-11-23 07:00 | XMS_ITS ---
Author Organization 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 Encounters Encounter Location Date Provider Diagnosis [facility] Outpatient [address] [place] [address] [phone] 11/23/2023 Demian Santos Chronic GERD K21.9 ; Hiatal hernia K44.9 ; Other diseases of stomach and duodenum K31.89 ; Ribeiro esophagus K22.70 and Abdominal pain R10.9 Assessments Encounter Date Diagnosis (ICD Code) Assessment Notes Treatment Notes Treatment Clinical Notes Section Notes 11/23/2023 Chronic GERD (ICD-10 - K21.9) 11/23/2023 Hiatal hernia (ICD-10 - K44.9) 11/23/2023 Other diseases of stomach and duodenum (ICD-10 - K31.89) 11/23/2023 Ribeiro esophagus (ICD-10 - K22.70) 11/23/2023 Abdominal pain (ICD-10 - R10.9) Plan Of Treatment Next Appt Details Provider Name:Demian Santos , 05/28/2025 10:00:00 AM, [address], [address], [place], [address], Progress Notes * SUSAN BELLO B:1985 (40 yo F)Acc No.[id number]:11/23/2023 EGD/MAC Patient: ZORAIDA GUZMAN Provider: Harinder Santos MD :1985 A ge:38 Y S ex:Female Date:11/23/2023 Address:[address] [place] [address] Pcp:Graciela Benson Subjective: * Chief Complaints: * 1 . Gerd,ribeiro's. * Medical History: Objective: * Vitals: Assessment: * Assessment: 1. C hronic GERD - K21.9 (Primary) 2 . H iatal hernia - K44.9 ?3. O ther diseases of stomach and duodenum - K31.89 4 . 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 A bdominal pain - R10.9 Plan: * Treatment: * Procedure Codes: 4 3239 UPPER GI ENDOSCOPY, BIOPSY * * The named appointment provid er may or may not be the originator of this progress note, and it is not deemed complete until electronically signed by the appointment provider. Sign off status: Pending * Provider: Harinder Santos MD Date: 0 11/23/2023 Generated for Roberto freire/Sam/Netoitting on: 0 05/04/2025 06:46 PM EDT
[2025-05-04 16:33] LABS: MANUAL DIFF FLAG NO
[2025-05-04 17:15] LABS: Hematocrit 37.5 % (37.0-47.0); Hemoglobin 12.1 g/dl (12.0-16.0); Imm Gran Abs Auto 0.02 X10*3/uL (0.00-0.03); Imm Gran Pct Auto 0.3 % (0.0-0.4); Lymphocytes Absolute Auto 2.9 X10*3/uL (1.2-4.9); Mean Corpuscular HGB Conc 32.3 g/dl (31.0-35.0); Mean Corpuscular Hemoglobin 26.0 pg (27.0-33.0); Mean Corpuscular Volume 80.6 fL (80.0-98.0); NRBC Abs Auto 0.000 X10*3/uL (0.0-0.012); NRBC Pct Auto 0.0 /100WBC (0.0-0.2); Platelet Count 330 X10*3/uL (160-400); Red Blood Count 4.65 X10*6/uL (4.20-5.50); White Blood Count 7.0 X10*3/uL (4.8-10.8)
[2025-05-04 17:48] LABS: Alanine Aminotransferase 19 U/L (0-31); Albumin Level 4.3 g/dL (3.5-5.0); Alkaline Phosphatase 65 U/L (39-117); Anion Gap 12 (12-20); Aspartate Amino Transferase 22 U/L (5-31); Blood Urea Nitrogen 11 mg/dL (9-16); Calcium 8.8 mg/dL (8.4-10.2); Carbon Dioxide 25 mmol/L (22-29); Chloride 107 mmol/L (96-108); Cholesterol 145 mg/dL (<200); Estimated Glomerular Filt Rate > 60; HDL Cholesterol 65 mg/dL (>40); Potassium 3.9 mmol/L (3.3-5.1); Sodium 140 mmol/L (135-145); Total Protein 7.5 g/dL (6.5-8.0); Triglycerides 77 mg/dL (<150)
--- OUTSIDE RECORDS SUMMARY | 2025-05-04 18:46 | XMS_ITS | Patient Health Record ---
Author Organization [facility] Address [address] [place] [address] Care Team Providers Care Progress Clerk Name Role Phone Graciela Benson Primary Care Provider UnavailDemian Villarreal Unavailable [phone] Allergies No Known Allergies Reason For Referral No Information Medications Medication SIG (Take, Route, Frequency, Duration) Notes Start Date End Date Status Omeprazole 40 MG 1 capsule Orally Onc e a day Active Dicyclomine HCl 10 MG TAKE 1 TO 2 CAPSUL ES BY MOUTH EVERY 6 HOURS NEEDED FOR ABDOMINAL DISCOMFORT for 5 Active Tylenol prn Not-Taking Flovent HFA Not-Taki ng Albuterol Not-Taking Meclizine HCl Not-Ta kenny tiZANidine HCl 4 MG TAKE 1 TABLET BY VILMA TH TWICE A DAY Oral for 30 Not-Taki [...] Problem Status W/U Status Risk Notes Problem 291910569 Cali's esophagus without dysplasia (K22.70) Active confirmed Problem 51948466 Abdominal pain, epigastric (R10.13) Active confirmed Problem 308419785 Elevated liver function tests (R79.89) Active confirmed Problem 604185267 Gastroesophageal reflux disease without esophagitis (K21.9) Active confirmed Problem 859862349 Fatty liver (K76.0) Active confirmed Problem 935168695 Gastroesophageal reflux disease, esophagitis presence not specified (K21.9) Active confirmed Problem 76493989 Constipation, unspecified constipation type (K59.00) Active confirmed Problem Cali esophagus (555709734) Cali esophagus (K22.70) Active confirmed Problem 914124197 Irritable bowel syndrome with constipation (K58.1) Active confirmed Problem 285859502 Helicobacter pylori gastrointestinal tract infection (A04.8) Active confirmed Problem 885058649 Gastroesophageal reflux disease, unspecified whether esophagitis present (K21.9) Active confirmed Problem Gastroesophageal reflux disease (895623962) Chronic GERD (K21.9) Active confirmed Vital Signs Blood pressure diastolic 00 mm Hg 05/27/2024 Height 5 ft 1 in in 05/27/2024 Blood pressure systolic 00 mm Hg 05/27/2024 Weight 195 lbs 05/27/2024 BMI 36.84 kg/m2 05/27/2024 Encounters Encounter Location Date Provider Diagnosis [facility] [address] [place] [address] 05/27/2024 Demian Santos Gastroesophageal ref lux disease, esophagitis presence not specified K21.9 ; Abdominal pain, epigastric R10.13 ; Constipation, unspecified constipation type K59.00 ; Fatty liver K76.0 ; Elevated liver function tests R79.89 ; Cali's esophagus without dysplasia K22.70 and Irritable bowel syndrome with constipation K58.1 Assessments Encounter Date Diagnosis (ICD Code) Assessment Notes Treatment Notes Treatment Clinical Notes Section Notes 05/27/2024 Abdominal pain, epigastric (ICD-10 - R10.13) [...] again for allowing me to participate in Zoriada's care. I shall continue to keep you [...] Test Test Name Order Date LIVER PROFILE 01/07/2021 LIVER PROFILE 07/27/2021 LIVER PROFILE 12/28/2021 LIVER PROFILE 07/18/2022 LIVER PROFILE 04/26/2022 IRON + IBC (FE) 01/07/2021 CBC w DIFF 07/27/2021 PROTHROMBIN TIME (PT, INR) 01/07/2021 PROTHROMBIN TIME (PT, INR) 07/27/2021 CERULOPLASMIN 01/07/2021 MITOCHONDRIAL AB 01/07/2021 SMOOTH MUSCLE ANTIBODIES 01/07/2021 US LIVER BIOPSY CORE GUIDE 07/27/2021 FLUOR. ANTINUCLEAR AB SCREEN (WALTER) 12/25 HCV LIVER FIBROSIS, FIBRO TEST Partial Thromboplastin Time 07/27/2021 Liver Panel 04/12/2021 Ferritin 01/07/2021 Future Test Test Name Order Date UPPER GI ENDOSCOPY 07/04/2018 UPPER GI ENDOSCOPY 01/07/2021 UPPER GI ENDOSCOPY 11/13/2023 Next Appt Details Provider Name:Demian Santos , 05/28/2025 10:00:00 AM, [address] [place] [address], [address], [place], [address], Insurance Providers Payer Name Payer Address Payer Phone Subscriber Number Group Number Insured Name Patient Relationship to Insured Coverage Start Date Coverage End Date [facility] [address] [place] [address] [id number] LISA GARCIA ZORAIDA Self - patient is the insured Medical (General) History Medical History History ICD Code Asthma Denies CA,DM,CVA,renal disease GERD--EGD at [facility]--approx 2014--told of hiatal hernia Hypertension Fatty [...] Surgical History Surgery Date(Month/Year) Vocal cord surgery(polyps) 2014 Cholecystectomy for gallstones in 08/2018 -Dr. Murray
--- OUTSIDE RECORDS SUMMARY | 2025-05-04 18:46 | XMS_ITS | Clinical Summary ---
Demographics Address [address] [place] [address] Home Phone Mobile Phone Email Address Preferred Language es Marital Status Single Judaism Affiliation Unknown Race Other Race Ethnic Group or Author Organization [facility] Address [address] [place] [address] Phone Care Team Providers Care Care Worker Name Role Phone Graciela Benson MD Primary Care Provider [phone] Allergies No known active allergies Medications cholecalciferol (VITAMIN D-3) 50 mcg (2,000 unit) capsule Take 1 capsule (2,000 Units total) by mouth 1 (one) time each day. 3 Active amitriptyline HCl (AMITRIPTYLINE ORAL) Take 20 [...] sertraline HCl (SERTRALINE ORAL) Take by mouth. Activ e omeprazole OTC (PriLOSEC OTC) 20 mg EC tablet Take 1 tablet (20 mg total) by mouth 1 (one) time each day. Active Linzess 145 mcg capsule Take 1 capsule (145 mcg total) by mouth 1 (one) time each day. 5 Active nystatin (MYCOSTATIN) ointment Apply topically 2 (two) times a day. 30 g 2 5 12/18/19 26 Active spironolactone (ALDACTONE) 50 mg tablet Take 1 tablet (50 mg total) by mouth 2 (two) times a day. 5 Active Advair Diskus 250-50 mcg/dose diskus inhaler Inhale 1 puff by mouth 2 (two) times a day. 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 Started on ASA 81mg daily by Dr Sylvester 07/31/17. Encounters Date Type Department Care Team Description 04/02/2025 1:30 PM EDT Office Visit Plastic & Reconstructive Surgery [address] [address] Prerna Donato PA Labial hypertrophy (Primary Dx) 03/17/2025 9:38 AM EDT Anesthesia Event [address] [phone] Ibrahima Roland MD 03/17/2025 9:30 AM EDT - 03/17/2025 12:30 PM EDT Surgery [address] [phone] Fanta Pace MD BREAST REDUCTION [[id number] (CPT )] 03/17/2025 7:46 AM EDT - 03/17/2025 4:06 PM EDT Hospital Encounter [address] [phone] Fanta Pace MD Hypertrophy of breast Discharge Disposition: Home or Self Care 02/16/2025 1:30 PM EDT Office Visit Obstetrics & Gynecology - [address] [phone] Smidy, Suyapa, CNM Encounter for gynecological examination with abnormal finding (Primary Dx); Labial hypertrophy; Class 2 obesity due to excess calories without serious comorbidity with body mass index (BMI) of 35.0 to 35.9 in adult from Last 3 Months Immunizations Name Administration Dates Next Due Hepatitis A-Hepatitis B Adul t (Twinrix) 18yo and older 04/09/2015,11/05/2014,10/08/2014 Influenza Quadravalent, MDCK , 0.5ml, preservative free (Flucelvax) 6mo and older 06/06/2017 Tdap Tetanus diptheria acell ular pertussis (Boostrix; Adacel) 7yo and older 09/28/2017 Surgical History Surgery Date Site/Laterality Comments COSMETIC SURGERY ABDOMINOPLASTY CHOLECYSTECTOMY Medical History Medical History Date Comments Anxiety [...] Essential hypertension DX:Essent ial hypertension Migraines DX:Migraines Neuropathy Family History Medical History Relation Name Comments [...] drink = 0.6 oz pur e alcohol) occ Interpersonal Safety Answer Date Record ed Physical Abuse 03/17/2025 Verbal Abuse 03/17/2025 Comments No Sex and Gender Information Value Date Recorded Sex Assigned at Female 03/16/2025 7:48 AM EDT Legal Sex Female 9:03 AM EST Gender Identity Not on file Sexual Orientation Not on file Obstetrics History * This document contains information received from the source organization and may not represent a complete record from that organization. Para Term AB IAB SAB Ectopic Multiple Livin g Live Births 4 3 3 0 0 0 3 3 Date Outcome GA Total Labor Labor/2nd/3rd Weight Sex Type Anes PTL Arianna A1 A5 Name Clin 2001 Term 40w 0d 3260 g (115 oz) F Vag-S pont Epidur al N Livin g Delivery Location:[facility] 4 2007 Term 37w 4d 3232 g (114 oz) F Vag-S pont Epidur al N Livin g [address] Sujey ballesteros Complications:Rupture of mem branes with delay of delivery Delivery Location:[facility] 2017 Term 41w 4d 3685 g (130 oz) F Vag-S pont N Livin g 8 9 Norah Bishop LEWIS Complications:None Delivery Location:[facility] Last Filed Vital Signs Vital Sign Reading Time Taken Comments Blood Pressure 128/99 04/02/2025 1:19 PM EDT Pulse 102 03/17/2025 1:55 PM EDT Temperature 36.1 C (97 F) 03/17/2025 1:55 PM EDT Respiratory Rate 16 03/17/2025 1:55 PM EDT Oxygen Saturation 99% 03/17/2025 1:55 PM EDT Inhaled Oxygen Concentration - - Weight 81.3 kg (179 lb 3.2 oz) 04/02/2025 1:19 P M EDT Height 154.9 cm (5' 1 ) 04/02/2025 1:19 PM EDT Body Mass Index 33.86 04/02/2025 1:19 PM EDT Plan of Treatment Upcoming Encounters Date Type Department Care Team (Late st Contact Info) Description 06/30/2025 10:00 AM EST Office Visit Plastic & Reconstructive Surgery - [place] [address] [facility] [address] [place] [phone] Prerna Donato PA [address] [place] [phone] Scheduled Procedures Name Priority Associated Diagnoses Date/Ti me LABIAPLASTY Labial hypertrophy Health Maintenance Due Date Last Done Comments Cholesterol Screening (Lipid Panel) 07/30/2022 Social Influencers of Health Screening 07/30/2022 Depression Screening 08/27/2024 COVID-19 Vaccine ( season) 2025 09/26/2021, 11/10/2020 Influenza Vaccine (#1) 2025 7, 05/26/2014, 08/07/2013, Additional history exists Cervical Cancer Screening: HPV 02/07/2026 02/07/2021 DTaP,Tdap,and Td Vaccines (8 - Td or Tdap) 09/28/2027 09/28/2017, 05/09/2011, 11/28/1999, Additional history exists HIB Vaccines Completed 01/25/1989 MMR Vaccines Completed 04/29/1990, 03/11/1987 Varicella Vaccines Aged Out 03/05/1997 No longer eligible based on patient's age to complete this topic IPV Vaccines Completed 06/29/1997, 08/1990, 01/25/1989, Additional history exists Pneumococcal Vaccine: Pediatrics (0 to 5 Years) and At-Risk Patients (6 to 49 Years) Aged Out 02/09/2015 No longer eligible based on patient's age to complete this topic Hepatitis A Vaccines Aged Out 04/09/2015, 11/05/2014, 10/08/2014 No longer eligible based on patient's age to complete this topic Hepatitis B Vaccines Completed 04/09/2015, 11/05/2014, 10/08/2014, Additional history exists HIV Screening Completed 02/07/2021 Hepatitis C Screening Completed 02/07/2021 HPV Vaccines Aged Out No longer eligi ble based on patient's age to complete this topic Meningococcal ACWY Vaccine Aged Out N o longer eligible based on patient's age to complete this topic Meningococcal B Vaccine Aged Out No l onger eligible based on patient's age to complete this topic RSV Immunization Patients Under 20 months Aged Out No longer eligible based on patient's age to complete this topic Procedures Procedure Name Priority Date/Time Associated Diagnosis Comments TISSUE EXAM Routine 03/17/2025 10:40 AM EDT Hypertrophy of breast TH AN ENDOTRACHEAL(NO CHARGE) Routine 03/17/2025 10:18 AM EDT RI BREAST REDUCTION 03/17/2025 9:38 AM EDT Hypertrophy of breast Case Notes HEADLIGHT HPV Routine 02/07/2021 HEPATITIS C SCREENING Routine 02/07/2021 HIV SCREENING Routine 02/07/2021 from Last 3 Months or Most Recently Relevant to Health Maintenance Results * Tissue exam (03/17/2025 10:40 AM EDT) Final Diagnosis A. Right breast tissue, reduction mammoplasty: Benign breast tissue - No atypia or neoplasm identified Grossly unremarkable skin B. Left breast tissue, reduction mammoplasty: Benign breast tissue with adenosis - No atypia or neoplasm identified Grossly unremarkable skin 03/18/2025 10:[address] [facility] Gross Description A. Breast, Right, tissue: Labeled right breast . Received in formalin is a 1395 gram, 26.0 x 18.0 x 7.5 cm aggregate of lobular, fibrofatty portions of breast tissue and strips of grossly unremarkable yung skin. The breast tissue is thinly sliced to show dense, yeah yeah white fibrous tissue and yellow lobular adipose tissue, approximating a 35% fibrous and 65% fatty ratio. Frame Catcher sections are submitted in three cassettes, two pieces each. B. Breast, Left, tissue: Labeled left breast . Received in formalin is a 1513 gram, 28.5 x 18.5 x 8.2 cm aggregate of lobular, fibrofatty portions of breast tissue and strips of grossly unremarkable yung skin. The breast tissue is thinly sliced to show dense, yeah yeah white fibrous tissue and yellow lobular adipose tissue, approximating a 35% fibrous and 65% fatty ratio. Frame Catcher sections are submitted in three cassettes, two pieces each. TS 03/18/2025 10:[address] [facility] Disclaimer Unless otherwise specified, all tissue is 10% NB formalin fixed and paraffin embedded. 03/18/2025 10:[address] [facility] Tissue Left breast structure / Unknown 03/17/2025 10:40 AM EDT 03/17/2025 1:20 PM EDT Tissue specimen (specimen) Left breast structure / Unknown 03/17/2025 10:40 AM EDT 03/17/2025 1:20 PM EDT us Fanta Pace MD LAB PATHOLOGY ORDERABLES Fi nal Result [facility] [address] [place] [address], * TH AN ENDOTRACHEAL(NO CHARGE) (03/17/2025 10:18 AM EDT) Narrative Siria Pace CRNA - 03/17/2025 10:18 AM EDT Siria Pace CRNA 03/17/2025 10:20 AM General Information and Staff Patient location during procedure: OR Performed: resident/SEMICONDUCTOR ENGINEER/CAA Performed by: Siria Pace CRNA Authorized by: Ibrahima Roland MD Intubation Urgency: elective Final Airway Details Successful airway: ETT Cuffed: yes Successful intubation technique: direct laryngoscopy Endotracheal tube insertion site: oral Blade: Joe Blade size: #3 ETT size (mm): 7.5 Cormack-Lehane Classification: grade I - full view of glottis Placement verified by: chest auscultation and capnometry Cuff volume (mL): 10 Measured from: lips ETT to lips (cm): 22 Number of attempts at approach: 1 Ventilation between attempts: BVMFinal airway type: endotracheal airway Indications and Patient Condition Indications for airway management: anesthesia and airway protection Spontaneous ventilation: present Sedation level: Yes Preoxygenated: yes Soft Tissue Damage: No Dentition Unchanged: No Patient position: neutral MILS maintained throughout Mask difficulty assessment: 1 - vent by mask us Ibrahima Roland MD ANESTHESIA ORDERABLES Final Re sult * Cervical Cancer Screening: HPV (02/07/2021) Pathologist [facility] Cervical Cancer Screening: HPV Abstracted, Negative Historical Provider HEALTH MAINTENANCE Final Result * HIV Screening (02/07/2021) Pathologist [facility] HIV Screening Abstracted us Historical Provider HEALTH MAINTENANCE Final Result * Hepatitis C Screening (02/07/2021) Hepatitis C Screening Abstracted us Historical Provider HEALTH MAINTENANCE Final Result from Last 3 Months or Most Recently Relevant to Health Maintenance Insurance * Guarantor: Zoraida Gonzalez Account Type Relation to Patient Date of Phone Billing Address Personal/Family Self 1985 [address] [place] [address] [facility] [employer] Care Teams Care Worker Relationship Specialty Start Date End Date Graciela Benson MD [address] [facility] [address] [place] PCP - General Internal Medicine 10/12/16
--- OUTSIDE RECORDS SUMMARY | 2025-05-04 18:46 | XMS_ITS | Clinical Summary ---
Author Organization [facility] Address [address] [place] [phone] Phone Care Team Providers Care Back Up Scan Coordinator Name Role Phone Graciela Benson MD Primary Care Provider Allergies No known active allergies Medications lisinopril (PRINIVIL,ZESTR IL) 5 MG tablet 2 tablet Acti ve omeprazole (PRILOSEC) 20 MG capsule omeprazole 20 mg capsule,delayed release Active Active Problems Problem Noted Date Diagnosed Date Neck pain 01/16/2023 Upper back pain 01/16/2023 Macromastia 01/16/2023 Family History Medical History Relation Comments Cancer Mother Diabetes Mother Hypertension Mother Relation Status Comments Father Alive Mother Alive Social History Tobacco Use Types Packs/Day Years Used Date Smoking Tobacco: Never Smokeless Tobacco: Never Tobacco Cessation:Counseling Given: Not Answered Alcohol Use Standard Drinks/Week Comments Yes 0 (1 standard drink = 0.6 oz pur e alcohol) Education Answer Date Recorded Are you interested in more education? Not on juan david e 12/23/2022 Are you concerned about learning? Not on file 12/23/2022 No 12/23/2022 No 12/23/2022 Digital Access Answer Date Recorded No 01/16/2023 No 01/16/2023 No 01/16/2023 Reliable internet access at home? Not on file 01/16/2023 Device with a working camera? Not on file Comments Unknown Sex and Gender Information Value Date Recorded Sex Assigned at Not on file Legal Sex Female 9:58 AM EDT Gender Identity Not on file Sexual Orientation Not on file Last Filed Vital Signs Vital Sign Reading Time Taken Comments Blood Pressure - - Pulse - - Temperature - - Respiratory Rate - - Oxygen Saturation - - Inhaled Oxygen Concentration - - Weight 87.7 kg (193 lb 6.4 oz) 01/09/2023 1:02 P M EDT Height 156.2 cm (5' 1.5 ) 01/09/2023 1:02 PM EDT Body Mass Index 35.95 01/09/2023 1:02 PM EDT Plan of Treatment Health Maintenance Due Date Last Done Comments CREATININE LEVEL 1985 POTASSIUM LEVEL 1985 DEPRESSION SCREENING 1998 HEPATITIS C SCREENING 2004 HIV ONE-TIME SCREENING (18-6 5 YEARS) 2004 PAP SMEAR 2007 SCREENING FOR DIABETES 2021 INFLUENZA VACCINE (#1) 2025 06/06/2017 COVID-19 VACCINE ( - 2023-2 5 season) 2025 Adult Td,Tdap Booster 09/28/2027 09/28/2017 HEPATITIS A VACCINES Aged Out 04/09/2015, 11/05/2014, 10/08/2014 No longer eligible based on patient's age to complete this topic SMOKING STATUS SCREENING (On ce After 26 Yrs) Completed 01/09/2023 HIB VACCINES Aged Out No longer eligi ble based on patient's age to complete this topic MENINGOCOCCAL VACCINES (ACWY) Aged Out No longer eligible based on patient's age to complete this topic MENINGOCOCCAL VACCINES (B) Aged Out N o longer eligible based on patient's age to complete this topic PNEUMOCOCCAL VACCINES (0-49 years) Aged Out No longer eligible b ased on patient's age to complete this topic Medical Devices Not on file Insurance [facility] [employer] [facility] [employer] TO[employer]HER [employer] [facility] TOGETHER [facility] TO[employer] Care Teams Back Up Scan Coordinator Relationship Specialty Start Date End Date Graciela Benson MD [address] [place] [address] [place] [phone] PCP - General Internal Medicine 11/22/22 Additional Source Comments The information contained in this document represents components of the legal health record. It is not the complete legal health record.[facility]
== END 2025-05-04 16:14 | disposition home or self-care (01) ==
LOC: HO.LAB 16:13
PROVIDERS: PCP Internal Medicine; Visit Provider Internal Medicine
DX: Z00.00 Encounter for general adult medical examination without abnormal findings (principal); Z91.148 Patient's other noncompliance with medication regimen for other reason; I10 Essential (primary) hypertension; F32.9 Major depressive disorder, single episode, unspecified; E28.2 Polycystic ovarian syndrome
CPT/HCPCS: 36415; 80053; 80061; 85025

== ENCOUNTER 2025-06-28 11:29 | Emergency (ER) | payer OTHER, SELFPAY ==
--- NOTE | ~2025-06-28 | CT_ITS ---
CLINICAL HISTORY: periumbilical mass, hx of abdominoplasty CT abdomen and pelvis with contrast Comparison: None provided Findings: No consolidation or effusion. Unremarkable abdominal organs. Prior cholecystectomy. No bowel obstruction, pneumoperitoneum, or pneumatosis. There is mild focal edema of the soft tissues in the region of the umbilicus. There is no gas or fluid collection. There is an intrauterine device within the endometrial canal. There is a small amount of pelvic free fluid. The appendix is normal. The bones are intact. IMPRESSION: 1. There is mild focal edema of the soft tissues in the region of the umbilicus. 2. There is a small amount of pelvic free fluid. 3. There is an intrauterine device within the endometrial canal. This document has been electronically signed by: Mary Clemons MD on 06/28/2025 16:53:44
--- NOTE | 2025-06-28 11:37 | ED_ITS ---
HPI - Skin/Abscess/Foreign Bdy General Chief complaint: General Medical Stated complaint: lump on belly button Time Seen by Provider: 06/28/25 12:53 Source: patient and RN notes reviewed Mode of arrival: ambulatory Limitations: no limitations History of Present Illness ED Provider: Fanta Coburn PA-C HPI narrative: This is a 40-year-old female, with a past medical history of PCOS, asthma, hypertension, and GERD, who presents emergency department with concerns of a lump above her umbilicus which she noticed 3 weeks ago. Patient also reports intermittent dizziness which occurs with positional changes for the last several weeks. Patient denies any fevers, chills, chest pain, abdominal pain, nausea, vomiting or diarrhea. Patient does report that she has a history of an abdominoplasty and a breast augmentation that was performed in [place]. She states that her abdominoplasty was performed in October by Dr. Stevenson, and breast reduction was performed in February. Patient states that the procedures went well, with no complications or concerns. Patient reports that she has gotten episodes of dizziness which occurs with positional changes. She also reports some mild shortness for breath which occurs at night. She denies any current dizziness or shortness of breath. No chest pain. Denies any abdominal pain, nausea, vomiting or diarrhea. Denies any other complaints or concerns at this time. Related Data Home Medications ?Medication ?Instructions ?Recorded ?Confirmed albuterol sulfate 90 mcg/actuation 2 puff inhalation Q 6H PRN 11/26/20 11/06/24 aerosol inhaler Shortness Of Breath cholecalciferol (vitamin D3) 25 25 mcg PO DAILY 11/06/24 mcg (1,000 unit) capsule omeprazole 20 mg capsule,delayed 20 mg PO DAILY 11/06/24 release meclizine 12.5 mg tablet 12.5 mg PO TID PRN vertigo 0 11/21/23 11/06/24 trazodone 50 mg tablet 50 - 100 mg PO BEDTIME PRN I nsomnia 11/21/23 11/06/24 linaclotide 72 mcg capsule 72 mcg PO DAILY 10/29/24 (Linzess) spironolactone 50 mg tablet 50 mg PO BID 10/29/2410/25 Allergies Allergy/AdvReac Type Severity Reaction Status Date / Time No Known Allergies Allergy Verified 06/28/25 11:51 Review of Systems 2 Review of Systems: Constitutional : No Fever, No Chills ENT/Mouth : No sore throat, No Rhinorrhea Eyes: No Eye Pain, No Swelling, No Redness Cardiovascular : No Chest Pain, No SOB Respiratory : No Cough, No Sputum Gastrointestinal : No Nausea, No Vomiting, No Diarrhea, No abdominal Pain Genitourinary : No Dysuria, No Hematuria Musculoskeletal : No joint pain, No Myalgias, No Joint Swelling Skin : +Skin Lesions Neuro : No Weakness, No Numbness, No Headache All other systems reviewed and are negative Yes all other systems are reviewed and are negative Constitutional: Constitutional: Reports as per [facility] Past Medical History Medical History CARDENAS (nonalcoholic steatohepatitis) Insomnia IBS (irritable bowel syndrome) PCOS (polycystic ovarian syndrome) Obesity Cali esophagus Hiatal hernia HTN (hypertension) Asthma Fatty liver hemorrhage Epidural anesthesia-induced headache during labor and delivery Spina bifida Scoliosis GERD (gastroesophageal reflux disease) Vitamin D deficiency Vocal cord polyp Cholecystectomy planned Fibromyalgia Vertigo Surgical History History of liver biopsy History of esophagogastroduodenoscopy (EGD) Hx laparoscopic cholecystectomy History of vocal cord polypectomy H/O vaginal surgery Family History Family History Mother Lymphoma Diabetes Father HTN (hypertension) Maternal Uncle Lymphoma Social History Social History Alcohol intake: current Alcohol intake frequency: holidays/special occasions only Patient Tobacco Use Status: Never used Tobacco Second Hand Smoke Exposure: No Physical Exam 2 Vital Signs: Vital Signs: Last Vital Signs Temp 98.3 F 06/28/25 17:48 Pulse 78 06/28/25 17:48 Resp 16 06/28/25 17:48 BP 109/77 06/28/25 17:48 Pulse Ox 98 06/28/25 17:48 O2 Del Method Room Air 06/28/25 17:48 BMI result Body Mass Index 33.8 Const: General: cooperative, comfortable and no acute distress O rientation/consciousness: patient oriented x3 Limitations: no limitations HEENT: Head: Yes normal to inspection, Yes normocephalic and Yes atraumatic Ears: hearing grossly normal bilaterally General nose exam: Normal external nose present Face and sinus: Yes normal facial exam Mouth: Normal oral and palatal mucosa present, oropharynx normal and moist mucous membranes Throat: Yes posterior oropharynx normal Eyes: General: appearance normal, both eyes and all related structures E yelids: Yes eyelids normal Conjunctivae: conjunctivae normal Sclerae: s clerae normal Pupils: Equal, round and reactive pupils present EOM: EOMs intact bilaterally Neck: Neck: Yes normal visual inspection, Yes full ROM and Yes no lymphadenopathy Lymphatic: no lymphadenopathy noted Chest: Chest palpation & inspection: normal inspection of the chest Resp: Effort & Inspection: normal respiratory effort and able to speak in complete sentences Auscultation: clear to auscultation bilaterally, no crackles, no rales, no rhonchi and no wheezes Cardio: Rate: regular rate Rhythm: regular rhythm Heart sounds: S1 normal heart sound present and S2 normal heart sound present GI: Inspection: Yes normal to inspection Skin: Other: Just superior to the umbilicus, there is a 2 mm round induration, no overlying skin changes or warmth, no drainage from the umbilicus. Nontender. Mobile General skin exam: no rashes or lesions noted Trauma: no lacerations or abrasions Neuro: General: patient oriented x3 and moves all extremities Cranial nerves: Yes Equal, round and reactive pupils present Extrem: General: Yes normal to inspection Right upper extremity: normal to inspection Left upper extremity: normal to inspection Right lower extremity: normal to inspection Left lower extremity: normal to inspection Course Course Course Narrative: This is a Rapid Medical Exam performed in triage by Rossy Meadows PA-C. Full HPI, ROS and PE to be performed by primary ED provider. 40 yo F w/pmhx HTN, PCOS, GERD, CARDENAS, Asthma presenting to the ED c/o lump to umbilical region x3 weeks. Reports pain with palpation & feels is growing in size. Also reports intermittent dizziness x few weeks PE: No focal deficits. Ambulating with steady gait. + small palpable periumbilical lump. No fluctuance or induration. No warmth. Plan: EKG, labs, UA Medications Administered Discontinued Medications Generic Name Dose Route Start Last Admin Trade Name Freq PRN Reason Stop Dose Admin Iohexol 100 ml 06/28/25 15:33 06/28/25 15:33 Iohexol 350 Mg/Ml 100 Ml Infus..Btl IV 06/28/25 15:34 85 ml ONCE ONE Administration Medical Decision Making Medical Decision Making [facility] Narrative: This is a 40-year-old female, with a past medical history of PCOS, asthma, hypertension, and GERD, who presents emergency department with concerns of a lump above her umbilicus which she noticed 3 weeks ago. On arrival, blood pressure within normal limits. She is speaking full sentences under no acute distress. She is alert and oriented x4. She is neurologically intact with no focal deficits on examination. Given surgeries in February, will obtain D-dimer to rule out PE although this is unlikely given that she is not hypoxic, or tachycardic, no shortness for breath or chest pain at this time. Her lungs are clear to auscultation bilaterally. Her primary concern is this lump above her umbilicus. She also expresses episodic dizziness, not currently dizzy at this moment. She is neurologically intact with no focal deficits. Differential diagnoses include electrolyte derangement, arrhythmia, abscess, cellulitis. We will obtain labs, EKG, CT abdomen and pelvis. She has no urinary symptoms. 6:04 PM 06/28/2025 (Fanta Coburn PA-C): Overall workup today was reassuring, she has no leukocytosis, stable H&H, chemistry revealing no significant electrolyte derangement. No evidence of TAL. Urine with moderate leuk esterases and wbc's however this is contaminated. She is asymptomatic therefore deferring treatment until urine culture returns. Abdomen and pelvis CT returns, does show edema in the soft tissues of the region of the umbilicus. I reviewed this case with my attending physician, Dr. Jeffries. Patient has no overlying erythema or edema. Patient was examined by my attending, no additional workup or treatment required at this time however we encouraged her to follow-up with her plastic surgeon. She is agreeable to this plan. She was given strict return precautions. She understands agrees with plan. Patient stable for discharge. Differential Diagnosis Differential Diagnoses: The differential diagnosis associated with the presentation includes See above Lab Data [facility] Lab Attestation statement: I reviewed the patient's lab results. See [facility] 06/28/25 12:12 06/28/25 12:12 Labs: Lab Results 06/28/25 06/28/25 Range/Units 12:12 14:42 WBC 6.5 (4.8-10.8) X10*3/uL RBC 5.06 (4.20-5.50) X10*6/uL Hgb 13.1 (12.0-16.0) g/dl Hct 40.4 (37.0-47.0) % MCV 79.8 L (80.0-98.0) fL MCH 25.9 L (27.0-33.0) pg MCHC 32.4 (31.0-35.0) g/dl RDW 14.2 (11.0-16.0) % Plt Count 316 (160-400) X10*3/uL MPV 9.6 (9.4-12.3) fL Immature Gran % (Auto) 0.2 (0.0-0.4) % Neut % (Auto) 43.5 L (45-73) % Lymph % (Auto) 39.9 (20-40) % [place] % (Auto) 10.1 (2-11) % Eos % (Auto) 5.7 H (0-4) % Baso % (Auto) 0.6 (0-2) % Lymph # (Auto) 2.6 (1.2-4.9) X10*3/uL [place] # (Auto) 0.7 (0.1-1.2) X10*3/uL Eos # (Auto) 0.4 (0.0-0.4) X10*3/uL Baso # (Auto) 0.0 (0.0-0.2) X10*3/uL Abs Immat Gran (auto) 0.01 (0.00-0.03) X10*3/uL Absolute Neuts (auto) 2.8 (2.0-8.3) x10*3/uL Absolute Nucleated RBC 0.000 (0.0-0.012) X10*3/uL Nucleated RBC % (auto) 0.0 (0.0-0.2) /100WBC D-Dimer High Sensitivty 165 NG/ML Sodium 138 (135-145) mmol/L Potassium 3.7 (3.3-5.1) mmol/L Chloride 105 (96-108) mmol/L Carbon Dioxide 24 (22-29) mmol/L Anion Gap 13 (12-20) BUN 9 (9-16) mg/dL Creatinine 0.64 (0.5-1.4) mg/dL Estim Creat Clear Calc 113.8 Estimated GFR > 60 Random Glucose 85 (60-115) mg/dL Calcium 9.0 (8.4-10.2) mg/dL Magnesium 1.9 (1.6-2.6) mg/dL Total Bilirubin 0.4 (0.0-1.0) mg/dL Direct Bilirubin 0.2 (0.0-0.5) mg/dL AST 22 (5-31) U/L ALT 24 (0-31) U/L Alkaline Phosphatase 72 (39-117) U/L Troponin I High Sens < 2.7 (<3.5-17.0) ng/L Total Protein 7.9 (6.5-8.0) g/dL Albumin 4.5 (3.5-5.0) g/dL Lipase 31 (8-78) U/L Urine Color Yellow Urine Appearance Clear Urine pH 7.0 (5.0-9.0) Ur Specific [place] 1.010 (1.005-1.025) Urine Protein Negative (Neg-Trace) mg/dL Urine Glucose (UA) Negative (Negative) mg/dL Urine Ketones Negative (Negative) mg/dL Urine Blood Negative (Negative) Urine Nitrite Negative (Negative) Ur Leukocyte Esterase Moderate (2+) H (Negative) Urine RBC 0-2 (0-2) /HPF Urine WBC 11-20 H (0-5) /HPF Ur Squamous Epith Cells 6-10 (0-2) /HPF Urine Bacteria Trace (None Seen) Hyaline Casts 0-2 (0-2) /LPF Urine Test NEGATIVE (NEGATIVE) Independent Interpretation I performed an independent interpretation of an: EKG Interpretation: EKG normal sinus rhythm with an incomplete right bundle-branch block, which patient has a history of. AR interval 132, QT QTC 386/440. No STEMI Radiology Impression Discussion of test interpretation with radiology: I have reviewed the radiologist's reading. Radiologist Impression: Findings: No consolidation or effusion. Unremarkable abdominal organs. Prior cholecystectomy. No bowel obstruction, pneumoperitoneum, or pneumatosis. There is mild focal edema of the soft tissues in the region of the umbilicus. There is no gas or fluid collection. There is an intrauterine device within the endometrial canal. There is a small amount of pelvic free fluid. The appendix is normal. The bones are intact. IMPRESSION: 1. There is mild focal edema of the soft tissues in the region of the umbilicus. 2. There is a small amount of pelvic free fluid. 3. There is an intrauterine device within the endometrial canal. This document has been electronically signed by: Mary Clemons MD on 06/28/2025 16:53:44 Dictated By: Mary Clemons MD Discharge Plan Discharge Clinical Impression: Abdominal lump, Dizziness Patient Disposition: Home, Self-Care Instructions: Dizziness (ED) Additional Instructions: You were seen in the emergency department due to concerns for a lump above your belly button. You have some edema which is swelling of the soft tissues in the region of the belly button. This does not appear to be infectious. This may be due to the surgery you had in October therefore I am recommending you follow-up with your plastic surgeon, Dr. Stevenson. I am also recommending you follow-up with your primary care physician in regards to this visit. Your blood work is otherwise reassuring, please drink plenty of fluids, get plenty of rest. If any new or worsening symptoms occur including but not limited to worsening dizziness, severe chest pain, shortness of breath, please seek emergent care. Your urine appears to be contaminated, given that you are asymptomatic, we will await the urine culture to return to see if you need to be treated for urinary tract infection. Prescriptions: No Action trazodone 50 mg tablet 50 - 100 mg PO BEDTIME PRN (Reason: Insomnia) meclizine 12.5 mg tablet 12.5 mg PO TID PRN (Reason: vertigo) cholecalciferol (vitamin D3) 25 mcg (1,000 unit) capsule 25 mcg PO DAILY omeprazole 20 mg capsule,delayed release(DR/EC) 20 mg PO DAILY albuterol sulfate 90 mcg/actuation HFA aerosol inhaler 2 puff inhalation Q6H PRN (Reason: Shortness Of Breath) spironolactone 50 mg tablet 50 mg PO BID Linzess 72 mcg capsule 72 mcg PO DAILY Interventions: ED Discharge Assessment Last Done: 06/28/25 17:48 Discharge Date/Time: 06/28/25 17:51 Print Language: Estonian
[2025-06-28 11:50] VITALS: BP 131/83; PULSE 81; RESP 16; TEMP 36.2; O2SAT 99; BMI 33.8
--- NOTE | 2025-06-28 11:53 | ECG_ITS ---
Test Reason : DIZZY Blood Pressure : */* mmHG Vent. Rate : 78 BPM Atrial Rate : 78 BPM P-R Int : 132 ms QRS Dur : 112 ms QT Int : 386 ms P-R-T Axes : 66 8 18 degrees QTcB Int : 440 ms Normal sinus rhythm Incomplete right bundle branch block Borderline ECG When compared with ECG of 09-Nov-2024 08:12, Nonspecific T wave abnormality no longer evident in Anterior leads Referred By: Rossy Meadows Electronically Signed By: Stewart Son
[2025-06-28 12:00] VITALS: BP 127/73; PULSE 78
[2025-06-28 12:04] VITALS: BP 133/86; PULSE 82
[2025-06-28 12:05] VITALS: BP 132/92; PULSE 88
--- OUTSIDE RECORDS SUMMARY | 2025-06-28 12:16 | XMS_ITS | Clinical Summary ---
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 Name Role Phone Graciela Benson MD Primary [...] (#1) 2025 06/06/2017 COVID-19 VACCINE ( - 2024-2 6 season) 2025 Adult Td,Tdap Booster 09/28/2027 09/28/2017 [...] topic Medical Devices Not on file Insurance [facility] [employer] [facility] [employer] [facility] [employer] [facility] TOGETHER [employer] [facility] TO[employer] Care Teams 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 It is not the complete legal health record.[facility]
--- OUTSIDE RECORDS SUMMARY | 2025-06-28 12:17 | XMS_ITS | Data Portability ---
Author Organization [facility] (Prof.) Address [address], [address] [place] [address] Assessment No assessment recorded. Plan of Treatment [...] Diagnosis SNOMED-CT Code Diagnosis ICD10 Code Diagnosis IMO Codes Diagnosis Note [id number] Alfonso Sylvester MD [address] [place] [address] 10/31/2017 11:19:30 10/31/2017 11:19:53 [id number] Alfonso Sylvester MD [address] [place] [address] 12/27/2017 15:25:47 12/27/2017 15:26:15 [id number] Alfonso Sylvester MD [address] [place] [address] 01/08/2018 09:10:10 01/08/2018 09:10:23 Health Concerns Section Related Observation LastModified by Organization Detai ls LastModified Time None Recorded Concern Status LastModified by Organization Details LastModified Time None Recorded Advance Directives Directive None Recorded Payers Insurance Date Sequence Insurance Name Policy Number Policy Brock Covered Member ID Brock Member ID Guarantor Name 01/08/2018 1 [facility] [employer] - TOGETHER (MEDICAID HMO) Lina Anna [id number] Lina Anna OBGyn Episode No OBEpisode recorded.
--- OUTSIDE RECORDS SUMMARY | 2025-06-28 12:17 | XMS_ITS | Patient Health Record ---
Author Organization [facility] Address [address] [place] [address] Care Team Providers Care Sr. Vendor Management Associate Name Role Phone Blutye Graciela Primary Care Provider UnavailDemian Villarreal Unavailable [phone] Allergies No Known Allergies Reason For Referral No Information Medications Medication SIG (Take, Route, Frequency, Duration) Notes Start Date End Date Status Spironolactone Activ e Tylenol prn Not-Taking Flovent HFA Not-Taki ng Albuterol Not-Taking Meloxicam 15 MG Oral; Duration: 30 Not-Taking traZODone HCl 50 MG Oral; Duration: 30 Not-Taking Meclizine HCl Not-Ta kenny tiZANidine HCl 4 MG TAKE 1 TABLET BY VILMA TH TWICE A DAY Oral; Duration: 30 Not-Taking Sertraline HCl 50 MG Oral; Duration: 90 Days Active Linzess 145 MCG Oral; Duration: 30 Days Active Dicyclomine HCl 10 MG TAKE 1 TO 2 CAPSUL ES BY MOUTH EVERY 6 HOURS IF NEEDED FOR ABDOMINAL DISCOMFORT Orally Every 6 hours if needed; Duration: 30 days Active Omeprazole 40 MG 1 capsule Orally Onc e a day Active Lisinopril 5 MG 2 tablet Orally Once a day Active Vitamin D 1000 UNIT 1 tablet Orally Once a day Active Immunizations Vaccine Route Administration Date Status Comme nts Influenza Unknown 05/28/2024 Administered Influenza Unknown 07/04/2018 Refused Influenza Unknown 07/27/2021 [...] Problem Status W/U Status Risk Notes Problem Cali's esophagus (861011268) Cali's esophagus without dysplasia (K22.70) Active confirmed Problem Epigastric pain (30743659) Abdominal pain, epigastric (R10.13) Active confirmed Problem Elevated liver enzymes level (233915670) Elevated liver function tests (R79.89) Active confirmed Problem Gastroesophageal reflux disease without esophagitis (997199460) Gastroesophageal reflux disease without esophagitis (K21.9) Active confirmed Problem Fatty liver (638083450) Fatty liver (K76.0) Active confirmed Problem Gastroesophageal reflux disease (516984957) Gastroesophageal reflux disease, esophagitis presence not specified (K21.9) Active confirmed Problem Constipation (77111635) Constipation, unspecified constipation type (K59.00) Active confirmed Problem Cali esophagus (326854079) Cali esophagus (K22.70) Active confirmed Problem Irritable bowel syndrome characterized by constipation (227811467) Irritable bowel syndrome with constipation (K58.1) Active confirmed Problem Helicobacter pylori gastrointestinal tract infection (852349899) Helicobacter pylori gastrointestinal tract infection (A04.8) Active confirmed Problem Gastroesophageal reflux disease (117937449) Gastroesophageal reflux disease, unspecified whether esophagitis present (K21.9) Active confirmed Problem Gastroesophageal reflux disease (disorder) (813217545) Chronic GERD (K21.9) Active confirmed Vital Signs Temperature 98.2 degrees Fahrenheit 05/28/2025 Blood pressure diastolic 01 mm Hg 05/28/2025 Height 5 ft 1 in in 05/28/2025 Blood pressure systolic 001 mm Hg 05/28/2025 Weight 179.4 lbs 05/28/2025 BMI 33.89 kg/m2 05/28/2025 Encounters Encounter Location Date Provider Diagnosis [facility] [address] [place] [id number] 05/28/2025 Demian Santos Gastroesophageal ref lux disease, esophagitis presence not specified K21.9 ; Fatty liver K76.0 ; Abdominal pain, epigastric R10.13 ; Constipation, unspecified constipation type K59.00 ; Elevated liver function tests R79.89 ; Cali's esophagus without dysplasia K22.70 and Irritable bowel syndrome with constipation K58.1 Assessments Encounter Date Diagnosis (ICD Code) Assessment Notes Treatment Notes Treatment Clinical Notes Section Notes 05/28/2025 Fatty liver (ICD-10 - K76.0) Try to continue to lose weight and avoid alcohol Overall, Zoraida appears well from a clinical standpoint. Her reflux seems to be quite stable on the current regimen of daily omeprazole. We did review that dietary discretion and weight loss will continue to help with that issue as well. I did advise her to continue omeprazole at least once a day for her reflux symptoms. We did review that she should undergo a follow-up upper endoscopy in 2026 for the previous finding of the tiny area of Cali's esophagus. I did advise her to continue to use the Linzess daily as that seems to be helping with her constipation and she can also use MiraLax at least once or twice [...] I will plan to see Zoraida in 2026 for her next upper endoscopy. However, I did advise her to certainly call should she have any problems or questions I can be of assistance with in the interim. Zoraida was comfortable with this plan. Thank you again for allowing me to participate in Zoraida's care. I shall continue to keep you advised of her progress. 05/28/2025 Gastroesophageal reflux disease, esophagitis presence not specified (ICD-10 - K21.9) Use the omeprazole daily Overall, Zoraida appears well from a clinical standpoint. Her reflux seems to be quite stable on the current regimen of daily omeprazole. We did review that dietary discretion and weight loss will continue to help with that issue as well. I did advise her to continue omeprazole at least once a day for her reflux symptoms. We did review that she should undergo a follow-up upper endoscopy in 2026 for the previous finding of the tiny area of Cali's esophagus. I did advise her to continue to use the Linzess daily as that seems to be helping with her constipation and she can also use MiraLax at least once or twice [...] I will plan to see Zoraida in 2026 for her next upper endoscopy. However, I did advise her to certainly call should she have any problems or questions I can be of assistance with in the interim. Zoraida was comfortable with this plan. Thank you again for allowing me to participate in Zoraida's care. I shall continue to keep you advised of her progress. 05/28/2025 Abdominal pain, epigastric (ICD-10 - R10.13) Use the Dicyclomine and Gas-X for the abdominal pain, bloating, and gas. Try to keep the BM's moving regularly Overall, Zoraida appears well from a clinical standpoint. Her reflux seems to be quite stable on the current regimen of daily omeprazole. We did review that dietary discretion and weight loss will continue to help with that issue as well. I did advise her to continue omeprazole at least once a day for her reflux symptoms. We did review that she should undergo a follow-up upper endoscopy in 2026 for the previous finding of the tiny area of Cali's esophagus. I did advise her to continue to use the Linzess daily as that seems to be helping with her constipation and she can also use MiraLax at least once or twice [...] I will plan to see Zoraida in 2026 for her next upper endoscopy. However, I did advise her to certainly call should she have any problems or questions I can be of assistance with in the interim. Zoraida was comfortable with this plan. Thank you again for allowing me to participate in Zoraida's care. I shall continue to keep you advised of her progress. 05/28/2025 Constipation, unspecified constipation type (ICD-10 - K59.00) Continue the daily Linzess. Use Miralax once or twice a day as needed Overall, Zoraida appears well from a clinical standpoint. Her reflux seems to be quite stable on the current regimen of daily omeprazole. We did review that dietary discretion and weight loss will continue to help with that issue as well. I did advise her to continue omeprazole at least once a day for her reflux symptoms. We did review that she should undergo a follow-up upper endoscopy in 2026 for the previous finding of the tiny area of Cali's esophagus. I did advise her to continue to use the Linzess daily as that seems to be helping with her constipation and she can also use MiraLax at least once or twice [...] I will plan to see Zoraida in 2026 for her next upper endoscopy. However, I did advise her to certainly call should she have any problems or questions I can be of assistance with in the interim. Zoraida was comfortable with this plan. Thank you again for allowing me to participate in Zoraida's care. I shall continue to keep you advised of her progress. 05/28/2025 Elevated liver function tests (ICD-10 - R79.89) Overall, Zoraida appears well from a clinical standpoint. Her reflux seems to be quite stable on the current regimen of daily omeprazole. We did review that dietary discretion and weight loss will continue to help with that issue as well. I did advise her to continue omeprazole at least once a day for her reflux symptoms. We did review that she should undergo a follow-up upper endoscopy in 2026 for the previous finding of the tiny area of Cali's esophagus. I did advise her to continue to use the Linzess daily as that seems to be helping with her constipation and she can also use MiraLax at least once or twice [...] I will plan to see Zoraida in 2026 for her next upper endoscopy. However, I did advise her to certainly call should she have any problems or questions I can be of assistance with in the interim. Zoraida was comfortable with this plan. Thank you again for allowing me to participate in Zoraida's care. I shall continue to keep you advised of her progress. 05/28/2025 Cali's esophagus without dysplasia (ICD-10 - K22.70) Repeat the upper endoscopy in 2026. Overall, Zoraida appears well from a clinical standpoint. Her reflux seems to be quite stable on the current regimen of daily omeprazole. We did review that dietary discretion and weight loss will continue to help with that issue as well. I did advise her to continue omeprazole at least once a day for her reflux symptoms. We did review that she should undergo a follow-up upper endoscopy in 2026 for the previous finding of the tiny area of Cali's esophagus. I did advise her to continue to use the Linzess daily as that seems to be helping with her constipation and she can also use MiraLax at least once or twice [...] I will plan to see Zoraida in 2026 for her next upper endoscopy. However, I did advise her to certainly call should she have any problems or questions I can be of assistance with in the interim. Zoraida was comfortable with this plan. Thank you again for allowing me to participate in Zoraida's care. I shall continue to keep you advised of her progress. 05/28/2025 Irritable bowel syndrome with constipation (ICD-10 - K58.1) Overall, Zoraida appears well from a clinical standpoint. Her reflux seems to be quite stable on the current regimen of daily omeprazole. We did review that dietary discretion and weight loss will continue to help with that issue as well. I did advise her to continue omeprazole at least once a day for her reflux symptoms. We did review that she should undergo a follow-up upper endoscopy in 2026 for the previous finding of the tiny area of Cali's esophagus. I did advise her to continue to use the Linzess daily as that seems to be helping with her constipation and she can also use MiraLax at least once or twice [...] I will plan to see Zoraida in 2026 for her next upper endoscopy. However, I did advise her to certainly call should she have any problems or questions I can be of assistance with in the interim. Zoraida was comfortable with this plan. Thank you again for allowing me to participate in Zoraida's care. I shall continue to keep you advised of her progress. Plan Of Treatment Pending Test Test Name Order Date LIVER PROFILE 04/26/2022 LIVER PROFILE 01/07/2021 LIVER PROFILE 07/27/2021 LIVER PROFILE 12/28/2021 LIVER PROFILE 07/18/2022 IRON + IBC (FE) 01/07/2021 CBC w [...] GI ENDOSCOPY 01/07/2021 UPPER GI ENDOSCOPY 11/13/2023 Insurance Providers Payer Name Payer Address Payer Phone Subscriber Number Group Number Insured Name Patient Relationship to Insured Coverage Start Date Coverage End Date [facility] [address] [place] [address] [id number] ZORAIDA BELLO Self - patient is the insured Medical (General) History Medical History History ICD Code Asthma Denies HI,DM,CVA,renal disease GERD- EGD at [facility]- approx 2014- told of hiatal hernia Hypertension Fatty liver with elevated LF Ts- negative hepatitis B and C serologies other than a positive hepatitis B surface antibody; complete liver workup was negative in 2020; LFTs became significantly elevated in March of 2021 in relation to some alcohol with an ALT of 218 and AST of 129- her iron saturation was 27% at that time with an iron of 88 and a ferritin of 559; her ferritin had been 222 in December 2020. She underwent a liver biopsy in in August 2021 with the finding of only mild inflammatory changes and only minimal fibrosis in relation to what was felt to be fatty liver and CARDENAS GERD with associated Cali 's esophagus- EGD in 12/2020 revealed a small hiatal hernia, [...] nor significant gastritis Surgical History Surgery Date(Month/Year) Moises scott 11/24 Breast Reduction 03/17 Cholecystectomy for gallstones in 08/2018 -Dr. Murray Vocal cord surgery(polyps) 2013
[2025-06-28 12:23] LABS: MANUAL DIFF FLAG NO
[2025-06-28 12:25] LABS: Appearance Urine Clear; Glucose Urine UA Negative (Negative); Hematocrit 40.4 % (37.0-47.0); Hemoglobin 13.1 g/dl (12.0-16.0); Imm Gran Abs Auto 0.01 X10*3/uL (0.00-0.03); Imm Gran Pct Auto 0.2 % (0.0-0.4); Lymphocytes Absolute Auto 2.6 X10*3/uL (1.2-4.9); Mean Corpuscular HGB Conc 32.4 g/dl (31.0-35.0); Mean Corpuscular Hemoglobin 25.9 pg (27.0-33.0); Mean Corpuscular Volume 79.8 fL (80.0-98.0); NRBC Abs Auto 0.000 X10*3/uL (0.0-0.012); NRBC Pct Auto 0.0 /100WBC (0.0-0.2); PH 7.0 (5.0-9.0); Platelet Count 316 X10*3/uL (160-400); Red Blood Count 5.06 X10*6/uL (4.20-5.50); Specific Gravity - Urine 1.010 (1.005-1.025); UMIC TRIGGER UACC YES; White Blood Count 6.5 X10*3/uL (4.8-10.8)
[2025-06-28 12:26] LABS: UPreg QC Valid YES
[2025-06-28 12:30] LABS: UACC Culture Trigger YES
[2025-06-28 12:38] LABS: Alanine Aminotransferase 24 U/L (0-31); Albumin Level 4.5 g/dL (3.5-5.0); Alkaline Phosphatase 72 U/L (39-117); Anion Gap 13 (12-20); Aspartate Amino Transferase 22 U/L (5-31); Blood Urea Nitrogen 9 mg/dL (9-16); Calcium 9.0 mg/dL (8.4-10.2); Carbon Dioxide 24 mmol/L (22-29); Chloride 105 mmol/L (96-108); Creatinine Clr Calc Pharmacy 113.8; Estimated Glomerular Filt Rate > 60; Lipase 31 U/L (8-78); Magnesium 1.9 mg/dL (1.6-2.6); Potassium 3.7 mmol/L (3.3-5.1); Sodium 138 mmol/L (135-145); Total Protein 7.9 g/dL (6.5-8.0)
[2025-06-28 15:00] LABS: D Dimer High Sensitivity 165 NG/ML
[2025-06-28 15:24] VITALS: BP 109/77; PULSE 78; RESP 16; TEMP 36.8; O2SAT 98
[2025-06-28] MEDS: iohexoL 350 MG/ML 100 ML INFUS..BTL IV (15:33)
[2025-06-28 17:35] LABS: Troponin-I High Sensitivity < 2.7 ng/L (<3.5-17.0)
[2025-06-28 17:48] VITALS: BP 109/77; PULSE 78; RESP 16; TEMP 36.8; O2SAT 98
== END 2025-06-28 17:51 | disposition home or self-care (01) ==
PROVIDERS: Physician Assistant; Physician Assistant Medical; Emergency Provider Emergency Medicine Emergency Medical Services; PCP Internal Medicine
DX: R19.00 Intra-abdominal and pelvic swelling, mass and lump, unspecified site (principal); R42 Dizziness and giddiness; R19.05 Periumbilic swelling, mass or lump; R06.02 Shortness of breath; I45.10 Unspecified right bundle-branch block; Z79.899 Other long term (current) drug therapy
CPT/HCPCS: 36415; 74177; 80048; 80076; 81001; 81025; 83690; 83735; 84484; 85025; 85379; 87086; 93005; 99285; Q9967

== ENCOUNTER → 2025-06-28 11:53 | Outpatient (BNV) | payer OTHER, SELFPAY | PROVIDERS: Emergency Provider Emergency Medicine Emergency Medical Services; PCP Internal Medicine; Visit Provider Internal Medicine Cardiovascular Disease | DX: I45.10 Unspecified right bundle-branch block (principal) | CPT/HCPCS: 93010 ==

== ENCOUNTER → 2025-06-28 15:12 | Outpatient (BNV) | payer OTHER, SELFPAY | PROVIDERS: Emergency Provider Emergency Medicine Emergency Medical Services; PCP Internal Medicine; Visit Provider Radiology Diagnostic Radiology | DX: R19.05 Periumbilic swelling, mass or lump (principal) | CPT/HCPCS: 74177 ==